=== PATIENT | male | born 1940 | race Caucasian/White ===

== ENCOUNTER → 2019-04-18 10:49 | Outpatient (BNVA) | payer MEDICARE, SELFPAY | PROVIDERS: PCP Family Medicine; Visit Provider Family Medicine | DX: E78.2 Mixed hyperlipidemia (principal); E11.9 Type 2 diabetes mellitus without complications; Z79.4 Long term (current) use of insulin; K21.9 Gastro-esophageal reflux disease without esophagitis; I10 Essential (primary) hypertension; G62.9 Polyneuropathy, unspecified; R52 Pain, unspecified; J61 Pneumoconiosis due to asbestos and other mineral fibers | CPT/HCPCS: 80053; 80061; 83036; 85025 ==

== ENCOUNTER → 2019-10-09 16:07 | Outpatient (BNVA) | payer MEDICARE, SELFPAY | PROVIDERS: PCP Family Medicine; Visit Provider Family Medicine | DX: E11.9 Type 2 diabetes mellitus without complications (principal); M10.9 Gout, unspecified; E78.2 Mixed hyperlipidemia; K57.92 Diverticulitis of intestine, part unspecified, without perforation or abscess without bleeding | CPT/HCPCS: 80053; 80061; 83036; 84550; 85025 ==

== ENCOUNTER → 2020-04-20 12:21 | Outpatient (BNVA) | payer MEDICARE, SELFPAY | PROVIDERS: PCP Family Medicine; Visit Provider Family Medicine | DX: E11.9 Type 2 diabetes mellitus without complications (principal); E78.2 Mixed hyperlipidemia; I10 Essential (primary) hypertension; K21.9 Gastro-esophageal reflux disease without esophagitis; N40.0 Benign prostatic hyperplasia without lower urinary tract symptoms; Z68.28 Body mass index [BMI] 28.0-28.9, adult | CPT/HCPCS: 80053; 80061; 83036; 84443; 85025; G0103 ==

== ENCOUNTER → 2020-07-27 09:25 | Outpatient (BNVA) | payer MEDICARE, SELFPAY | PROVIDERS: PCP Family Medicine; Visit Provider Family Medicine | DX: K21.9 Gastro-esophageal reflux disease without esophagitis (principal); E11.9 Type 2 diabetes mellitus without complications; E78.2 Mixed hyperlipidemia; I10 Essential (primary) hypertension; Z68.28 Body mass index [BMI] 28.0-28.9, adult | CPT/HCPCS: 80053; 80061; 83036; 84443; 85025 ==

== ENCOUNTER → 2020-12-03 12:14 | Outpatient (BNVA) | payer MEDICARE, SELFPAY | PROVIDERS: PCP Family Medicine; Visit Provider Family Medicine | DX: E11.9 Type 2 diabetes mellitus without complications (principal); E78.2 Mixed hyperlipidemia; I10 Essential (primary) hypertension; K21.9 Gastro-esophageal reflux disease without esophagitis; M19.90 Unspecified osteoarthritis, unspecified site | CPT/HCPCS: 80053; 80061; 83036; 84443; 85025 ==

== ENCOUNTER → 2021-09-07 09:41 | Outpatient (BNVA) | payer MEDICARE, SELFPAY | PROVIDERS: PCP Family Medicine; Visit Provider Family Medicine | DX: E11.9 Type 2 diabetes mellitus without complications (principal); E78.5 Hyperlipidemia, unspecified; M10.9 Gout, unspecified; I10 Essential (primary) hypertension; Z79.4 Long term (current) use of insulin; R05.8 Other specified cough | CPT/HCPCS: 71046; 80053; 80061; 83036; 84443; 84550; 85025; 87635 ==

== ENCOUNTER 2022-01-02 22:26 | Inpatient (IN) | payer MEDICARE, SELFPAY ==
[2022-01-02 22:28] VITALS: BP 161/76; PULSE 106; RESP 26; TEMP 36.9; O2SAT 91; BMI 27.3
--- NOTE | 2022-01-02 22:33 | XRR_ITS ---
PROCEDURE INFORMATION: Exam: XR Chest Exam date and time: 01/03/2022 12:01 AM Age: 81 years old Clinical indication: Pain; Chest pressure; Additional info: Cp TECHNIQUE: Imaging protocol: Radiologic exam of the chest. Views: 1 view. COMPARISON: CR XR chest 2V* [id number] 09/07/2021 9:43 AM FINDINGS: Lungs: Patchy bilateral airspace infiltrates. Pleural spaces: Small bilateral right greater than left pleural effusions which appears somewhat loculated on the right. Calcified pleural plaques appear chronic. Heart/Mediastinum: Unremarkable. No cardiomegaly. Bones/joints: Unremarkable. XR/XR chest 1V portable [id number] IMPRESSION: 1. Small bilateral right greater than left pleural effusions which appears somewhat loculated on the right. 2. Patchy bilateral airspace infiltrates. 3. Calcified pleural plaques appear chronic.
--- NOTE | 2022-01-02 22:40 | ED_ITS ---
Documented by User: KINZA Hylton 01/03/22 00:42 HPI - SOB/Dyspnea General: Chief Complaint: Shortness of Breath/Dyspnea Stated Complaint: SOB Time Seen by Provider: 01/02/22 22:31 History of Present Illness: HPI Narrative: 81-year-old male patient comes in today for complaints of shortness of breath. Patient was treated for acute bronchitis by his primary care at the first of the month. Patient has a history of diabetes, degenerative disc disease, COPD, GERD, hyperlipidemia, hypertension, asbestosis. Patient routinely sees Dr. Xavier and has no history of congestive heart failure. Patient reports no improvement in shortness of breath even after completion of antibiotics and steroids as prescribed by primary care. Patient appears in no pain. Patient appears nontoxic. Patient uses oxygen 2 liters at home. Associated symptoms: Reports chest pain (Described as pressure); Deny fever(s) Review of Systems Const: Denies: fever(s) Card: Reports: chest pain (Described as pressure) Resp: Reports: dyspnea Musc: Reports: extremity swelling (Bilateral lower extremities) PFSH ED PFSH: Medical History Asbestosis BPH (benign prostatic hyperplasia) COPD (chronic obstructive pulmonary disease) DDD (degenerative disc disease) Diabetes GERD (gastroesophageal reflux disease) Gout History of sudden cardiac arrest successfully resuscitated Hyperlipidemia Hypertension Surgical History History of hip replacement Hx of bilateral cataract extraction Hx of non-cataract eye surgery Family History Mother CAD (coronary artery disease) Brother Diabetes Lung disease Sister Diabetes Denies family history of Clotting disorder Dementia Chronic kidney disease (CKD) Suicide Anesthesia complication Bleeding disorder Cancer Stroke Social History Smoking and tobacco status: never smoked Alcohol intake: never Marital status: History of recent travel: No Physical Exam Const: COMMON NORMALS: alert HENMT: COMMON NORMALS: normocephalic HEAD & SCALP: normocephalic Neck/C-Spine: CERVICAL SPINE: No pain with cervical ROM Resp: COMMON NORMALS: normal respiratory effort AUSCULTATION: diminished lung sounds Cardio: COMMON NORMALS: regular rhythm RATE: tachycardic RHYTHM: regular rhythm HEART SOUNDS: Murmur heart sound present GI: COMMON NORMALS: non-tender Back/Pelvis: COMMON NORMALS: thoracic and lumbar spine normal to inspection Extremity: NARRATIVE EXTREMITY EXAM: Bilateral lower extremity +1 pitting edema from knee down Neuro: SENSORIUM/ORIENTATION: Yes alert Skin: COMMON NORMALS: turgor normal GENERAL SKIN EXAM: turgor normal Course ED course: 2351, reviewed patient with Dr. Lopez regarding a creatinine of 6.0. We will plan to admit patient for LIU. We ordered further testing with magnesium and phosphorus and a CT of the renal to rule out obstruction. Vital Signs: Vital signs: Vital Signs Temperature 97.9 F 01/03/22 04:00 Pulse Rate 65 01/03/22 04:00 Respiratory Rate 17 01/03/22 04:00 Blood Pressure 128/71 01/03/22 04:00 Pulse Oximetry 94 01/03/22 04:00 Oxygen Delivery Me thod 01/03/22 03:17 Oxygen Flow Rate 4 01/03/22 03:17 MDM - SOB/Dyspnea Medical Decision Making Patient comes in today for continued complaints of shortness of breath even after completion of treatment for acute bronchitis. Patient also reports increased swelling to the lower extremities. On exam patient has decreased breath sounds in bilateral bases. Patient does have mild systolic murmur. Abdomen soft nontender. Skin is warm and dry. Patient does have +1 pitting edema to the lower extremities. Vital signs have some mild elevation of blood pressure, oxygen saturation of 91% with 4 L nasal cannula. Differential diagnosis includes CHF, pneumonia, LIU, respiratory failure. Lab Data : 01/02/22 22:50 01/02/22 22:50 Labs/Radiology: Radiology Impressions Chest X-Ray 01/02/22 22:33 IMPRESSION: 1. Small bilateral right greater than left pleural effusions which appears somewhat loculated on the right. 2. Patchy bilateral airspace infiltrates. 3. Calcified pleural plaques appear chronic. Abdomen/Pelvis CT 01/02/22 23:44 IMPRESSION: 1. Severe bilateral hydronephrosis and hydroureter with distention of the urinary bladder without focal obstructing lesion seen, findings may reflect urinary bladder outflow obstruction, however, an etiology is not forthcoming from this exam. 2. Diverticulosis without diverticulitis. 3. Constipation. 4. Bilateral hip arthroplasty changes. 5. Cardiomegaly. 6. Coronary artery atherosclerotic calcifications. 7. Bibasilar atelectasis versus infiltrate, dedicated chest CT could further evaluate this given a somewhat localized appearance of the airspace opacities. 8. Pleural calcifications. 9. Small right pleural effusion. Laboratory Results WBC 12.9 10^3/uL (4.0-10.0) H 01/02/22 22:50 RBC 3.66 10^6/uL (4.1-5.3) L 01/02/22 22:50 Hgb 10.6 g/dL (11.7-16.6) L 01/02/22 22:50 Hct 34.0 % (42.0-52.0) L 01/02/22 22:50 MCV 92.9 fl (80-94) 01/02/22 22:50 MCH 29.0 pg (28.0-34.0) 01/02/22 22:50 MCHC 31.2 g/dL (30.0-36.0) 01/02/22 22:50 RDW 13.9 % (12.1-15.1) 01/02/22 22:50 Plt Count 271 10^3/cmm (130-400) 01/02/22 22:50 MPV 10.1 fL (7.4-10.4) 01/02/22 22:50 Neut % (Auto) 86.5 % 01/02/22 22:50 Lymph % (Auto) 4.7 % 01/02/22 22:50 [place] % (Auto) 6.8 % 01/02/22 22:50 Eos % (Auto) 1.3 % 01/02/22 22:50 Baso % (Auto) 0.2 % 01/02/22 22:50 Neut # (Auto) 11.17 10^3/uL (1.8-7.7) H 01/02/22 22:50 Lymph # (Auto) 0.6 10^3/uL (0.8-4.8) L 01/02/22 22:50 [place] # (Auto) 0.9 10^3/uL (0.2-0.9) 01/02/22 22:50 Eos # (Auto) 0.2 10^3/uL (0.0-0.8) 01/02/22 22:50 Baso # (Auto) 0.0 10^3/uL (0.0-0.1) 01/02/22 22:50 Nucleated RBC % (auto) 0 % 01/02/22 22:50 Nucleated RBCs # 0.0 /100WBC 01/02/22 22:50 D-Dimer 1.13 ug/mIFEU (0-0.59) H 01/02/22 22:50 Sodium 141 mmol/L (136-145) 01/02/22 22:50 Potassium 4.7 mmol/L (3.5-5.1) 01/02/22 22:50 Chloride 100 mmol/L (98-107) 01/02/22 22:50 Carbon Dioxide 29 mmol/L (22-29) 01/02/22 22:50 Anion Gap 16.7 (5-19) 01/02/22 22:50 BUN 60 mg/dL (8-23) H 01/02/22 22:50 Creatinine 6.0 mg/dL (0.7-1.2) H* 01/02/22 22:50 GFR Calculation Not Reportable 01/02/22 22:50 Glucose 197 mg/dL (65-115) H 01/02/22 22:50 Calculated Osmolality 314 mOsm/kg (285-295) H 01/02/22 22:50 Calcium 8.5 mg/dL (8.5-10.5) 01/02/22 22:50 Phosphorus 6.2 mg/dL (2.5-4.5) H 01/02/22 22:50 Magnesium 4.0 mg/dL (1.7-2.3) H 01/02/22 22:50 Total Bilirubin 0.3 mg/dL (0.15-1.2) 01/02/22 22:50 AST 18 U/L (0-40) 01/02/22 22:50 ALT 11 U/L (0-41) 01/02/22 22:50 Alkaline Phosphatase 99 U/L (40-130) 01/02/22 22:50 Troponin T Baseline 68 ng/L (0-15) H 01/02/22 22:50 Troponin T 120 Minute 67.08 ng/L (0-15) H 01/03/22 00:42 Delta Troponin T -0.92 ABS# (0-10) L 01/03/22 00:42 C-Reactive Protein 80.5 mg/L (0.0-4.9) H 01/02/22 22:50 NT-Pro-B Natriuret Pep 2302 pg/mL (0-450) H 01/02/22 22:50 Total Protein 6.9 g/dL (6.6-8.7) 01/02/22 22:50 Albumin 3.4 g/dL (3.5-5.2) L 01/02/22 22:50 Globulin 3.5 g/dL (1.3-4.6) 01/02/22 22:50 Procalcitonin 0.23 ng/mL (0-0.5) 01/02/22 22:50 TSH 1.61 uIU/mL (0.27-4.20) 01/02/22 22:50 Nasal Influ A H1 2009 PCR Not detected (NOT DETECT) 01/03/22 00:43 Adenovirus (PCR) Not detected (NOT DETECT) 01/03/22 00:43 C. pneumoniae DNA (PCR) Not detected (NOT DETECT) 01/03/22 00:43 Coronavirus 229E (PCR) Not detected (NOT DETECT) 01/03/22 00:43 Human Metapneumovir PCR Not detected (NOT DETECT) 01/03/22 00:43 Influenza A (H1) PCR Not detected (NOT DETECT) 01/03/22 00:43 Influenza A (H3) PCR Not detected (NOT DETECT) 01/03/22 00:43 Influenza Type A (PCR) Not detected (NOT DETECT) 01/03/22 00:43 Influenza Type B (PCR) Not detected (NOT DETECT) 01/03/22 00:43 M. pneumoniae (PCR) Not detected (NOT DETECT) 01/03/22 00:43 Parainfluenza 1 (PCR) Not detected (NOT DETECT) 01/03/22 00:43 Parainfluenza 2 (PCR) Not detected (NOT DETECT) 01/03/22 00:43 Parainfluenza 3 (PCR) Not detected (NOT DETECT) 01/03/22 00:43 Parainfluenza 4 (PCR) Not detected (NOT DETECT) 01/03/22 00:43 RSV Type A (PCR) Not detected (NOT DETECT) 01/03/22 00:43 RSV Type B (PCR) Not detected (NOT DETECT) 01/03/22 00:43 Entero/Rhino (PCR) Not detected (NOT DETECT) 01/03/22 00:43 SARS-CoV-2 (PCR) Not detected (NOT DETECT) 01/03/22 00:43 Discharge Plan Discharge Patient Disposition: Admitted As Inpatient Admit Provider: Scott Corrales Clinical Impression: Acute renal failure, Lower obstructive uropathy Condition: Fair Coding Level of Care Code ED [place] Layup Line Back Feeder for Chg Fwd Exam Comprehensive Documented by User: Gordy Lopez DO 01/03/22 05:01 HPI - SOB/Dyspnea General: Chief Complaint: Shortness of Breath/Dyspnea Stated Complaint: SOB Time Seen by Provider: 01/02/22 22:31 PFSH ED PFSH: Medical History Asbestosis BPH (benign prostatic hyperplasia) COPD (chronic obstructive pulmonary disease) DDD (degenerative disc disease) Diabetes GERD (gastroesophageal reflux disease) Gout History of sudden cardiac arrest successfully resuscitated Hyperlipidemia Hypertension Surgical History History of hip replacement Hx of bilateral cataract extraction Hx of non-cataract eye surgery Family History Mother CAD (coronary artery disease) Brother Diabetes Lung disease Sister Diabetes Denies family history of Clotting disorder Dementia Chronic kidney disease (CKD) Suicide Anesthesia complication Bleeding disorder Cancer Stroke Social History Smoking and tobacco status: never smoked Alcohol intake: never Marital status: History of recent travel: No Course Vital Signs: Vital signs: Vital Signs Temperature 97.9 F 01/03/22 04:00 Pulse Rate 65 01/03/22 04:00 Respiratory Rate 17 01/03/22 04:00 Blood Pressure 128/71 01/03/22 04:00 Pulse Oximetry 94 01/03/22 04:00 Oxygen Delivery Me thod 01/03/22 03:17 Oxygen Flow Rate 4 01/03/22 03:17 MDM - SOB/Dyspnea Medical Decision Making Patient comes in today for continued complaints of shortness of breath even after completion of treatment for acute bronchitis. Patient also reports increased swelling to the lower extremities. On exam patient has decreased breath sounds in bilateral bases. Patient does have mild systolic murmur. Abdomen soft nontender. Skin is warm and dry. Patient does have +1 pitting edema to the lower extremities. Vital signs have some mild elevation of blood pressure, oxygen saturation of 91% with 4 L nasal cannula. Differential diagnosis includes CHF, pneumonia, LIU, respiratory failure. This patient was originally seen by KINZA Toussaint.? I agree with his history, evaluation, and treatment. This patient is found to have a creatinine of 6 with a BUN of 60. No history of renal failure. CT was performed for kidney structure and to rule out obstructive uropathy. It shows significant bilateral hydronephrosis and hydroureter with distention of the urinary bladder. Cervantes is placed, with 1100 mL immediately out. He will be admitted. Hospitalist agrees. Lab Data : 01/02/22 22:50 01/02/22 22:50 Labs/Radiology: Radiology Impressions Chest X-Ray 01/02/22 22:33 IMPRESSION: 1. Small bilateral right greater than left pleural effusions which appears somewhat loculated on the right. 2. Patchy bilateral airspace infiltrates. 3. Calcified pleural plaques appear chronic. Abdomen/Pelvis CT 01/02/22 23:44 IMPRESSION: 1. Severe bilateral hydronephrosis and hydroureter with distention of the urinary bladder without focal obstructing lesion seen, findings may reflect urinary bladder outflow obstruction, however, an etiology is not forthcoming from this exam. 2. Diverticulosis without diverticulitis. 3. Constipation. 4. Bilateral hip arthroplasty changes. 5. Cardiomegaly. 6. Coronary artery atherosclerotic calcifications. 7. Bibasilar atelectasis versus infiltrate, dedicated chest CT could further evaluate this given a somewhat localized appearance of the airspace opacities. 8. Pleural calcifications. 9. Small right pleural effusion. Laboratory Results WBC 12.9 10^3/uL (4.0-10.0) H 01/02/22 22:50 RBC 3.66 10^6/uL (4.1-5.3) L 01/02/22 22:50 Hgb 10.6 g/dL (11.7-16.6) L 01/02/22 22:50 Hct 34.0 % (42.0-52.0) L 01/02/22 22:50 MCV 92.9 fl (80-94) 01/02/22 22:50 MCH 29.0 pg (28.0-34.0) 01/02/22 22:50 MCHC 31.2 g/dL (30.0-36.0) 01/02/22 22:50 RDW 13.9 % (12.1-15.1) 01/02/22 22:50 Plt Count 271 10^3/cmm (130-400) 01/02/22 22:50 MPV 10.1 fL (7.4-10.4) 01/02/22 22:50 Neut % (Auto) 86.5 % 01/02/22 22:50 Lymph % (Auto) 4.7 % 01/02/22 22:50 [place] % (Auto) 6.8 % 01/02/22 22:50 Eos % (Auto) 1.3 % 01/02/22 22:50 Baso % (Auto) 0.2 % 01/02/22 22:50 Neut # (Auto) 11.17 10^3/uL (1.8-7.7) H 01/02/22 22:50 Lymph # (Auto) 0.6 10^3/uL (0.8-4.8) L 01/02/22 22:50 [place] # (Auto) 0.9 10^3/uL (0.2-0.9) 01/02/22 22:50 Eos # (Auto) 0.2 10^3/uL (0.0-0.8) 01/02/22 22:50 Baso # (Auto) 0.0 10^3/uL (0.0-0.1) 01/02/22 22:50 Nucleated RBC % (auto) 0 % 01/02/22 22:50 Nucleated RBCs # 0.0 /100WBC 01/02/22 22:50 D-Dimer 1.13 ug/mIFEU (0-0.59) H 01/02/22 22:50 Sodium 141 mmol/L (136-145) 01/02/22 22:50 Potassium 4.7 mmol/L (3.5-5.1) 01/02/22 22:50 Chloride 100 mmol/L (98-107) 01/02/22 22:50 Carbon Dioxide 29 mmol/L (22-29) 01/02/22 22:50 Anion Gap 16.7 (5-19) 01/02/22 22:50 BUN 60 mg/dL (8-23) H 01/02/22 22:50 Creatinine 6.0 mg/dL (0.7-1.2) H* 01/02/22 22:50 GFR Calculation Not Reportable 01/02/22 22:50 Glucose 197 mg/dL (65-115) H 01/02/22 22:50 Calculated Osmolality 314 mOsm/kg (285-295) H 01/02/22 22:50 Calcium 8.5 mg/dL (8.5-10.5) 01/02/22 22:50 Phosphorus 6.2 mg/dL (2.5-4.5) H 01/02/22 22:50 Magnesium 4.0 mg/dL (1.7-2.3) H 01/02/22 22:50 Total Bilirubin 0.3 mg/dL (0.15-1.2) 01/02/22 22:50 AST 18 U/L (0-40) 01/02/22 22:50 ALT 11 U/L (0-41) 01/02/22 22:50 Alkaline Phosphatase 99 U/L (40-130) 01/02/22 22:50 Troponin T Baseline 68 ng/L (0-15) H 01/02/22 22:50 Troponin T 120 Minute 67.08 ng/L (0-15) H 01/03/22 00:42 Delta Troponin T -0.92 ABS# (0-10) L 01/03/22 00:42 C-Reactive Protein 80.5 mg/L (0.0-4.9) H 01/02/22 22:50 NT-Pro-B Natriuret Pep 2302 pg/mL (0-450) H 11 22:50 Total Protein 6.9 g/dL (6.6-8.7) 01/02/22 22:50 Albumin 3.4 g/dL (3.5-5.2) L 01/02/22 22:50 Globulin 3.5 g/dL (1.3-4.6) 01/02/22 22:50 Procalcitonin 0.23 ng/mL (0-0.5) 01/02/22 22:50 TSH 1.61 uIU/mL (0.27-4.20) 01/02/22 22:50 Nasal Influ A H1 2009 PCR Not detected (NOT DETECT) 01/03/22 00:43 Adenovirus (PCR) Not detected (NOT DETECT) 01/03/22 00:43 C. pneumoniae DNA (PCR) Not detected (NOT DETECT) 01/03/22 00:43 Coronavirus 229E (PCR) Not detected (NOT DETECT) 01/03/22 00:43 Human Metapneumovir PCR Not detected (NOT DETECT) 01/03/22 00:43 Influenza A (H1) PCR Not detected (NOT DETECT) 01/03/22 00:43 Influenza A (H3) PCR Not detected (NOT DETECT) 01/03/22 00:43 Influenza Type A (PCR) Not detected (NOT DETECT) 01/03/22 00:43 Influenza Type B (PCR) Not detected (NOT DETECT) 01/03/22 00:43 M. pneumoniae (PCR) Not detected (NOT DETECT) 01/03/22 00:43 Parainfluenza 1 (PCR) Not detected (NOT DETECT) 01/03/22 00:43 Parainfluenza 2 (PCR) Not detected (NOT DETECT) 01/03/22 00:43 Parainfluenza 3 (PCR) Not detected (NOT DETECT) 01/03/22 00:43 Parainfluenza 4 (PCR) Not detected (NOT DETECT) 01/03/22 00:43 RSV Type A (PCR) Not detected (NOT DETECT) 01/03/22 00:43 RSV Type B (PCR) Not detected (NOT DETECT) 01/03/22 00:43 Entero/Rhino (PCR) Not detected (NOT DETECT) 01/03/22 00:43 SARS-CoV-2 (PCR) Not detected (NOT DETECT) 01/03/22 00:43 Discharge Plan Discharge Patient Disposition: Admitted As Inpatient Admit Provider: Scott Corrales Clinical Impression: Acute renal failure, Lower obstructive uropathy Condition: Fair Coding Level of Care Code ED [place] [employer]up Line Back Feeder for Chg Fwd Exam Comprehensive
--- NOTE | 2022-01-02 22:44 | ECG_ITS ---
[facility] Test Date: 2022-01-02 Pat Name: Darin Bhardwaj Department: Room: Gender: Male Inventory Accountant: : 1940 Requested By: Raul Salazar Order Number: [id number] Grace MD: Burke Xavier M.D. Measurements Intervals [place] Rate: 98 P: 26 FL: 168 QRS: -19 QRSD: 98 T: 63 QT: 307 QTc: 394 Interpretive Statements SINUS RHYTHM NONSPECIFIC T-WAVE ABNORMALITY No previous ECG available for comparison Electronically Signed On 01-04-2022 7:01:17 DESIZING PAD OPERATOR by Burke Xavier M.D. [email or web address] [email or web address]/store/[id number]
[2022-01-02 23:01] LABS: Basophils % 0.2 %; Eosinophils # 0.2 10^3/uL (0.0-0.8); Eosinophils % 1.3 %; Hemoglobin 10.6 g/dL (11.7-16.6); Lymphocytes # 0.6 10^3/uL (0.8-4.8); Lymphocytes % 4.7 %; Mean Corpuscular HGB Conc 31.2 g/dL (30.0-36.0); Mean Corpuscular Volume 92.9 fl (80-94); Mean Platelet Volume 10.1 fL (7.4-10.4); Monocytes # 0.9 10^3/uL (0.2-0.9); Monocytes % 6.8 %; Neutrophils # 11.17 10^3/uL (1.8-7.7); Neutrophils % 86.5 %; Nucleated Red Blood Cells % 0 %; Platelet Count 271 10^3/cmm (130-400); Red Blood Count 3.66 10^6/uL (4.1-5.3); Red Cell Distribution Width 13.9 % (12.1-15.1); White Blood Count 12.9 10^3/uL (4.0-10.0)
[2022-01-02 23:03] VITALS: BP 153/79; PULSE 97; RESP 18; O2SAT 96
[2022-01-02 23:16] VITALS: BP 153/77; PULSE 94; RESP 20; O2SAT 97
[2022-01-02 23:17] LABS: Troponin(5th) Baseline 68 ng/L (0-15)
[2022-01-02 23:25] LABS: Alanine Aminotransferase 11 U/L (0-41); Albumin Level 3.4 g/dL (3.5-5.2); Alkaline Phosphatase 99 U/L (40-130); Anion Gap 16.7 (5-19); Aspartate Amino Transferase 18 U/L (0-40); Blood Urea Nitrogen 60 mg/dL (8-23); Calcium 8.5 mg/dL (8.5-10.5); Carbon Dioxide 29 mmol/L (22-29); Chloride 100 mmol/L (98-107); Globulin 3.5 g/dL (1.3-4.6); Glucose 197 mg/dL (65-115); NT Pro B Type Natriuretic Pept 2302 pg/mL (0-450); Osmolality Calculated 314 mOsm/kg (285-295); Potassium 4.7 mmol/L (3.5-5.1); Sodium 141 mmol/L (136-145); Thyroid Stimulating Hormone 1.61 uIU/mL (0.27-4.20); Total Bilirubin 0.3 mg/dL (0.15-1.2); Total Protein 6.9 g/dL (6.6-8.7)
[2022-01-02 23:30] VITALS: BP 151/78; PULSE 93; RESP 16; O2SAT 95
--- NOTE | 2022-01-02 23:44 | CTR_ITS ---
PROCEDURE INFORMATION: Exam: CT Abdomen And Pelvis Without Contrast Exam date and time: 01/03/2022 12:02 AM Age: 81 years old Clinical indication: Other: Acute renal failure TECHNIQUE: Imaging protocol: Computed tomography of the abdomen and pelvis without contrast. Radiation optimization: All CT scans at this facility use at least one of these dose optimization techniques: automated exposure control; mA and/or kV adjustment per patient size (includes targeted exams where dose is matched to clinical indication); or iterative reconstruction. COMPARISON: CT chest w con* [id number] 03/07/2016 8:49 AM RADIATION DOSE METRICS: Total DLP (mGy-cm): 910.04 FINDINGS: Lungs: Bibasilar atelectasis versus infiltrate, dedicated chest CT could further evaluate this given a somewhat localized appearance of the airspace opacities. Pleural spaces: Pleural calcifications. Small right pleural effusion. Heart: Cardiomegaly. Coronary artery atherosclerotic calcifications. Liver: Normal. No mass. Gallbladder and bile ducts: Normal. No calcified stones. No ductal dilation. Pancreas: Normal. No ductal dilation. Spleen: Normal. No splenomegaly. Adrenal glands: Normal. No mass. Kidneys and ureters: Severe bilateral hydronephrosis and hydroureter with distention of the urinary bladder without focal obstructing lesion seen, findings may reflect urinary bladder outflow obstruction, however, an etiology is not forthcoming from this exam. Stomach and bowel: Diverticulosis without diverticulitis. Constipation. Appendix: No evidence of appendicitis. Intraperitoneal space: Unremarkable. No free air. No significant fluid collection. Vasculature: Unremarkable. No abdominal aortic aneurysm. Lymph nodes: Unremarkable. No enlarged lymph nodes. Urinary bladder: See Kidneys and ureters finding. Reproductive: Unremarkable as visualized. Bones/joints: Bilateral hip arthroplasty changes. Soft tissues: Unremarkable. CT/CT kidney stone [id number] IMPRESSION: 1. Severe bilateral hydronephrosis and hydroureter with distention of the urinary bladder without focal obstructing lesion seen, findings may reflect urinary bladder outflow obstruction, however, an etiology is not forthcoming from this exam. 2. Diverticulosis without diverticulitis. 3. Constipation. 4. Bilateral hip arthroplasty changes. 5. Cardiomegaly. 6. Coronary artery atherosclerotic calcifications. 7. Bibasilar atelectasis versus infiltrate, dedicated chest CT could further evaluate this given a somewhat localized appearance of the airspace opacities. 8. Pleural calcifications. 9. Small right pleural effusion.
[2022-01-02 23:45] VITALS: BP 156/73; PULSE 92; RESP 18; O2SAT 97
[2022-01-03] VITALS (18 sets, daily range): BP systolic 121–154; BP diastolic 64–109; PULSE 65–88; RESP 14–22; TEMP 36.6–37; O2SAT 93–97
[2022-01-03 00:05] LABS: Phosphorus 6.2 mg/dL (2.5-4.5)
[2022-01-03 00:07] LABS: C Reactive Protein 80.5 mg/L (0.0-4.9)
[2022-01-03 00:14] LABS: Procalcitonin 0.23 ng/mL (0-0.5)
--- NOTE | 2022-01-03 00:33 | ECG_ITS ---
[facility] Test Date: 2022-01-03 Pat Name: Darin Bhardwaj Department: Room: 253 Gender: Male Tile Professional: : 1940 Requested By: Raul Salazar Order Number: [id number] Grace MD: Burke Xavier M.D. Measurements Intervals [place] Rate: 93 P: 34 [place]: 185 QRS: -19 QRSD: 102 T: 59 QT: 335 QTc: 417 Interpretive Statements SINUS RHYTHM LEFT ATRIAL ENLARGEMENT [-0.15mV P-WAVE IN V1/V2] Compared to ECG 01/02/2022 22:44:48 Atrial abnormality now present T-wave abnormality no longer present Electronically Signed On 01-04-2022 7:18:52 CLIENT RELATION SPECIALIST by Burke Xavier M.D. [id number]
--- NOTE | 2022-01-03 01:10 | P.HP_ITS ---
Providers/Chief Complaint Admitting Physician: Scott Corrales Primary Care Provider: Lucinda Rand MD Chief Complaint: SOB History of Present Illness Pleasant 81-year-old gentleman with history of COPD, BPH, history of asbestosis, on 2 L oxygen only nightly usually, among other comorbidities about 10 days ago was seen by his primary provider and started on treatment for bilateral lower lobe pneumonia, completed a course of antibiotic with Levaquin, Solu-Medrol. He reports having persistent dyspnea, particular with exertion, to the point that once he was trying to get some ice from the ice dispenser at the fridge and while doing that he got lightheaded and fainted. He denies any chest pain. He sees Dr. Xavier in office, but denies any past CAD history, history of CHF, or other cardiac problems, but states Giurgius due to general medical condition with diabetes, hypertension, as well as asbestosis. Per office documentation has history of sudden cardiac arrest. Prior history of abnormal stress test, but with significant reversibility, managed expectantly. His states he had quite a bit of cough last night. He states otherwise not coughing much today. No phlegm production. Here he is found to require 4 L nasal cannula oxygen. He is afebrile, with le ukocytosis 12.9. Mostly neutrophilic 11.17. On chemistries found to have acute kidney injury creatinine of 6, BUN 60. Appears to have acute urinary retention. Cervantes catheter placed and so far 2 L are evacuated. He is found to have bilateral lower extremity edema. Renal protocol CT was obtained. IMPRESSION: 1. Severe bilateral hydronephrosis and hydroureter with distention of the urinary bladder without focal obstructing lesion seen, findings may reflect urinary bladder outflow obstruction, however, an etiology is not forthcoming from this exam. 2. Diverticulosis without diverticulitis. 3. Constipation. 4. Bilateral hip arthroplasty changes. 5. Cardiomegaly. 6. Coronary artery atherosclerotic calcifications. 7. Bibasilar atelectasis versus infiltrate, dedicated chest CT could further evaluate this given a somewhat localized appearance of the airspace opacities. 8. Pleural calcifications. 9. Small right pleural effusion. Review of Systems Const: Denies: fever(s), chills, body aches or malaise Eyes: Denies: change in vision, eye discomfort or eye redness ENMT: Denies: throat pain, oral sores or ear or mastoid pain Card: Reports: edema, lightheadedness, syncope, pre-syncope and dyspnea on exertion; Denies: chest pain Resp: Denies: dyspnea, productive cough, change in phlegm color or hemoptysis GI: Denies: abdominal pain, nausea, vomiting, diarrhea, constipation, hematochezia or melena : Denies: flank pain, difficulty urinating, urinary frequency or hematuria Musc: Denies: back pain, joint swelling or joint redness Skin/Breast: Denies: rash or new lesions Neuro: Denies: headache(s), numbness in extremities, weakness in extremities, dizziness, confusion or seizure-like activity Endo: Denies: polyuria or polydipsia Kushal/Lymph: Denies: easy bleeding or tender lymph nodes All/Imm: Denies: urticaria or tongue swelling Medications/Allergies Home Medications Medication Instructions Recorded Confirmed Last Taken Type metoprolol tartrate 25 mg tablet 25 mg PO BID 30 days #60 tabs 12/03/20 12/21/21 Unknown Rx pen needle, diabetic 31 gauge x #100 ea 12/03/20 12/21/21 Unknown Rx 5/16 (Lite Touch Insulin Pen Barton) albuterol sulfate 90 mcg/actuation 2 puff inhalation QID #8.5 grams 09/07/21 12/21/21 Unknown Rx aerosol inhaler (ProAir HFA) amlodipine 10 mg tablet See Rx Instructions .Route 09/07/21 12/21/21 Unknown Rx .COMPLEX #90 tabs azithromycin 250 mg tablet See Rx Instructions PO .COMPLEX #6 09/07/21 12/21/21 Unknown Rx (Zithromax Z-Freddy) tabs finasteride 5 mg tablet See Rx Instructions .Route 09/07/21 12/21/21 Unknown Rx .COMPLEX #90 tabs fosinopril 40 mg tablet See Rx Instructions .Route 09/07/21 12/21/21 Unknown Rx .COMPLEX #90 tabs gabapentin 300 mg capsule See Rx Instructions .Route 09/07/21 12/21/21 Unknown Rx .COMPLEX #270 caps hydrochlorothiazide 25 mg tablet See Rx Instructions .Route 09/07/21 12/21/21 Unknown Rx .COMPLEX #90 tabs omeprazole 20 mg capsule,delayed See Rx Instructions .Route 10/11/21 12/21/21 Unknown Rx release .COMPLEX #180 caps insulin glargine 100 unit/mL (3 See Rx Instructions .Route 11/10/21 12/21/21 Unknown Rx mL) subcutaneous pen (Lantus .COMPLEX #15 mL Solostar U-100 Insulin) tramadol 50 mg tablet 50 mg PO Q8H #90 tabs 11/24/21 12/21/21 Unknown Rx budesonide-formoterol HFA 160 See Rx Instructions .Route 12/20/21 12/21/21 Unknown Rx mcg-4.5 mcg/actuation aerosol .COMPLEX #10.2 grams inhaler (Symbicort) levofloxacin 750 mg tablet 750 mg PO DAILY 10 days #10 tabs 12/21/21 12/21/21 Unknown Rx methylprednisolone 4 mg tablets in See Rx Instructions PO PER PKG DIR 12/21/21 12/21/21 Unknown Rx a dose pack (Medrol (Freddy)) #21 ea promethazine-DM 6.25 mg-15 mg/5 mL 5 ml PO Q6H PRN cough #160 mL 12/21/21 12/21/21 Unknown Rx oral syrup Allergies Allergy/AdvReac Type Severity Reaction Status Date / Time metformin Allergy Unknown Verified 12/21/21 13:21 PFSH Acute PFSH: Medical History Asbestosis BPH (benign prostatic hyperplasia) COPD (chronic obstructive pulmonary disease) DDD (degenerative disc disease) Diabetes GERD (gastroesophageal reflux disease) Gout History of sudden cardiac arrest successfully resuscitated Hyperlipidemia Hypertension Surgical History History of hip replacement Hx of bilateral cataract extraction Hx of non-cataract eye surgery Family History Mother CAD (coronary artery disease) Brother Diabetes Lung disease Sister Diabetes Denies family history of Clotting disorder Dementia Chronic kidney disease (CKD) Suicide Anesthesia complication Bleeding disorder Cancer Stroke Social History Smoking and tobacco status: never smoked Alcohol intake: never Marital status: History of recent travel: No Vitals/I&O/Wt Last Vital Signs Temp 98.5 F 01/02/22 22:28 Pulse 92 01/02/22 23:45 Resp 18 01/02/22 23:45 BP 156/73 01/02/22 23:45 Pulse Ox 97 01/02/22 23:45 O2 Del Method 01/02/22 23:03 O2 Flow Rate 4 01/02/22 23:03 Weight last 48 hrs Weight 81.647 kg Physical Exam Narrative: Family at bedside Const: COMMON NORMALS: patient oriented x3 and alert GENERAL APPEARANCE: cooperative ORIENTATION/CONSCIOUSNESS: Yes awake HENMT: COMMON NORMALS: oropharynx normal Resp: COMMON NORMALS: normal respiratory effort and clear to auscultation bilaterally AUSCULTATION: rales bilateral at the base Cardio: COMMON NORMALS: no JVD, regular rhythm, S1 normal heart sound present, S2 normal heart sound present and No murmurs present (Cardio) RHYTHM: regular rhythm HEART SOUNDS: S1 normal heart sound present and S2 normal heart sound present GI: COMMON NORMALS: Normal to inspection, nondistended, normoactive bowel sounds present, Soft to palpation and non-tender PALPATION: Yes Soft to palpation Extremity: COMMON NORMALS: no joint enlargement GENERAL: Yes edema (3+ LE. Extends to thighs. Min edema arms) Neuro: COMMON NORMALS: patient oriented x3 and moves all extremities SENSORIUM/ORIENTATION: Yes alert Skin: COMMON NORMALS: no rashes or lesions noted GENERAL SKIN EXAM: no rashes or lesions noted Urinary Catheter Management: Cervantes: Cath Placed During This Visit: yes Urinary Catheter Date of Insertion: 01/03/22 Urinary Catheter Time of Insertion: 00:25 Data : 01/02/22 22:50 01/02/22 22:50 A&P Assessment and plan (1) Syncope: Etiology not exactly clear, but does have a number of conditions that may have contributed, including new worsened hypoxia/respiratory failure requiring 4 L nasal cannula, hypoxia may have caused syncope with exertion. He reports severe exertional intolerance, with anasarca, possible acute CHF. Additionally assess D-dimer. Assess orthostatics. Complete troponin EKG series. Assess TTE. (2) CHF (congestive heart failure): Bilateral edema of lower extremities up to thighs, dyspnea exertion, cardiomegaly on CT, elevated NT proBNP but this is in setting of LIU. Possible acute CHF, type unknown. Additionally assessed by TTE. Otherwise possibly fluid overload secondary to LIU. As he is currently in LIU with relieved obstruction, 2 L evacuated so far, for now will not add diuretics, may enter diuretic phase with recovery from LIU as is. Monitor electrolytes. History of abnormal stress test, although without reversibility. Complete troponin EKG series. Consider further assessment, possibly repeat stress test depending on condition and other findings. With severe bilateral lower extremity edema we will also check venous duplex for DVT. TSH (3) LIU (acute kidney injury): LIU, creatinine 6, BUN 60. Suspect postrenal with primary outflow obstruction with ambulation, bilateral hydronephrosis. So far Cervantes placed and has since required 2 L. Suspect should improve with elevation of obstruction. Monitor electrolytes, monitor I&O as may enter diuretic phase with improvement. For now we will hold diuretics. Hold HCTZ, hold lisinopril. Continue finasteride, tamsulosin. Maintain Cervantes. Follow-up with urology. (4) Obstructive uropathy: As above. (5) Pneumonia: Possible persistent pneumonia, with still noted bibasilar atelectasis versus infiltrate. His states he was coughing quite a bit last night. He appears afebrile but does have leukocytosis 12.9. This may be in part from steroids. However, for now we will continue antibiotic until his condition can be reassessed over the hospital stay to see if antibiotics will need to be continued. Procalcitonin is not very impressive, somewhat borderline at 0.23, but also is in acute renal failure. Viral respiratory panel. Oxygen support. Wean down as tolerating. Antitussive s as needed. (6) Hypoxia: Noted acute hypoxic respiratory failure requiring 4 L nasal cannula oxygen. Normally only 2 L and only at night. This appears may be multifactorial with recent pneumonia, currently possible acute CHF. Superimposed also with history of COPD and asbestosis. Will additionally check D-dimer. Check lower extremity duplex. TTE Viral respiratory panel. I-S, for now continue renally dosed Levaquin, reassess condition. D-dimer minimally elevated in setting of acute renal failure. Lower suspicion for PE, her, will additionally request assessment by VQ scan given renal failure and TTE. (7) Troponin level elevated: Complete troponin EKG series. Assess with TTE. History of abnormal stress test but without reversibility. Currently with possible acute CHF. Syncopal episode. Monitor on telemetry. Aspirin. Beta-oksana. Add statin. (8) Pleural effusion, bilateral: Small. Consider follow-up imaging to confirm resolution. (9) Constipation: Add bowel regimen. Plan Asbestosis BPH COPD: 2L NC at night. DuoNebs scheduled and as needed. Budesonide nebs. DDD Diabetes: Lantus 25 units daily. SSI. Consistent carb diet. GERD Gout History of sudden cardiac arrest successfully resuscitated HLD HTN Requested home medications to be confirmed, please reconcile once available. Attestations Medical Necessity Statement*: Admission of over 2 midnights anticipated for assessment of management of LIU, possible acute CHF, anasarca, exertional intolerance, acute hypoxic respiratory failure, pneumonia and gentleman with underlying comorbid conditions as above. Coding Level of Care Code Acute Director Counseling [facility] for [facility] Fwd Diagnoses Syncope R55 CHF (congestive heart failure) I50.9 LIU (acute kidney injury) N17.9 Obstructive uropathy N13.9 Pneumonia J18.9 Hypoxia R09.02 Troponin level elevated R77.8 Pleural effusion, bilateral J90 Constipation K59.00
--- NOTE | 2022-01-03 01:10 | PC.NURSE ---
Report given to [facility] Karon
--- NOTE | 2022-01-03 01:11 | USCV_ITS ---
LashaeDarin santo Age: 81 Gender: M : 1940 Exam Date: 01/03/2022 02:27 Ordering Phys: Scott Corrales MD Technologist: Mary Bishop [place] [facility] [place]: Bilalteral leg swelling HISTORY: CHF with bilateral leg swelling PROCEDURES: The venous duplex Doppler examination of both lower extremities was performed in the standard fashion. The following venous structures were evaluated: common femoral vein, profunda vein, proximal portion of the greater saphenous vein, superficial femoral vein, and the popliteal vein. In addition, the posterior tibial and peroneal trunk were evaluated. Serial compression, augmentation maneuvers, and spectral Doppler flow evaluation were performed. FINDINGS: Normal 2-D Doppler and augmentation and compressibility throughout the lower extremity venous structures. Additional imaging through the proximal calf veins also reveals no thrombus. Limited evaluation of the greater saphenous vein is patent with no thrombus.. Multiple echolucent areas are noted in the subcutaneous tissue CONCLUSIONS 1. No evidence of DVT in the above-mentioned identifiable veins. 2. Echolucent areas in the subcutaneous plane, bilaterally, suggestive of fluid retention/edema Dr Burke Xavier MD [facility] (Electronically Signed) Final Date: 03 January 2022 07:59 S
--- NOTE | 2022-01-03 01:12 | USCV_ITS ---
Darin Bhardwaj Age: 81 Gender: M : 1940 Exam Date: 01/03/2022 02:48 Ordering Phys: Scott Corrales MD Technologist: Mary Bishop Exam Location: [facility] [place] Indication: CHF with syncope BP: 156 / 73 HR: 73 Rhythm: Sinus Technical Quality: Adequate MEASUREMENTS (Male / Female) Normal Values 2D ECHO LV Diastolic Diameter PLAX 3.6 cm 4.2 - 5.9 / 3.9 - 5.3 cm LV Systolic Diameter PLAX 2.8 cm LV Chamber Size 3.7 cm IVS Diastolic Thickness 1.2 cm 0.6 - 1.0 / 0.6 - 0.9 cm IVS Systolic Thickness 1.5 cm LVPW Diastolic Thickness 1.6 cm 0.6 - 1.0 / 0.6 - 0.9 cm LVPW Systolic Thickness 1.5 cm RV Chamber Size 3.5 cm LVOT Diameter 2.0 cm LV Ejection Fraction 2D Teich 44.5 % LV Ejection Fraction MOD 2C 72.3 % LV Ejection Fraction 2C AL 73.2 % LA Diameter 4.2 cm LA Width 2.7 cm LA Height 3.4 cm RA Width 4.0 cm RA Height 4.3 cm Aorta at Sinotubular Diameter 3.1 cm M-MODE Aortic Annulus Diameter 3.4 cm LA Ao Ratio MM 1.2 MV E Point Septal Separation 0.7 cm DOPPLER AV Peak Velocity 162.0 cm/s LVOT Peak Velocity 97.0 cm/s AV Area Cont Eq vti 1.9 cm squared AV Area Cont Eq pk 1.9 cm squared MV Area PHT 3.9 cm squared Mitral E to A Ratio 0.9 MV E' Velocity 58.0 cm/s Mitral E to MV E' Ratio 11.4 Mitral E to LV E' Lateral Ratio 8.8 Mitral E to LV E' Septal Ratio 16.5 TR Peak Velocity 298.3 cm/s TR Peak Gradient 35.6 mmHg TR Mean Velocity 189.9 cm/s TR Mean Gradient 18.5 mmHg TR Velocity Time Integral 75.2 cm TV Peak E Velocity 84.0 cm/s Right Atrial Pressure 3.0 mmHg Pulmonary Artery Systolic Pressu 38.6 mmHg RV Acceleration Time 0.2 s RV Ejection Time 0.4 s RV AcT/ET 0.5 FINDINGS Left Ventricle Normal left ventricular size and systolic function, EF 69 %. Mild left ventricular hypertrophy. No regional wall motion abnormalities. Grade I/IV diastolic dysfunction (abnormal relaxation filling pattern), normal to mildly elevated filling pressures. Right Ventricle The right ventricle is normal in size and function. Right Atrium The right atrium is normal in size. Left Atrium The left atrium is normal in size. Mitral Valve Thickened mitral valve. Mild mitral annular calcification. Aortic Valve Thickened aortic valve. Moderate aortic valve calcification. Tricuspid Valve Trace to mild tricuspid valve regurgitation. Pulmonic Valve Pulmonic valve not well visualized. Pericardium Normal pericardium without effusion. Aorta Normal ascending aorta dimension. IVC The inferior vena cava appears normal. CONCLUSIONS Normal left ventricular size and systolic function, EF 69 %. Mild left ventricular hypertrophy. No regional wall motion abnormalities. Grade I/IV diastolic dysfunction (abnormal relaxation filling pattern), normal to mildly elevated filling pressures. Thickened mitral valve. Mild mitral annular calcification. Thickened aortic valve. Moderate aortic valve calcification. Trace to mild tricuspid valve regurgitation. There is no pericardial effusion. There are no intracardiac masses. Compared to the previous study from 06/27/2018, there may not be significant change Dr Burke Xavier MD [facility] (Electronically Signed) Final Date: 03 January 2022 08:21 S
[2022-01-03 01:22] LABS: Troponin 5 2HR 67.08 ng/L (0-15)
--- NOTE | 2022-01-03 01:23 | PC.NURSE ---
Addendum entered by Blaire Fan RN 01/03/22 01:25: at bedside now and states she does not have medication list with her. Original Note: Unable to verify med rec at this time. Patient states his took her med list home with her.
[2022-01-03 01:25] LABS: Troponin 5 2HR Delta -0.92 ABS# (0-10)
[2022-01-03 01:27] LABS: D Dimer 1.13 ug/mIFEU (0-0.59)
--- NOTE | 2022-01-03 01:29 | NM_ITS ---
WS: [id number] NUCLEAR MEDICINE LUNG VENTILATION AND PERFUSION CLINICAL INFORMATION: assess for poss PE TECHNIQUE: Ventilation/perfusion lung scan with 28.1 mCi technetium 99m DTPA. 5.1 mCi MAA COMPARISON: None. FINDINGS: Patchy radiotracer uptake on the perfusion images. Diffuse patchy radiotracer deposition on the venti latory images with central bronchial deposition. Large matched defect in the RIGHT upper lobe anterio rly. A few additional smaller matched defects bilaterally and peripherally. Diffuse decreased ventilatory deposition in the upper lobes bilaterally may be due to emphysema. No focal mismatched ventilatory perfusion defects. NM/NM pul vent and perfus* [id number] IMPRESSION: 1. Indeterminate probability for pulmonary embolus. 2. This can be further evaluated with CTA PE study if renal function allows.
[2022-01-03 01:47] LABS: Glucose Point of Care 164 mg/dL (70-110)
[2022-01-03] MEDS: levoFLOXacin 500 mg Tablet PO (01:51)
[2022-01-03] MEDS: metoprolol tartrate 25 mg Tablet PO ×3 (01:51→20:05)
[2022-01-03] MEDS: heparin 5,000 unit/mL INJ 1 mL 5000 UNIT SUBCUT (01:51)
[2022-01-03 02:35] LABS: Add Urine Microscopic? YES; Bilirubin Urine Neg (Negative); Blood Urine 2+ (Negative); Glucose Urine UA 1+ (Normal); Ketones Urine Negative (Negative); Leukocyte Esterase Urine Negative (Negative); Nitrate Urine Negative (Negative); Protein Urine Neg (Negative); Urine Appearance Clear (CLEAR); Urine Color Colorless (Yellow); Urobilinogen Urine Neg (Negative); pH Urine 8 (5-7)
[2022-01-03 02:37] LABS: Add Urine Culture? No; WBC Urine 0-4 /hpf (0-5)
[2022-01-03 02:38] LABS: Urine Creatinine 13 mg/dL (39-259)
[2022-01-03 02:44] LABS: Adenovirus Not Detected (NOT DETECT); Chlamydia Pneumoniae Not Detected (NOT DETECT); Coronavirus 229E,HKU1,NL63,OC4 Not Detected (NOT DETECT); Human Metapneumovirus Not Detected (NOT DETECT); Human Rhinovirus/Enterovirus Not Detected (NOT DETECT); Influenza A Not Detected (NOT DETECT); Influenza A H1 Not Detected (NOT DETECT); Influenza A H1-2009 Not Detected (NOT DETECT); Influenza A H3 Not Detected (NOT DETECT); Influenza B Not Detected (NOT DETECT); Mycoplasma Pneumoniae Not Detected (NOT DETECT); Parainfluenza Virus Type 1 Not Detected (NOT DETECT); Parainfluenza Virus Type 2 Not Detected (NOT DETECT); Parainfluenza Virus Type 3 Not Detected (NOT DETECT); Parainfluenza Virus Type 4 Not Detected (NOT DETECT); Respiratory Syncytial Virus A Not Detected (NOT DETECT); Respiratory Syncytial Virus B Not Detected (NOT DETECT); SARS-COV-2 Not Detected (NOT DETECT)
[2022-01-03] MEDS: ipratropium-albuterol 3 mL Neb INHALATION ×4 (03:16→20:11)
[2022-01-03 03:19] LABS: Urea Nitrogen,Urine Random 104 mg/dL
--- NOTE | 2022-01-03 03:30 | PC.NURSE ---
Dr. Corrales notified of patient having over 3 liters of urine output since arriving on the floor. Patient's urine was clear to pale yellow upon arriving on floor and now has hematuria with blood clots. Ordered to irrigate saldivar now and PRN. Saldivar irrigated with blood clots returned. Ordered to clamp saldivar due to large urine output in short time. Saldivar clamped.
--- NOTE | 2022-01-03 04:14 | PC.NURSE ---
Manual irrigation performed to saldivar again at this time. Multiple blood clots returned.
--- NOTE | 2022-01-03 04:26 | PC.NURSE ---
Patient has continuous hematuria and blood clots. Dr. Corrales notified. CBI ordered.
--- NOTE | 2022-01-03 04:33 | ECG_ITS ---
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 Measurements Intervals [place]im Rate: 65 P: 33 VT: 167 QRS: -17 QRSD: 103 T: 57 QT: 383 QTc: 400 Interpretive Statements SINUS RHYTHM Compared to ECG 01/03/2022 00:47:36 Atrial abnormality no longer present Electronically Signed On 01-04-2022 7:19:17 SPOOL SALVAGER by Burke Xavier M.D. [id number]
[2022-01-03 05:04] LABS: Basophils % 0.2 %; Eosinophils # 0.2 10^3/uL (0.0-0.8); Eosinophils % 1.5 %; Hematocrit 33.9 % (42.0-52.0); Hemoglobin 10.3 g/dL (11.7-16.6); Lymphocytes # 0.7 10^3/uL (0.8-4.8); Lymphocytes % 5.2 %; Mean Corpuscular HGB Conc 30.4 g/dL (30.0-36.0); Mean Corpuscular Hemoglobin 28.2 pg (28.0-34.0); Mean Corpuscular Volume 92.9 fl (80-94); Mean Platelet Volume 10.2 fL (7.4-10.4); Monocytes % 7.9 %; Neutrophils # 10.96 10^3/uL (1.8-7.7); Neutrophils % 84.7 %; Nucleated Red Blood Cells % 0 %; Platelet Count 264 10^3/cmm (130-400); Red Blood Count 3.65 10^6/uL (4.1-5.3); Red Cell Distribution Width 14.2 % (12.1-15.1)
--- NOTE | 2022-01-03 05:10 | PC.NURSE ---
Saldivar catheter removed and three way saldivar placed. Manual irrigation x2 needed in order to get saldivar to drain. CBI started.
[2022-01-03 05:33] LABS: Anion Gap 13.4 (5-19); Blood Urea Nitrogen 65 mg/dL (8-23); Calcium 8.6 mg/dL (8.5-10.5); Carbon Dioxide 31 mmol/L (22-29); Chloride 99 mmol/L (98-107); Glucose 117 mg/dL (65-115); Osmolality Calculated 308 mOsm/kg (285-295); Potassium 4.4 mmol/L (3.5-5.1); Sodium 139 mmol/L (136-145); Troponin 5 6HR 66.56 ng/L (0-15)
[2022-01-03 05:37] LABS: Thyroid Stimulating Hormone 1.55 uIU/mL (0.27-4.20)
[2022-01-03 05:39] LABS: Troponin 5 6HR Delta -1.44 ng/L (0-12)
[2022-01-03 06:21] LABS: Glucose Point of Care 126 mg/dL (70-110)
[2022-01-03] MEDS: tamsulosin 0.4 mg Capsule PO (08:31)
[2022-01-03] MEDS: insulin glargine 100 units/1 mL 25 UNIT SUBCUT (08:31)
[2022-01-03] MEDS: finasteride 5 mg Tablet PO (08:31)
--- NOTE | 2022-01-03 08:47 | PM.MISC ---
Miscellaneous Note Note: Patient was seen examined CBI at bedside Urine color is light red I do see some clots as well Constipation: Getting better Hemodynamically stable Patient was eating breakfast Family at the bedside Awake and alert Clinical signs of fluid overload Bilateral lower extremity 3+ edema Abdomen soft S1, S2 No murmur No audible stridor or wheezing Currently doing well on room air Syncope Etiology unknown Could be related to vasovagal versus cardiogenic Follow-up with echo D-dimer is high Request venous Doppler Bladder outlet obstruction Hematuria could be related to over distention more than 2 L recovered If urine color is not improving by 2:[address] Castaneda Hemoglobin stable at 10 previous H&H was around 14 Bibasilar infiltrate most likely related to CHF exacerbation He was on oxygen at the time of my evaluation Oxygen pendant COPD uses 2 L of oxygen at nighttime LIU related to bladder out obstruction Creatinine improving Hold heparin Continue SCDs We will add Lasix for acute CHF exacerbation, preserved action fraction heart failure exacerbation, grade 1 diastolic function Will request venous Doppler I will continue empirical levofloxacin pneumonia coverage for now
[2022-01-03] MEDS: budesonide 0.5 mg/2 mL Neb 0.25 MG INHALATION ×2 (09:07→20:12)
[2022-01-03] MEDS: bumetanide 1 mg Tablet PO (09:50)
[2022-01-03 12:21] LABS: Glucose Point of Care 127 mg/dL (70-110)
[2022-01-03 16:46] LABS: Glucose Point of Care 132 mg/dL (70-110)
[2022-01-03] MEDS: atorvastatin 40 mg Tablet PO (20:05)
[2022-01-03 20:20] LABS: Glucose Point of Care 318 mg/dL (70-110)
[2022-01-03] MEDS: insulin lispro 100 unit/1 mL SUBCUT (21:06)
[2022-01-04] VITALS (7 sets, daily range): BP systolic 128–135; BP diastolic 62–72; PULSE 63–77; RESP 14–18; TEMP 36.5; O2SAT 96–98
[2022-01-04] MEDS: dextrose 50% syringe 50 mL IVP (00:24)
[2022-01-04 00:29] LABS: Glucose Point of Care 29 mg/dL (70-110)
[2022-01-04] MEDS: acetaminophen 325 mg Tablet 650 MG PO (00:50)
[2022-01-04 00:55] LABS: Glucose Point of Care 166 mg/dL (70-110)
[2022-01-04 02:51] LABS: Glucose Point of Care 229 mg/dL (70-110)
[2022-01-04] MEDS: ipratropium-albuterol 3 mL Neb INHALATION ×2 (03:06→07:47)
[2022-01-04 05:34] LABS: Basophils % 0.2 %; Eosinophils % 0.2 %; Hematocrit 33.6 % (42.0-52.0); Hemoglobin 10.2 g/dL (11.7-16.6); Lymphocytes # 0.7 10^3/uL (0.8-4.8); Lymphocytes % 4.6 %; Mean Corpuscular HGB Conc 30.4 g/dL (30.0-36.0); Mean Corpuscular Hemoglobin 28.4 pg (28.0-34.0); Mean Corpuscular Volume 93.6 fl (80-94); Monocytes # 0.9 10^3/uL (0.2-0.9); Monocytes % 6.4 %; Neutrophils # 12.96 10^3/uL (1.8-7.7); Neutrophils % 87.9 %; Nucleated Red Blood Cells % 0 %; Platelet Count 252 10^3/cmm (130-400); Red Blood Count 3.59 10^6/uL (4.1-5.3); Red Cell Distribution Width 13.8 % (12.1-15.1); White Blood Count 14.7 10^3/uL (4.0-10.0)
[2022-01-04 05:57] LABS: Blood Urea Nitrogen 68 mg/dL (8-23); Calcium 8.9 mg/dL (8.5-10.5); Carbon Dioxide 30 mmol/L (22-29); Chloride 94 mmol/L (98-107); Glucose 227 mg/dL (65-115); Magnesium 3.3 mg/dL (1.7-2.3); Osmolality Calculated 305 mOsm/kg (285-295); Phosphorus 6.3 mg/dL (2.5-4.5); Sodium 134 mmol/L (136-145)
[2022-01-04 07:00] LABS: Glucose Point of Care 243 mg/dL (70-110)
[2022-01-04] MEDS: budesonide 0.5 mg/2 mL Neb 0.25 MG INHALATION (07:47)
[2022-01-04] MEDS: metoprolol tartrate 25 mg Tablet PO (08:51)
[2022-01-04] MEDS: insulin lispro 100 unit/1 mL SUBCUT (08:52)
[2022-01-04] MEDS: finasteride 5 mg Tablet PO (08:53)
[2022-01-04] MEDS: insulin glargine 100 units/1 mL 25 UNIT SUBCUT (08:54)
[2022-01-04] MEDS: bumetanide 1 mg Tablet PO (08:54)
[2022-01-04] MEDS: polyethylene glycol 3350 Pkt 17 gm PO (08:55)
[2022-01-04] MEDS: tamsulosin 0.4 mg Capsule PO (08:56)
--- NOTE | 2022-01-04 10:15 | P.DS_ITS ---
Discharge Providers Date of Admission: 01/03/22 00:49 Date of Discharge: January 04, 2022 Attending Provider at Admission: Scott Corrales Attending Provider at Discharge: Stephanie Bangura MD Primary Care Provider: Lucinda Rand MD Diagnoses at Discharge Discharge Diagnosis (1) Syncope: Status: Acute (2) CHF (congestive heart failure): Status: Acute (3) LIU (acute kidney injury): Status: Acute (4) Obstructive uropathy: Status: Acute (5) Pneumonia: Status: Acute (6) Hypoxia: Status: Acute (7) Troponin level elevated: Status: Acute (8) Pleural effusion, bilateral: Status: Acute (9) Constipation: Status: Acute Reason for Visit Reason for Visit: SOB Hospital Course Hospital Course 81-year-old male presented to the hospital after syncopal event. Echo unremarkable, VQ scan unremarkable. No signs of DVT. 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 Creatinine started improving with CBI it is 4.8 at discharge, it was 6.0 at the time of admission, he has remained hemodynamically stable. Good urine output, held lisinopril which she was taking at home along hydrochlorothiazide which could have contributed to LIU as well. Patient is willing to follow-up with Dr. Snow outpatient, his hematuria has improved with CBI. CBI was turned off on 01/03. Hemoglobin remained stable. He will need cystoscopy outpatient. I will also give him BMP to trend his creatinine. We will give him levofloxacin for UTI treatment. 2 L of urine output was recovered with placement of Cervantes catheter, his bladder function will take time to recover we will discharge him with the Cervantes catheter. I did present this case to Dr. Snow, he thinks it is okay to have him follow-up outpatient and keep the Cervantes catheter in for at least 2 to 3 weeks, tamsulosin has been added Physical Exam Narrative: Patient sitting comfortably at the bedside Currently on 2 L nasal cannula Awake and alert S1, S2 Abdomen soft Lower extremity 2+ pitting edema Awake and alert Nonfocal neuro exam Pleasant and cooperative Bilateral breath sound without rhonchi or crackles Urinary Catheter Management: Cervantes: Cath Placed During This Visit: yes, but has since been removed by the nurse Reason for Continuing Indwelling Catheter: Acute Urinary Retention or Obstruction Urinary Catheter Date of Insertion: 01/03/22 Urinary Catheter Time of Insertion: 00:25 Date Urinary Catheter Removed: 01/03/22 Time Urinary Catheter Discontinued: 05:09 Discharge Data Studies Completed and Pending Completed Studies During Hospitalization Category Date Time Status CT kidney stone [id number] Stat Cat Scan 01/02/22 23:44 Completed XR chest 1V portable [id number] Stat Exams 01/02/22 22:33 Completed NM pulmonary ventilation and perfusion [NM pul vent and Nuc Med 01/03/22 01:29 Completed perfus* [id number]] [place] [id number] Routine Ultrasound 01/03/22 01:11 Completed CV. echo complete* [id number] Routine Ultrasound 01/03/22 01:12 Completed Pending at discharge Category Date Time Status Basic Metabolic Panel AM LABS Lab 01/05/22 04:00 Ordered Basic Metabolic Panel AM LABS Lab 01/06/22 04:00 Ordered Complete Blood Count w/Auto AM LABS Lab 01/05/22 04:00 Ordered Complete Blood Count w/Auto AM LABS Lab 01/06/22 04:00 Ordered Magnesium AM LABS Lab 01/05/22 04:00 Ordered Magnesium AM LABS Lab 01/06/22 04:00 Ordered Phosphorus AM LABS Lab 01/05/22 04:00 Ordered Phosphorus AM LABS Lab 01/06/22 04:00 Ordered Radiology Impressions Chest X-Ray 01/02/22 22:33 IMPRESSION: 1. Small bilateral right greater than left pleural effusions which appears somewhat loculated on the right. 2. Patchy bilateral airspace infiltrates. 3. Calcified pleural plaques appear chronic. Abdomen/Pelvis CT 01/02/22 23:44 IMPRESSION: 1. Severe bilateral hydronephrosis and hydroureter with distention of the urinary bladder without focal obstructing lesion seen, findings may reflect urinary bladder outflow obstruction, however, an etiology is not forthcoming from this exam. 2. Diverticulosis without diverticulitis. 3. Constipation. 4. Bilateral hip arthroplasty changes. 5. Cardiomegaly. 6. Coronary artery atherosclerotic calcifications. 7. Bibasilar atelectasis versus infiltrate, dedicated chest CT could further evaluate this given a somewhat localized appearance of the airspace opacities. 8. Pleural calcifications. 9. Small right pleural effusion. Pulmonary Perfusion Imaging 01/03/22 01:29 IMPRESSION: 1. Indeterminate probability for pulmonary embolus. 2. This can be further evaluated with CTA PE study if renal function allows. Laboratory Results WBC 14.7 10^3/uL (4.0-10.0) H 01/04/22 04:22 RBC 3.59 10^6/uL (4.1-5.3) L 01/04/22 04:22 Hgb 10.2 g/dL (11.7-16.6) L 01/04/22 04:22 Hct 33.6 % (42.0-52.0) L 01/04/22 04:22 MCV 93.6 fl (80-94) 01/04/22 04:22 MCH 28.4 pg (28.0-34.0) 01/04/22 04: MCHC 30.4 g/dL (30.0-36.0) 01/04/22 04:22 RDW 13.8 % (12.1-15.1) 01/04/22 04:22 Plt Count 252 10^3/cmm (130-400) 01/04/22 04:22 MPV 11.0 fL (7.4-10.4) H 01/04/22 04:22 Neut % (Auto) 87.9 % 01/04/22 04:22 Lymph % (Auto) 4.6 % 01/04/22 04:22 [place] % (Auto) 6.4 % 01/04/22 04:22 Eos % (Auto) 0.2 % 01/04/22 04:22 Baso % (Auto) 0.2 % 01/04/22 04:22 Neut # (Auto) 12.96 10^3/uL (1.8-7.7) H 01/04/22 04:22 Lymph # (Auto) 0.7 10^3/uL (0.8-4.8) L 01/04/22 04:22 [place] # (Auto) 0.9 10^3/uL (0.2-0.9) 01/04/22 04:22 Eos # (Auto) 0.0 10^3/uL (0.0-0.8) 01/04/22 04:22 Baso # (Auto) 0.0 10^3/uL (0.0-0.1) 01/04/22 04:22 Nucleated RBC % (auto) 0 % 01/04/22 04:22 Nucleated RBCs # 0.0 /100WBC 01/04/22 04:22 D-Dimer 1.13 ug/mIFEU (0-0.59) H 01/02/22 22:50 Sodium 134 mmol/L (136-145) L 01/04/22 04:22 Potassium 4.0 mmol/L (3.5-5.1) 01/04/22 04:22 Chloride 94 mmol/L (98-107) L 01/04/22 04:22 Carbon Dioxide 30 mmol/L (22-29) H 01/04/22 04:22 Anion Gap 14.0 (5-19) 01/04/22 04:22 BUN 68 mg/dL (8-23) H 01/04/22 04:22 Creatinine 4.8 mg/dL (0.7-1.2) H 01/04/22 04:22 GFR Calculation Not Reportable 01/04/22 04:22 Glucose 227 mg/dL (65-115) H 01/04/22 04:22 POC Glucose 243 mg/dL (70-110) H 01/04/22 06:27 Calculated Osmolality 305 mOsm/kg (285-295) H 01/04/22 04:22 Calcium 8.9 mg/dL (8.5-10.5) 01/04/22 04:22 Phosphorus 6.3 mg/dL (2.5-4.5) H 01/04/22 04:22 Magnesium 3.3 mg/dL (1.7-2.3) H 01/04/22 04:22 Total Bilirubin 0.3 mg/dL (0.15-1.2) 01/02/22 22:50 AST 18 U/L (0-40) 01/02/22 22:50 ALT 11 U/L (0-41) 01/02/22 22:50 Alkaline Phosphatase 99 U/L (40-130) 01/02/22 22:50 Troponin T Baseline 68 ng/L (0-15) H 01/02/22 22:50 Troponin T 120 Minute 67.08 ng/L (0-15) H 01/03/22 00:42 Delta Troponin T -0.92 ABS# (0-10) L 01/03/22 00:42 Troponin T Hi Sens 6Hr 66.56 ng/L (0-15) H 01/03/22 04:45 Troponin T Hi Sens 6Hr Delta -1.44 ng/L (0-12) L 01/03/22 04:45 C-Reactive Protein 80.5 mg/L (0.0-4.9) H 01/02/22 22:50 NT-Pro-B Natriuret Pep 2302 pg/mL (0-450) H 01/02/22 22:50 Total Protein 6.9 g/dL (6.6-8.7) 01/02/22 22:50 Albumin 3.4 g/dL (3.5-5.2) L 01/02/22 22:50 Globulin 3.5 g/dL (1.3-4.6) 01/02/22 22:50 Procalcitonin 0.23 ng/mL (0-0.5) 01/02/22 22:50 TSH 1.55 uIU/mL (0.27-4.20) 01/03/22 04:45 Urine Color Colorless (Yellow) 01/03/22 01:20 Urine Appearance Clear (CLEAR) 01/03/22 01:20 Urine pH 8 (5-7) H 01/03/22 01:20 Ur Specific [place] 1.010 (1.005-1.030) 01/03/22 01:20 Urine Protein Neg (Negative) 01/03/22 01:20 Urine Glucose (UA) 1+ (Normal) H 01/03/22 01:20 Urine Ketones Negative (Negative) 01/03/22 01:20 Urine Blood 2+ (Negative) H 01/03/22 01:20 Urine Nitrate Negative (Negative) 01/03/22 01:20 Urine Bilirubin Neg (Negative) 01/03/22 01:20 Urine Urobilinogen Neg mg/dL (Negative) 01/03/22 01:20 Ur Leukocyte Esterase Negative (Negative) 01/03/22 01:20 Urine RBC 10-15 /hpf (0-2) H 01/03/22 01:20 Urine WBC 0-4 /hpf (0-5) H 01/03/22 01:20 Ur Squamous Epith Cells None /hpf (0-5) 01/03/22 01:20 Amorphous Sediment Not Reportable 01/03/22 01:20 Urine Bacteria None /hpf (NONE) 01/03/22 01:20 Ur Random Urea Nitrogn 104 mg/dL 01/03/22 01:20 Urine Creatinine 13 mg/dL (39-259) L 01/03/22 01:20 Nasal Influ A H1 2008 PCR Not detected (NOT DETECT) 01/03/22 00:43 Adenovirus (PCR) Not detected (NOT DETECT) 01/03/22 00:43 C. pneumoniae DNA (PCR) Not detected (NOT DETECT) 01/03/22 00:43 Coronavirus 229E (PCR) Not detected (NOT DETECT) 01/03/22 00:43 Human Metapneumovir PCR Not detected (NOT DETECT) 01/03/22 00:43 Influenza A (H1) PCR Not detected (NOT DETECT) 01/03/22 00:43 Influenza A (H3) PCR Not detected (NOT DETECT) 01/03/22 00:43 Influenza Type A (PCR) Not detected (NOT DETECT) 01/03/22 00:43 Influenza Type B (PCR) Not detected (NOT DETECT) 01/03/22 00:43 M. pneumoniae (PCR) Not detected (NOT DETECT) 01/03/22 00:43 Parainfluenza 1 (PCR) Not detected (NOT DETECT) 01/03/22 00:43 Parainfluenza 2 (PCR) Not detected (NOT DETECT) 01/03/22 00:43 Parainfluenza 3 (PCR) Not detected (NOT DETECT) 01/03/22 00:43 Parainfluenza 4 (PCR) Not detected (NOT DETECT) 01/03/22 00:43 RSV Type A (PCR) Not detected (NOT DETECT) 01/03/22 00:43 RSV Type B (PCR) Not detected (NOT DETECT) 01/03/22 00:43 Entero/Rhino (PCR) Not detected (NOT DETECT) 01/03/22 00:43 SARS-CoV-2 (PCR) Not detected (NOT DETECT) 01/03/22 00:43 Vitals Last Vital Signs Temp 97.7 F 01/04/22 04:00 Pulse 63 01/04/22 08:00 Resp 18 01/04/22 08:00 BP 135/72 01/04/22 08:00 Pulse Ox 98 01/04/22 08:00 O2 Del Method 01/04/22 07:49 O2 Flow Rate 4 01/04/22 07:49 Discharge Plan Discharge Patient Disposition: Home Condition: Fair Prescriptions: New tamsulosin 0.4 mg Capsule 0.4 mg PO DAILY Qty: 60 2RF levofloxacin 500 mg Tablet 500 mg PO Q48H Qty: 5 0RF metoprolol tartrate 25 mg Tablet 25 mg PO BID@0900,2100 Qty: 60 1RF bumetanide 1 mg Tablet 1 mg PO DAILY Qty: 60 2RF Continued (DME) pen needle, diabetic [Lite Touch Insulin Pen [place]] 31 gauge x 5/16 needle See Rx Instructions .ROUTE .MEDSUPPLY Qty: 100 5RF Rx Instructions: As directed albuterol sulfate [ProAir HFA] 90 mcg/actuation HFA aerosol inhaler 2 puff INHALATION QID Qty: 8.5 5RF promethazine-DM 6.25-15 mg/5 mL syrup 5 ml PO Q6H PRN (Reason: cough) Qty: 160 0RF tramadol 50 mg tablet 50 mg PO Q8H Qty: 90 0RF amlodipine 10 mg tablet 10 mg PO DAILY gabapentin 300 mg capsule 300 mg PO BID omeprazole 20 mg capsule,delayed release(DR/EC) 20 mg PO BID finasteride 5 mg tablet 5 mg PO DAILY Symbicort 160-4.5 mcg/actuation HFA aerosol inhaler 2 puff inhalation BID Lantus Solostar U-100 Insulin 100 unit/mL (3 mL) insulin pen 25 unit SUBCUT QAM Discontinued fosinopril 40 mg tablet 40 mg PO DAILY hydrochlorothiazide 25 mg tablet 25 mg PO DAILY Discharge Orders: Discharge Order (Routine); Ordered 01/04/22 Ordered By: Stephanie Bangura Other Ambulatory Orders: Basic Metabolic Panel (Routine) Timeframe: 20220107 Facility: [facility] - Location: Lab - Main Lab Ordered By: Stephanie Bangura MCT/Event Monitor 14 Days (Routine) Timeframe: 2 Weeks Facility: [facility] - Location: Radiology Ordered By: Stephanie Bangura Referrals: Brian Snow MD [Physician] - 1 week (DR SNOW OFFICE WILL CALL WITH APPOINTMENT) Lucinda Rand MD [Primary Care Provider] - 01/11/22 2:00 pm Discharge Diet: Cardiac Discharge Activity: Increase activity as tolerated Patient Instructions: Opioid Safety Activity Restrictions/Additional Instructions: APPOINTMENT FOR HEART MONITOR [facility] ON MondayJANUARY 05 AT 12:45 Discharge Attestations Time Spent in Discharge Care*: less than 30 min Quality Metrics Clinical Quality Measures [ No reported AMI, CVA or VTE this stay] Coding Level of Care Code Acute Chg FW DC note Diagnoses Syncope R55 CHF (congestive heart failure) I50.9 LIU (acute kidney injury) N17.9 Obstructive uropathy N13.9 Pneumonia J18.9 Hypoxia R09.02 Troponin level elevated R77.8 Pleural effusion, bilateral J90 Constipation K59.00
[2022-01-04 11:32] LABS: Glucose Point of Care 216 mg/dL (70-110)
== END 2022-01-04 11:55 | disposition home or self-care (01) | DRG 725 ==
LOC: ER 22:49 → MEDSURG 01-03 00:49
PROVIDERS: Emergency Medicine; Admitting Provider Internal Medicine; Emergency Provider Nurse Practitioner Family; PCP Family Medicine; Visit Provider Internal Medicine
DX: N40.1 Benign prostatic hyperplasia with lower urinary tract symptoms (principal); J18.9 Pneumonia, unspecified organism; N13.8 Other obstructive and reflux uropathy; N13.39 Other hydronephrosis; N02.9 Recurrent and persistent hematuria with unspecified morphologic changes; I50.32 Chronic diastolic (congestive) heart failure; N17.9 Acute kidney failure, unspecified; E11.9 Type 2 diabetes mellitus without complications; J44.9 Chronic obstructive pulmonary disease, unspecified; K21.9 Gastro-esophageal reflux disease without esophagitis; E78.5 Hyperlipidemia, unspecified; I11.0 Hypertensive heart disease with heart failure; M10.9 Gout, unspecified; Z86.74 Personal history of sudden cardiac arrest; Z96.643 Presence of artificial hip joint, bilateral; Z99.81 Dependence on supplemental oxygen; K57.90 Diverticulosis of intestine, part unspecified, without perforation or abscess without bleeding; K59.00 Constipation, unspecified; Z79.891 Long term (current) use of opiate analgesic; Z79.51 Long term (current) use of inhaled steroids; Z79.4 Long term (current) use of insulin; R77.8 Other specified abnormalities of plasma proteins
CPT/HCPCS: 36415; 36416; 51702; 71045; 74176; 78014; 80048; 80053; 81001; 82570; 82962; 83735; 83880; 84100; 84145; 84443; 84484; 84540; 85025; 85378; 86140; 87486; 87581; 87633; 93005; 93306; 93970; 94640; 96372; 99285; A9540; A9567; J1644; J1815; J7626

== ENCOUNTER → 2022-01-17 15:45 | Outpatient (BNVA) | payer MEDICARE, SELFPAY | PROVIDERS: PCP Family Medicine; Visit Provider Family Medicine | DX: Z09 Encounter for follow-up examination after completed treatment for conditions other than malignant neoplasm (principal); N17.9 Acute kidney failure, unspecified | CPT/HCPCS: 80048 ==

== ENCOUNTER → 2022-01-26 13:24 | Outpatient (BNVA) | payer MEDICARE, SELFPAY | PROVIDERS: PCP Family Medicine; Visit Provider Urology | DX: N40.1 Benign prostatic hyperplasia with lower urinary tract symptoms (principal); R33.9 Retention of urine, unspecified; N17.9 Acute kidney failure, unspecified; E11.9 Type 2 diabetes mellitus without complications; J61 Pneumoconiosis due to asbestos and other mineral fibers; N13.30 Unspecified hydronephrosis | CPT/HCPCS: 52000; 99204 ==

== ENCOUNTER → 2022-03-15 14:14 | Outpatient (BNVA) | payer MEDICARE, SELFPAY | PROVIDERS: PCP Family Medicine; Visit Provider Urology | DX: N40.1 Benign prostatic hyperplasia with lower urinary tract symptoms (principal); N13.30 Unspecified hydronephrosis; R33.9 Retention of urine, unspecified; N17.9 Acute kidney failure, unspecified; E11.9 Type 2 diabetes mellitus without complications; J61 Pneumoconiosis due to asbestos and other mineral fibers | CPT/HCPCS: 51798; 99213 ==

== ENCOUNTER → 2022-03-31 10:39 | Outpatient (BNVA) | payer MEDICARE, SELFPAY | PROVIDERS: PCP Family Medicine; Visit Provider Family Medicine | DX: I10 Essential (primary) hypertension (principal) | CPT/HCPCS: 80048 ==

== ENCOUNTER → 2022-05-05 14:47 | Outpatient (BNVA) | payer MEDICARE, SELFPAY | PROVIDERS: PCP Family Medicine; Visit Provider Internal Medicine Cardiovascular Disease | DX: R55 Syncope and collapse (principal); I13.0 Hypertensive heart and chronic kidney disease with heart failure and stage 1 through stage 4 chronic kidney disease, or unspecified chronic kidney disease; E11.22 Type 2 diabetes mellitus with diabetic chronic kidney disease; N18.9 Chronic kidney disease, unspecified; I50.9 Heart failure, unspecified; Z79.4 Long term (current) use of insulin; E78.2 Mixed hyperlipidemia; Z86.74 Personal history of sudden cardiac arrest | CPT/HCPCS: 99214 ==

== ENCOUNTER → 2022-05-20 10:00 | Outpatient (BNVA) | payer MEDICARE, SELFPAY | PROVIDERS: PCP Family Medicine; Visit Provider Family Medicine | DX: E11.9 Type 2 diabetes mellitus without complications (principal); E78.2 Mixed hyperlipidemia; I10 Essential (primary) hypertension; J44.9 Chronic obstructive pulmonary disease, unspecified; K21.9 Gastro-esophageal reflux disease without esophagitis | CPT/HCPCS: 80053; 80061; 84443; 85025 ==

== ENCOUNTER → 2022-06-14 08:46 | Outpatient (BNVA) | payer MEDICARE, SELFPAY | PROVIDERS: PCP Family Medicine; Visit Provider Urology | DX: N13.30 Unspecified hydronephrosis (principal); N40.1 Benign prostatic hyperplasia with lower urinary tract symptoms; R33.9 Retention of urine, unspecified; E11.9 Type 2 diabetes mellitus without complications | CPT/HCPCS: 51798; 99213 ==

== ENCOUNTER 2022-06-17 12:30 | Emergency (ER) | payer MEDICARE, SELFPAY ==
[2022-06-17 12:33] VITALS: BP 176/79; PULSE 81; RESP 24; TEMP 36.6; O2SAT 91; BMI 27.3
--- NOTE | 2022-06-17 12:45 | XR_ITS ---
WS: [id number] Exam: XR chest 1V portable [id number] Date/Time of Exam: 06/17/2022 12:51 PM Reason For Exam: dyspnea/cough Comparison 01/03/2022. No acute infiltrates are noted. Again noted are areas of chronic pulmonary parenchymal scarring and c alcified pleural plaque formation bilaterally. Calcified pleural plaques along both diaphragms as wel l as the mediastinum. Heart size is normal. The superior mediastinum is normal in contour. Metal frag ments overlie the left chest and may represent shrapnel. Bilateral pleural thickening. Severe DJD of the left shoulder. Moderate DJD of the right glenohumeral joint. XR/XR chest 1V portable [id number] IMPRESSION: 1. No acute infiltrates are noted. 2. Calcified pleural plaques noted bilaterally as discussed above. This may be secondary to asbestos-related lung disease. Pleural thickening, pulmonary paren chymal scarring and mediastinal calcified pleural plaques.
--- NOTE | 2022-06-17 12:45 | ECG_ITS ---
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 Measurements Intervals Seanor Rate: 77 P: 0 GA: 138 QRS: -26 QRSD: 105 T: 0 QT: 331 QTc: 375 Interpretive Statements SINUS RHYTHM POSSIBLE LEFT ATRIAL ENLARGEMENT [-0.1mV P-WAVE IN V1/V2] BORDERLINE LEFT AXIS DEVIATION [QRS AXIS < -20] NONSPECIFIC ST & T-WAVE ABNORMALITY Compared to ECG 01/03/2022 03:26:49 T-wave abnormality now present Electronically Signed On 06-18-2022 16:32:22 CDT by Burke Xavier M.D. [email or web address]
[2022-06-17 12:52] VITALS: BP 150/83; PULSE 84; RESP 16; O2SAT 94
[2022-06-17 13:02] VITALS: BP 150/83; PULSE 75; RESP 16; O2SAT 96
--- NOTE | 2022-06-17 13:18 | ED_ITS ---
HPI - SOB/Dyspnea General: Chief Complaint: Shortness of Breath/Dyspnea Stated Complaint: extremities swelling Time Seen by Provider: 06/17/22 12:44 Source: patient Mode of arrival: ambulatory History of Present Illness: HPI Narrative: 82-year-old male presents emergency room complaining of increasing shortness of breath for the last 4 days. He also normally self caths. He has a history of some kidney disease as well. He denies any fever sweats chills has a scant productive cough. Denies chest pain. MD elicited complaint: shortness of breath and cough Onset (ago): week(s) Timing: intermittent Severity: moderate Exacerbating factors: nothing Relieving factors: nothing Associated symptoms: Reports chest congestion and cough; Deny abdominal pain, chest pain, diaphoresis, dizziness, extremity pain, fever(s), hemoptysis, lightheadedness, myalgias, nausea, orthopnea, palpitations, paresthesias, polydipsia, polyuria, rash, sense of impending doom, syncope or vomiting Treatment prior to arrival: none Review of Systems Const: Denies: fever(s), chills, fatigue, malaise or diaphoresis ENMT: Denies: throat pain, ear or mastoid pain, nasal discharge or nasal congestion Card: Reports: edema and swelling of feet/ankles; Denies: chest pain, palpitations, lightheadedness, syncope or orthopnea Resp: Reports: chest congestion; Denies: hemoptysis GI: Denies: abdominal pain, nausea or vomiting : Denies: flank pain, dysuria, urinary frequency or urinary urgency Musc: Denies: extremity pain Skin/Breast: Denies: rash or pruritus Neuro: Denies: dizziness Endo: Denies: polyuria or polydipsia PFS ED PFSH: Medical History Acute renal failure LIU (acute kidney injury) Asbestosis BPH loc w urin obs/LUTS CHF (congestive heart failure) Chronic retention of urine Constipation COPD (chronic obstructive pulmonary disease) DDD (degenerative disc disease) Diabetes GERD (gastroesophageal reflux disease) Gout History of sudden cardiac arrest successfully resuscitated Hyperlipidemia Hypertension Hypoxia Lower obstructive uropathy Pleural effusion, bilateral Pneumonia Syncope Troponin level elevated Surgical History History of hip replacement Hx of bilateral cataract extraction Hx of non-cataract eye surgery Family History Mother , AT AGE 84 CAD (coronary artery disease) Brother Diabetes Lung disease Sister Diabetes Father , AT AGE 78 Lung disease CHF (congestive heart failure) Denies family history of Clotting disorder Dementia Chronic kidney disease (CKD) Suicide Anesthesia complication Bleeding disorder Cancer Stroke Social History Smoking and tobacco status: never smoked Alcohol intake: never Substance/Drug Use: never Marital status: Current occupational status: retired Physical Exam Const: GENERAL APPEARANCE: cooperative and comfortable ORIENTATION/CONSCIOUSNESS: Yes awake, Yes oriented to person, Yes oriented to place and Yes oriented to time HENMT: COMMON NORMALS: normocephalic, atraumatic and hearing grossly normal bilaterally HEAD & SCALP: normocephalic and atraumatic Resp: COMMON NORMALS: normal respiratory effort, No retractions, No use of accessory muscles and clear to auscultation bilaterally AUSCULTATION: clear t o auscultation bilaterally Cardio: COMMON NORMALS: regular rate, regular rhythm and No murmurs present (Cardio) RATE: regular rate RHYTHM: regular rhythm GI: COMMON NORMALS: Soft to palpation and No hepatosplenomegaly present AUSCULTATION: Yes normoactive bowel sounds PALPATION: Yes Soft to palpation, No Tenderness to palpation present (GI), No Guarding due to palpation present (GI) and Yes No hepatosplenomegaly present Extremity: GENERAL: Yes edema Neuro: SENSORIUM/ORIENTATION: Yes oriented to person, Yes oriented to place and Yes oriented to time Skin: COMMON NORMALS: no rashes or lesions noted GENERAL SKIN EXAM: no rashes or lesions noted Course Vital Signs: Vital signs: Vital Signs Temperature 97.9 F 06/17/22 12:33 Pulse Rate 74 06/17/22 15:28 Respiratory Rate 16 06/17/22 15:28 Blood Pressure 127/75 06/17/22 15:28 Pulse Oximetry 94 06/17/22 15:28 Oxygen Delivery Me thod Nasal Cannula 06/17/22 15:28 Oxygen Flow Rate 2 06/17/22 15:28 MDM - SOB/Dyspnea Medical Decision Making Chest x-ray shows chronic changes from his asbestos exposure. He is having a little bit of a productive cough. He also has a cystitis. Urine semiclosed. Started on Cipro 500 twice daily he is satting in the mid 90s on his usual 2 L by nasal cannula continue his regular medications use the albuterol regularly as needed and follow-up with his primary care doctor in a week. Return to the emergency room any further problems. EKGs cardiac enzymes reviewed no acute changes no evidence of pulmonary emboli pneumothorax aortic dissection. Medical Records I reviewed the patient's medical records. Lab Data I reviewed the patient's lab results. 06/17/22 13:05 06/17/22 13:05 Labs/Radiology: Radiology Impressions Chest X-Ray 06/17/22 12:45 IMPRESSION: 1. No acute infiltrates are noted. 2. Calcified pleural plaques noted bilaterally as discussed above. This may be secondary to asbestos-related lung disease. Pleural thickening, pulmonary parenchymal scarring and mediastinal calcified pleural plaques. Laboratory Results WBC 8.7 10^3/uL (4.0-10.0) 06/17/22 13:05 RBC 4.92 10^6/uL (4.1-5.3) 06/17/22 13:05 Hgb 12.5 g/dL (11.7-16.6) 06/17/22 13:05 Hct 41.1 % (42.0-52.0) L 06/17/22 13:05 MCV 83.5 fl (80-94) 06/17/22 13:05 MCH 25.4 pg (28.0-34.0) L 06/17/22 13:05 MCHC 30.4 g/dL (30.0-36.0) 06/17/22 13:05 RDW 14.0 % (12.1-15.1) 06/17/22 13:05 Plt Count 293 10^3/cmm (130-400) 06/17/22 13:05 MPV 10.9 fL (7.4-10.4) H 06/17/22 13:05 Neut % (Auto) 72.6 % 06/17/22 13:05 Lymph % (Auto) 18.8 % 06/17/22 13:05 [place] % (Auto) 5.3 % 06/17/22 13:05 Eos % (Auto) 2.5 % 06/17/22 13:05 Baso % (Auto) 0.5 % 06/17/22 13:05 Neut # (Auto) 6.32 10^3/uL (1.8-7.7) 06/17/22 13:05 Lymph # (Auto) 1.6 10^3/uL (0.8-4.8) 06/17/22 13:05 [place] # (Auto) 0.5 10^3/uL (0.2-0.9) 06/17/22 13:05 Eos # (Auto) 0.2 10^3/uL (0.0-0.8) 06/17/22 13:05 Baso # (Auto) 0.0 10^3/uL (0.0-0.1) 06/17/22 13:05 Nucleated RBC % (auto) 0 % 06/17/22 13:05 Nucleated RBCs # 0.0 /100WBC 06/17/22 13:05 Sodium 138 mmol/L (136-145) 06/17/22 13:05 Potassium 4.1 mmol/L (3.5-5.1) 06/17/22 13:05 Chloride 97 mmol/L (98-107) L 06/17/22 13:05 Carbon Dioxide 30 mmol/L (22-29) H 06/17/22 13:05 Anion Gap 15.1 (5-19) 06/17/22 13:05 BUN 22 mg/dL (8-23) 06/17/22 13:05 Creatinine 1.0 mg/dL (0.7-1.2) 06/17/22 13:05 GFR Calculation Not Reportable 06/17/22 13:05 Glucose 108 mg/dL (65-115) 06/17/22 13:05 Calculated Osmolality 290 mOsm/kg (285-295) 06/17/22 13:05 Calcium 9.5 mg/dL (8.5-10.5) 06/17/22 13:05 Total Bilirubin 0.3 mg/dL (0.15-1.2) 06/17/22 13:05 AST 17 U/L (0-40) 06/17/22 13:05 ALT 10 U/L (0-41) 06/17/22 13:05 Alkaline Phosphatase 93 U/L (40-130) 06/17/22 13:05 Troponin T Baseline 29 ng/L (0-15) H 06/17/22 13:05 Troponin T 120 Minute 29.33 ng/L (0-15) H 06/17/22 15:09 Delta Troponin T 0.33 ABS# (0-10) 06/17/22 15:09 NT-Pro-B Natriuret Pep 213 pg/mL (0-450) 06/17/22 13:05 Total Protein 7.8 g/dL (6.6-8.7) 06/17/22 13:05 Albumin 4.0 g/dL (3.5-5.2) 06/17/22 13:05 Globulin 3.8 g/dL (1.3-4.6) 06/17/22 13:05 Urine Color Light yellow (Yellow) 06/17/22 15:07 Urine Appearance Sl cloudy (CLEAR) A 06/17/22 15:07 Urine pH 7 (5-7) 06/17/22 15:07 Ur Specific [place] 1.005 (1.005-1.030) 06/17/22 15:07 Urine Protein Neg (Negative) 06/17/22 15:07 Urine Glucose (UA) Norm (Normal) 06/17/22 15:07 Urine Ketones Negative (Negative) 06/17/22 15:07 Urine Blood 2+ (Negative) H 06/17/22 15:07 Urine Nitrate Negative (Negative) 06/17/22 15:07 Urine Bilirubin Neg (Negative) 06/17/22 15:07 Urine Urobilinogen Norm mg/dL (Negative) 06/17/22 15:07 Ur Leukocyte Esterase 2+ (Negative) H 06/17/22 15:07 Urine RBC 10-15 /hpf (0-2) H 06/17/22 15:07 Urine WBC >100 /hpf (0-5) H 06/17/22 15:07 Ur Squamous Epith Cells 0-4 /hpf (0-5) H 06/17/22 15:07 Amorphous Sediment Not Reportable 06/17/22 15:07 Urine Bacteria Trace /hpf (NONE) 06/17/22 15:07 Discharge Plan Discharge Patient Disposition: Home Clinical Impression: Acute exacerbation of chronic obstructive airways disease, Cystitis Condition: Stable Prescriptions: New Cipro 500 mg tablet 500 mg PO BID Qty: 14 0RF No Action (DME) pen needle, diabetic [TRUEplus Pen Needle] 31 gauge x 5/16 needle See Rx Instructions .ROUTE .COMPLEX Qty: 100 5RF Dose Instruction: USE DIRECTED Rx Instructions: USE ONE DAILY TO INJECT INSULIN omeprazole 20 mg capsule,delayed release(DR/EC) 20 mg PO BID Qty: 60 5RF tramadol 50 mg tablet 50 mg PO Q8H Qty: 90 0RF amlodipine 10 mg tablet 10 mg PO QAM gabapentin 300 mg capsule 300 mg PO BID insulin glargine [Lantus Solostar U-100 Insulin] 100 unit/mL (3 mL) insulin pen 22 unit SUBCUT QAM bumetanide 2 mg tablet 1 mg PO QAM Aspir-81 81 mg Tablet,Delayed Release (Dr/Ec) 81 mg PO QAM Breo Ellipta 100-25 mcg/dose blister with device 1 inh INHALATION QAM tamsulosin 0.4 mg capsule 0.4 mg PO BID losartan 25 mg tablet 25 mg PO QAM ProAir HFA 90 mcg/actuation HFA aerosol inhaler 2 puff INHALATION QID PRN (Reason: Shortness Of Breath) finasteride 5 mg tablet 5 mg PO QAM metoprolol tartrate 25 mg tablet 25 mg PO BID Discharge Orders: Discharge ED (Routine); Ordered 06/17/22 Ordered By: Hay Carrera Referrals: Lucinda Rand MD [Primary Care Provider] - Discharge Diet: Usual diet Discharge Activity: Increase activity as tolerated Patient Instructions: Opioid Safety, Pain Management Activity Restrictions/Additional Instructions: You were seen today for exacerbation of your COPD as well as an incidental finding of cystitis. Recommend to start Cipro 500 p.o. twice daily for 7 days. Continue inhaled medications [id number] as needed albuterol. If you have any worsening or change symptoms return to the emergency room. Do recommend that you follow-up with your primary care doctor in 7 to 10 days. Coding Level of Care Code ED [employer] Worker for [employer]
[2022-06-17 13:25] LABS: Basophils % 0.5 %; Eosinophils # 0.2 10^3/uL (0.0-0.8); Eosinophils % 2.5 %; Hematocrit 41.1 % (42.0-52.0); Hemoglobin 12.5 g/dL (11.7-16.6); Lymphocytes # 1.6 10^3/uL (0.8-4.8); Lymphocytes % 18.8 %; Mean Corpuscular HGB Conc 30.4 g/dL (30.0-36.0); Mean Corpuscular Hemoglobin 25.4 pg (28.0-34.0); Mean Corpuscular Volume 83.5 fl (80-94); Mean Platelet Volume 10.9 fL (7.4-10.4); Monocytes # 0.5 10^3/uL (0.2-0.9); Monocytes % 5.3 %; Neutrophils # 6.32 10^3/uL (1.8-7.7); Neutrophils % 72.6 %; Nucleated Red Blood Cells % 0 %; Platelet Count 293 10^3/cmm (130-400); Red Blood Count 4.92 10^6/uL (4.1-5.3); White Blood Count 8.7 10^3/uL (4.0-10.0)
[2022-06-17] MEDS: FUROsemide 10 mg/mL SDV 4mL 40 MG IVP (13:43)
[2022-06-17 13:47] LABS: Troponin(5th) Baseline 29 ng/L (0-15)
[2022-06-17 13:53] LABS: Alanine Aminotransferase 10 U/L (0-41); Alkaline Phosphatase 93 U/L (40-130); Anion Gap 15.1 (5-19); Aspartate Amino Transferase 17 U/L (0-40); Blood Urea Nitrogen 22 mg/dL (8-23); Calcium 9.5 mg/dL (8.5-10.5); Carbon Dioxide 30 mmol/L (22-29); Chloride 97 mmol/L (98-107); Creatinine Clr Calc Pharmacy 61.4157; Globulin 3.8 g/dL (1.3-4.6); Glucose 108 mg/dL (65-115); NT Pro B Type Natriuretic Pept 213 pg/mL (0-450); Osmolality Calculated 290 mOsm/kg (285-295); Potassium 4.1 mmol/L (3.5-5.1); Sodium 138 mmol/L (136-145); Total Bilirubin 0.3 mg/dL (0.15-1.2); Total Protein 7.8 g/dL (6.6-8.7)
--- NOTE | 2022-06-17 14:59 | ECG_ITS ---
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 Measurements Intervals [place] Rate: 75 P: 30 OR: 152 QRS: -14 QRSD: 105 T: 11 QT: 371 QTc: 416 Interpretive Statements SINUS RHYTHM VOLTAGE CRITERIA FOR LVH [MEETS CRITERIA IN ONE OF: R(aVL), S(V1), R(V5), R(V5/V6)+S(V1)] Compared to ECG 06/17/2022 12:45:22 Left ventricular hypertrophy now present T-wave abnormality no longer present Electronically Signed On 06-18-2022 16:53:50 CDT by Burke Xavier M.D. [id number]
[2022-06-17 15:28] VITALS: BP 127/75; PULSE 74; RESP 16; O2SAT 94
[2022-06-17 15:52] LABS: Troponin 5 2HR 29.33 ng/L (0-15)
[2022-06-17 15:54] LABS: Troponin 5 2HR Delta 0.33 ABS# (0-10)
[2022-06-17 16:05] LABS: Add Urine Microscopic? YES; Bilirubin Urine Neg (Negative); Blood Urine 2+ (Negative); Glucose Urine UA Norm (Normal); Ketones Urine Negative (Negative); Leukocyte Esterase Urine 2+ (Negative); Nitrate Urine Negative (Negative); Protein Urine Neg (Negative); Specific Gravity, Urine 1.005 (1.005-1.030); Urine Color Light yellow (Yellow); Urobilinogen Urine Norm (Negative); pH Urine 7 (5-7)
[2022-06-17 16:06] LABS: Add Urine Culture? Yes; Bacteria Urine TRACE /hpf; Squamous Epithelial Cell Urine 0-4 /hpf (0-5); WBC Urine >100 /hpf (0-5)
[2022-06-17 16:33] VITALS: BP 137/77; PULSE 74; RESP 16; O2SAT 93
== END 2022-06-17 16:37 | disposition home or self-care (01) ==
PROVIDERS: Emergency Provider Family Medicine; PCP Family Medicine
DX: J44.1 Chronic obstructive pulmonary disease with (acute) exacerbation (principal); N30.90 Cystitis, unspecified without hematuria; I10 Essential (primary) hypertension
CPT/HCPCS: 36415; 71045; 80053; 81001; 83880; 84484; 85025; 87077; 87086; 87186; 93005; 96374; 99285; J1940

== ENCOUNTER → 2022-11-29 09:14 | Outpatient (BNVA) | payer MEDICARE, SELFPAY | PROVIDERS: PCP Family Medicine; Visit Provider Family Medicine | DX: I10 Essential (primary) hypertension (principal); M10.9 Gout, unspecified; E78.5 Hyperlipidemia, unspecified; E11.9 Type 2 diabetes mellitus without complications; Z12.5 Encounter for screening for malignant neoplasm of prostate; N40.1 Benign prostatic hyperplasia with lower urinary tract symptoms; N39.9 Disorder of urinary system, unspecified | CPT/HCPCS: 80053; 80061; 81003; 83036; 84550; 85025; 87086; G0103 ==

== ENCOUNTER → 2023-02-02 17:54 | Outpatient (BNVA) | payer MEDICARE, SELFPAY | PROVIDERS: PCP Family Medicine; Visit Provider Family Medicine | DX: Z23 Encounter for immunization; N39.0 Urinary tract infection, site not specified | CPT/HCPCS: 81003; 87086 ==

== ENCOUNTER → 2023-03-10 11:24 | Outpatient (BNVA) | payer MEDICARE, SELFPAY | PROVIDERS: PCP Family Medicine; Visit Provider Family Medicine | DX: R06.02 Shortness of breath (principal) | CPT/HCPCS: 71046 ==

== ENCOUNTER → 2023-05-05 08:25 | Outpatient (BNVA) | payer MEDICARE, SELFPAY | PROVIDERS: PCP Family Medicine; Visit Provider Family Medicine | DX: R07.0 Pain in throat (principal); R50.9 Fever, unspecified; J10.1 Influenza due to other identified influenza virus with other respiratory manifestations | CPT/HCPCS: 87071; 87400; 87880 ==

== ENCOUNTER → 2023-05-17 15:22 | Outpatient (BNVA) | payer MEDICARE, SELFPAY | PROVIDERS: PCP Family Medicine; Visit Provider Family Medicine | DX: R07.0 Pain in throat (principal); R05.9 Cough, unspecified | CPT/HCPCS: 87071; 87400; 87880 ==

== ENCOUNTER → 2023-08-18 09:48 | Outpatient (BNVA) | payer MEDICARE, SELFPAY | PROVIDERS: PCP Family Medicine; Visit Provider Family Medicine | DX: E11.9 Type 2 diabetes mellitus without complications (principal); Z12.5 Encounter for screening for malignant neoplasm of prostate | CPT/HCPCS: 80053; 80061; 83036; 84443; 84550; 85025; G0103 ==

== ENCOUNTER → 2024-01-09 10:58 | Outpatient (BNVA) | payer MEDICARE, SELFPAY | PROVIDERS: PCP Nurse Practitioner Family; Visit Provider Nurse Practitioner Family | DX: E11.9 Type 2 diabetes mellitus without complications (principal); M10.9 Gout, unspecified | CPT/HCPCS: 80053; 80061; 82607; 83036; 84443; 84550; 85025 ==

== ENCOUNTER → 2024-01-10 11:07 | Outpatient (BNVA) | payer MEDICARE, SELFPAY | PROVIDERS: PCP Nurse Practitioner Family; Visit Provider Internal Medicine Cardiovascular Disease | DX: I10 Essential (primary) hypertension (principal); R06.02 Shortness of breath; R07.9 Chest pain, unspecified | CPT/HCPCS: 36415; 80048; 80307; 81003; 83880; 93005; 99214 ==

== ENCOUNTER → 2024-04-15 13:25 | Outpatient (BNVA) | payer MEDICARE, SELFPAY | PROVIDERS: PCP Nurse Practitioner Family; Visit Provider Nurse Practitioner Family | DX: N39.0 Urinary tract infection, site not specified (principal); N13.9 Obstructive and reflux uropathy, unspecified; J92.9 Pleural plaque without asbestos; J18.9 Pneumonia, unspecified organism; R05.9 Cough, unspecified | CPT/HCPCS: 71046; 81000; 81003; 87077; 87086 ==

== ENCOUNTER → 2024-04-19 08:56 | Outpatient (BNVA) | payer MEDICARE, SELFPAY | PROVIDERS: PCP Nurse Practitioner Family; Visit Provider Nurse Practitioner Family | DX: J18.9 Pneumonia, unspecified organism (principal) | CPT/HCPCS: 71046 ==

== ENCOUNTER 2024-05-18 12:29 | Inpatient (IN) | payer MEDICARE, SELFPAY ==
[2024-05-18] VITALS (15 sets, daily range): BP systolic 93–142; BP diastolic 57–74; PULSE 72–101; RESP 16–20; TEMP 37–37.3; O2SAT 88–96; BMI 26.6
--- NOTE | 2024-05-18 13:03 | XR_ITS ---
WS: [id number] XR chest 1V portable [id number] REASON FOR EXAM: Shortness of breath FINDINGS: The chest is essentially unchanged compared to 04/19/2024. Moderate tortuosity and ectasia of the thoracic aorta. Mild cardiomegaly. Mild central pulmonary vascular congestion. Extensive calcified and noncalcified plaque compatible with asbestosis. Known asbestos exposure. Chronic blunting of the costophrenic angles and thickening of the minor fissures. Moderate hyperinflation. Chronic interstitial lung opacities in both lower lung rodríguez. Moderate degenerative spondylosis in the thoracic spine. Severe osteoarthritis both shoulders. NOTE: Previous CT scan 05/18/2024 demonstrates a masslike calcified plaque of the posterior right pleura which has enlarged significantly since a previous CT chest examination of 03/07/2016, without interval examination. Possibly this represents progressive chronic reactive plaque formation of asbestosis however mesothelioma would need consideration. XR/XR chest 1V portable [id number] IMPRESSION: Multiple chronic changes as above. No acute chest abnormality.
--- NOTE | 2024-05-18 13:03 | ECG_ITS ---
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
--- NOTE | 2024-05-18 13:11 | W.ED.SOB ---
HPI - SOB/Dyspnea General: Chief Complaint: Shortness of Breath/Dyspnea Stated Complaint: trouble breathing Time Seen by Provider: 05/18/24 13:00 History of Present Illness: HPI Narrative: 84-year-old man with a history of BPH, chronic hypoxemic respiratory failure on 2 to 3 L nasal cannula at all times, COPD/asbestosis, diabetes, hyperlipidemia, hypertension and congestive heart failure who presents to the emergency room with worsening shortness of breath. He was treated for pneumonia and has completed antibiotics. He was on Augmentin. Family says he is just continued to get worse. He is had increased oxygen requirements requiring at least 3 L at all times. He has worsening exertional dyspnea. He still had a cough. He is somewhat tachypneic and dyspneic on exam. His O2 sats are 88% on his home 2 L. No altered mental status. No focal motor deficits. No chest pain. No abdominal pain. No nausea or vomiting. No known recent fevers. Related Data Home Medications ?Medication ?Instructions ?Recorded ?Confirmed aspirin 81 mg tablet,delayed 81 mg PO QAM 06/17/22 05/18/24 release fluticasone furoate 100 1 inh inhalation QAM 06/17/22 05/18/24 mcg-vilanterol 25 mcg/dose inhalation powder (Breo Ellipta) albuterol sulfate 90 mcg/actuation 2 puff inhalation QID PRN 05/18/24 05/18/24 aerosol inhaler Shortness Of Breath amlodipine 10 mg tablet 10 mg PO DAILY 05/18/24 05/18/24 bumetanide 1 mg tablet 1 mg PO QAM 05/18/24 05/18/24 gabapentin 300 mg capsule 300 mg PO BID 05/18/24 05/18/24 insulin glargine 100 unit/mL (3 20 unit SUBCUT QAM 05/18/24 05/18/24 mL) subcutaneous pen (Lantus Solostar U-100 Insulin) omeprazole 20 mg capsule,delayed 20 mg PO BID 05/18/24 05/18/24 release tamsulosin 0.4 mg capsule 0.4 mg PO DAILY 05/18/24 05/18/24 Previous Rx's ?Medication ?Instructions ?Recorded pen needle, diabetic 31 gauge x #100 ea 06/23/2307/05 (TRUEplus Pen Needle) oxygen at 3L #1 ea 07/24/23 Bard 14 [place] urological catheter #1 ea 08/18/23 finasteride 5 mg tablet 5 mg PO QAM #90 tabs 01/09/24 metoprolol tartrate 25 mg tablet 25 mg PO BID #180 tabs 01/09/24 losartan 25 mg tablet 25 mg PO QAM #90 tabs 03/22/24 tramadol 50 mg tablet 50 mg PO BID #60 tabs 04/15/24 fluticasone propionate 50 2 spray intranasal DAILY #16 grams 04/19/24 mcg/actuation nasal spray,suspension (Flonase Allergy Relief) Allergies Allergy/AdvReac Type Severity Reaction Status Date / Time metformin Allergy ADR-Diarrhe Verified 01/10/24 10:23 a Review of Systems Narrative: Constitutional symptoms: Negative except as documented in HPI. Skin symptoms: Negative except as documented in HPI. Eye symptoms: Negative except as documented in HPI. ENMT symptoms: Negative except as documented in HPI. Respiratory symptoms: Negative except as documented in HPI. Cardiovascular symptoms: Negative except as documented in HPI. Gastrointestinal symptoms: Negative except as documented in HPI. Genitourinary symptoms: Negative except as documented in HPI. Musculoskeletal symptoms: Negative except as documented in HPI. Neurologic symptoms: Negative except as documented in HPI. Psychiatric symptoms: Negative except as documented in HPI. Endocrine symptoms: Negative except as documented in HPI. [facility] ED PFSH: Medical History Pneumonia Chronic retention of urine BPH loc w urin obs/LUTS Lower obstructive uropathy Acute renal failure Constipation Pleural effusion, bilateral Troponin level elevated Hypoxia LIU (acute kidney injury) CHF (congestive heart failure) Syncope Asbestosis History of sudden cardiac arrest successfully resuscitated COPD (chronic obstructive pulmonary disease) DDD (degenerative disc disease) GERD (gastroesophageal reflux disease) Diabetes Hyperlipidemia Gout Hypertension Surgical History Hx of bilateral cataract extraction Hx of non-cataract eye surgery History of hip replacement Family History Mother , AT AGE 84 CAD (coronary artery disease) Brother Diabetes Lung disease Sister Diabetes Father , AT AGE 78 Lung disease Congestive heart failure (CHF) Denies family history of Clotting disorder Dementia Chronic kidney disease (CKD) Suicide Anesthesia complication Bleeding disorder Cancer Stroke Social History Smoking and tobacco/nicotine status: never used tobacco/nicotine Alcohol intake: never Substance/Drug Use: never Marital status: Current occupational status: retired Physical Exam Narrative: EXAM NARRATIVE: General: Alert, no acute distress. Skin: Warm, dry. Head: Normocephalic, atraumatic. Neck: Supple, trachea midline. Eye: Extraocular movements are intact. Ears, nose, mouth and throat: mucosa moist. Cardiovascular: Regular, Normal peripheral perfusion. Respiratory: Coarse lung sounds, tachypnea, mild increased work of breathing. This was after brief exertion just getting from wheelchair to the bed. Gastrointestinal: Soft, Nontender, Non distended Musculoskeletal: Normal ROM, no deformity. Neurological: Alert and oriented, No focal neurological deficit observed. Psychiatric: Cooperative, appropriate mood & affect. Course Vital Signs: Vital signs: Vital Signs Temperature 98.9 F 05/18/24 12:58 Pulse Rate 101 H 05/18/24 14:31 Respiratory Rate 20 H 05/18/24 14:31 Blood Pressure 142/64 05/18/24 14:31 Pulse Oximetry 92 05/18/24 14:31 Oxygen Delivery Me thod Nasal Cannula 05/18/24 14:31 Oxygen Flow Rate 3 05/18/24 14:31 MDM - SOB/Dyspnea Medical Decision Making Differential diagnosis for patient with shortness of breath includes but is not limited to and based on the above HPI, review of systems and physical exam: Pneumonia. Bronchitis. Asthma or COPD with acute exacerbation. Acute coronary syndrome / [place]. Pulmonary embolism. Anxiety. Congestive heart failure. Viral infections including influenza and Covid-19. Atrial fibrillation. Anxiety. Pleural effusion. Pneumothorax. Orders placed to evaluate differential diagnosis based on the above differential, HPI and physical exam Chest x-ray: Patient has changing chronic infiltrates. Today seems to have a different infiltrate with bilateral lateral densities. Films were interpreted by myself the emergency room provider and pending final radiology review. Lab Review: Laboratory results were reviewed and interpreted by myself the emergency room physician. Mild leukocytosis. Mild worsening of anemia with a hemoglobin of 7.3. Transfusing today. Patient is symptomatic. No renal failure. Flu COVID and RSV are negative. Liver enzymes are normal. Lactic acid is 1.5. I reviewed the patient's medical record. Most recent echo was in 2021. EF 69%. Mild diastolic failure. history of BPH, chronic hypoxemic respiratory failure on 2 to 3 L nasal cannula at all times, COPD/asbestosis, diabetes, hyperlipidemia, hypertension and congestive heart failure Reexamination: Patient continues to require more oxygen than his baseline. O2 sats are in the upper 80s and low 90s at rest on 3 to 4 L nasal cannula. No altered mental status. Consultation: I spoke with Dr. Rodriguez who agrees to admission. Assessment and plan: Pneumonia Acute on chronic hypoxemic respiratory failure COPD exacerbation History of congestive heart failure Anemia ?Transfusing 1 unit PRBCs at this time. Patient is just above the transfusion threshold but is symptomatic. ? IV Solu-Medrol. ? IV meropenem and Zyvox. Failed outpatient therapy. Broad-spectrum antibiotics which likely can be de-escalated. He will receive 50 mL of saline with this so he is receiving some fluids. I am holding on any further fluids because he has some edema and a history of heart failure. Also his lactate is negative. His white count is likely due to recent steroids. Blood culture. Lactate. Were ordered. -I discussed the patient with the hospitalist on-call who is admitting the patient. - Discussed findings and plan with patient. Answered any questions. - All laboratory values were reviewed and interpreted personally by myself, the ER physician - All imaging was reviewed and interpreted personally by myself, the ER physician. - Evaluation and treatment of this problem were appropriate in the emergency setting Critical care -I spent a total of >35 minutes of critical care time managing the patient, independent of any other practitioner. -The time involved in the performance of separately reportable procedures was not counted towards critical care time. Lab Data 05/18/24 13:33 05/18/24 13:33 Labs/Radiology: Laboratory Results WBC 12.31 10^3/uL (3.29-11.43) H 05/18/24 13:33 RBC 4.08 10^6/uL (3.85-5.65) 05/18/24 13:33 Hgb 7.30 g/dL (11.27-16.99) L 05/18/24 13:33 Hct 28.1 % (37-53) L 05/18/24 13:33 MCV 68.9 fl (82-101) L 05/18/24 13:33 MCH 17.9 pg (27-33) L 05/18/24 13:33 MCHC 26.0 g/dL (30-55) L 05/18/24 13:33 RDW 17.8 % (12.1-15.1) H 05/18/24 13:33 Plt Count 322 10^3/cmm (157-399) 05/18/24 13:33 MPV 9.6 fL (7.4-10.4) 05/18/24 13:33 Neut % (Auto) 80.5 % 05/18/24 13:33 Lymph % (Auto) 11.8 % 05/18/24 13:33 Grainger % (Auto) 6.6 % 05/18/24 13:33 Eos % (Auto) 0.5 % 05/18/24 13:33 Baso % (Auto) 0.2 % 05/18/24 13:33 Neut # (Auto) 9.92 10^3/uL (1.8-7.7) H 05/18/24 13:33 Lymph # (Auto) 1.5 10^3/uL (0.8-4.8) 05/18/24 13:33 Grainger # (Auto) 0.8 10^3/uL (0.2-0.9) 05/18/24 13:33 Eos # (Auto) 0.1 10^3/uL (0.0-0.8) 05/18/24 13:33 Baso # (Auto) 0.0 10^3/uL (0.0-0.1) 05/18/24 13:33 Nucleated RBC % (auto) 0 % 05/18/24 13:33 Nucleated RBCs # 0.0 /100WBC 05/18/24 13:33 Specimen Type Arterial 05/18/24 13:06 Sample Site Radial, right 05/18/24 13:06 ABG pH 7.45 (7.35-7.45) 05/18/24 13:06 ABG pCO2 53.4 mmHg (35-45) H 05/18/24 13:06 ABG pO2 53.7 mmHg (80.0-100.0) L 05/18/24 13:06 ABG HCO3 36.9 mmol/L (22-26) H 05/18/24 13:06 ABG O2 Saturation 88.5 05/18/24 13:06 ABG Base Excess 11.6 mmol/L (-2.0-2.0) H 05/18/24 13:06 Rodolfo Test Pos 05/18/24 13:06 A-a O2 Gradient 4.0 mmHg (5-10) L 05/18/24 13:06 Hematocrit 22.9 % (42-52) L 05/18/24 13:06 Hgb O2 Saturation 86.1 % (95-100) L 05/18/24 13:06 Carboxyhemoglobin 2.3 %THgb (0.4-20.1) 05/18/24 13:06 Methemoglobin 0.4 % (0.4-1.5) 05/18/24 13:06 Total Hemoglobin 7.5 g/dL (14-18) L 05/18/24 13:06 Sodium 140.0 mmol/L (131-143) 05/18/24 13:06 Potassium 3.8 mmol/L (3.5-5.0) 05/18/24 13:06 Glucose 116.0 mg/dL (70-115) H 05/18/24 13:06 Ionized Calcium 1.2 mmol/L (1.1-1.4) 05/18/24 13:06 O2 Delivery Device Nc 05/18/24 13:06 O2 Liters/Min 3.0 % 05/18/24 13:06 Can Line Examiner ID Walci 05/18/24 13:06 Sodium 138 mmol/L (136-145) 05/18/24 13:33 Potassium 4.0 mmol/L (3.5-5.1) 05/18/24 13:33 Chloride 97 mmol/L (98-107) L 05/18/24 13:33 Carbon Dioxide 33 mmol/L (22-29) H 05/18/24 13:33 Anion Gap 12.0 (5-19) 05/18/24 13:33 BUN 13 mg/dL (8-23) 05/18/24 13:33 Creatinine 0.9 mg/dL (0.7-1.2) 05/18/24 13:33 GFR Calculation Not Reportable 05/18/24 13:33 Glucose 110 mg/dL (65-115) 05/18/24 13:33 Calculated Osmolality 287 mOsm/kg (285-295) 05/18/24 13:33 Lactic Acid 1.5 mmol/L (0.5-2.2) 05/18/24 13:33 Calcium 8.8 mg/dL (8.5-10.5) 05/18/24 13:33 Total Bilirubin 0.4 mg/dL (0.15-1.2) 05/18/24 13:33 AST 14 U/L (0-40) 05/18/24 13:33 ALT 6 U/L (0-41) 05/18/24 13:33 Alkaline Phosphatase 114 U/L (40-130) 05/18/24 13:33 C-Reactive Protein 39.1 mg/L (0.0-4.9) H 05/18/24 13:33 NT-Pro-B Natriuret Pep 403 pg/mL (0-450) 05/18/24 13:33 Total Protein 7.1 g/dL (6.6-8.7) 05/18/24 13:33 Albumin 3.3 g/dL (3.5-5.2) L 05/18/24 13:33 Globulin 3.8 g/dL (1.3-4.6) 05/18/24 13:33 Procalcitonin 0.06 ng/mL (0-0.5) 05/18/24 13:33 XR interpretation done by ED provider, pending radiology final review Discharge Plan Discharge Patient Disposition: Admitted As Inpatient Clinical Impression: Pneumonia, Acute on chronic hypoxic respiratory failure, COPD with acute exacerbation, Anemia Condition: Stable Coding Level of Care Code ED [facility]
[2024-05-18 13:17] LABS: ABG PCO2 53.4 mmHg (35-45); ABG PH Result 7.45 (7.35-7.45); Arterial Blood Gas Hematocrit 22.9 % (42-52); Base Excess ABG 11.6 mmol/L (-2.0-2.0); Blood Gas Allen Test Pos; Blood Gas Operator Identificat WALCI; Blood Gas Sample Site Radial, right; Blood Gas Sample Type Arterial; Carboxyhemoglobin 2.3 %THgb (0.4-20.1); HCO3 ABG 36.9 mmol/L (22-26); HGB O2 Sat 86.1 % (95-100); Ionized Calcium Level - ABG 1.2 mmol/L (1.1-1.4); Methemoglobin 0.4 % (0.4-1.5); Oxygen Device NC; Oxygen Saturation ABG 88.5; PO2 ABG 53.7 mmHg (80.0-100.0); Potassium Level - ABG 3.8 mmol/L (3.5-5.0); Total Hemoglobin 7.5 g/dL (14-18)
[2024-05-18] MEDS: ipratropium-albuterol 3 mL Neb INHALATION (13:22)
[2024-05-18 13:41] LABS: Basophils % 0.2 %; Eosinophils # 0.1 10^3/uL (0.0-0.8); Eosinophils % 0.5 %; Hematocrit 28.1 % (37-53); Lymphocytes # 1.5 10^3/uL (0.8-4.8); Lymphocytes % 11.8 %; Mean Corpuscular Hemoglobin 17.9 pg (27-33); Mean Corpuscular Volume 68.9 fl (82-101); Mean Platelet Volume 9.6 fL (7.4-10.4); Monocytes # 0.8 10^3/uL (0.2-0.9); Monocytes % 6.6 %; Neutrophils # 9.92 10^3/uL (1.8-7.7); Neutrophils % 80.5 %; Nucleated Red Blood Cells % 0 %; Platelet Count 322 10^3/cmm (157-399); Red Blood Count 4.08 10^6/uL (3.85-5.65); Red Cell Distribution Width 17.8 % (12.1-15.1); White Blood Count 12.31 10^3/uL (3.29-11.43)
[2024-05-18] MEDS: methylPREDNISolone sod succ 125 mg/2 mL INJ IVP ×2 (13:53→15:05)
[2024-05-18 14:04] LABS: Lactic Sepsis W/Reflex 1.5 mmol/L (0.5-2.2)
[2024-05-18 14:15] LABS: NT Pro B Type Natriuretic Pept 403 pg/mL (0-450); Procalcitonin 0.06 ng/mL (0-0.5)
[2024-05-18 14:26] LABS: Alanine Aminotransferase 6 U/L (0-41); Albumin Level 3.3 g/dL (3.5-5.2); Alkaline Phosphatase 114 U/L (40-130); Aspartate Amino Transferase 14 U/L (0-40); Blood Urea Nitrogen 13 mg/dL (8-23); C Reactive Protein 39.1 mg/L (0.0-4.9); Calcium 8.8 mg/dL (8.5-10.5); Carbon Dioxide 33 mmol/L (22-29); Chloride 97 mmol/L (98-107); Globulin 3.8 g/dL (1.3-4.6); Glucose 110 mg/dL (65-115); Osmolality Calculated 287 mOsm/kg (285-295); Sodium 138 mmol/L (136-145); Total Bilirubin 0.4 mg/dL (0.15-1.2); Total Protein 7.1 g/dL (6.6-8.7)
[2024-05-18 14:49] LABS: Influenza A NEGATIVE (Negative); Influenza B NEGATIVE (Negative); Respiratory Syncytial Virus Ce NEGATIVE (Negative); SARS-CoV-2 PCR NEGATIVE (Negative)
[2024-05-18] MEDS: meropenem 500 mg SDV IVP (15:05)
[2024-05-18] MEDS: linezolid premix 600 MG/300 ML PREMIX 300 MG IV (15:05)
--- NOTE | 2024-05-18 16:12 | PM.HP ---
Providers/Chief Complaint Admitting Physician: Laurent Rodriguez DO Primary Care Provider: KINZA Perla Chief Complaint: trouble breathing History of Present Illness Darin Bhardwaj is a 84 year old male with a history of BPH, chronic hypoxemic respiratory failure on 2 to 3 L nasal cannula at all times, COPD/asbestosis, diabetes, hyperlipidemia, hypertension and congestive heart failure who presents to the emergency room with worsening shortness of breath. He was treated for pneumonia from his PCP, which consisted of Augmentin and Azithromycin. States that he did not have improvement with antibiotics and family says he continue to worsen. He is had increased oxygen requirements requiring at least 3 L at all times. He generally just wears his oxygen at night. He has worsening exertional dyspnea. Reports that he has had increased respiratory effort and has been coughing up some thick white and yellow sputum. Reports that he had prostate surgery in the last couple of months. Reports that his O2 sats have been in the 80's% on his home 2 L. In the ER, chest x-ray was obtained which showed multiple areas of scarring with possible consolidation. Review of Systems General: Reports: 10 or more systems reviewed and unremarkable except in HPI and below Medications/Allergies Home Medications ?Medication ?Instructions ?Recorded ?Confirmed ?Last Taken ?Type aspirin 81 mg tablet,delayed 81 mg PO QAM 06/17/22 05/18/24 05/17/24 History release fluticasone furoate 100 1 inh inhalation QAM 06/17/22 05/18/24 05/17/24 History mcg-vilanterol 25 mcg/dose inhalation powder (Breo Ellipta) pen needle, diabetic 31 gauge x #100 ea 06/23/23 05/18/24 Unknown Rx 5/16 (TRUEplus Pen Needle) oxygen at 3L #1 ea 07/24/23 05/18/24 Unknown Rx Bard 14 [place] urological catheter #1 ea 08/18/23 05/18/24 Unknown Rx finasteride 5 mg tablet 5 mg PO QAM #90 tabs 01/09/24 05/18/24 05/17/24 Rx metoprolol tartrate 25 mg tablet 25 mg PO BID #180 tabs 01/09/24 05/18/24 05/17/24 Rx losartan 25 mg tablet 25 mg PO QAM #90 tabs 03/22/24 05/18/24 05/17/24 Rx tramadol 50 mg tablet 50 mg PO BID #60 tabs 04/15/24 05/18/24 05/17/24 Rx fluticasone propionate 50 2 spray intranasal DAILY #16 grams 04/19/24 05/18/24 05/17/24 Rx mcg/actuation nasal spray,suspension (Flonase Allergy Relief) albuterol sulfate 90 mcg/actuation 2 puff inhalation QID PRN 05/18/24 05/18/24 Unknown History aerosol inhaler Shortness Of Breath amlodipine 10 mg tablet 10 mg PO DAILY 05/18/24 05/18/24 05/17/24 History bumetanide 1 mg tablet 1 mg PO QAM 05/18/24 05/18/24 05/17/24 History gabapentin 300 mg capsule 300 mg PO BID 05/18/24 05/18/24 05/17/24 History insulin glargine 100 unit/mL (3 20 unit SUBCUT QAM 05/18/24 05/18/24 05/17/24 History mL) subcutaneous pen (Lantus Solostar U-100 Insulin) omeprazole 20 mg capsule,delayed 20 mg PO BID 05/18/24 05/18/24 05/17/24 History release tamsulosin 0.4 mg capsule 0.4 mg PO DAILY 05/18/24 05/18/24 05/17/24 History Allergies Allergy/AdvReac Type Severity Reaction Status Date / Time metformin Allergy ADR-Diarrhe Verified 01/10/24 10:23 a PFSH Acute PFSH: Medical History Pneumonia Chronic retention of urine BPH loc w urin obs/LUTS Lower obstructive uropathy Acute renal failure Constipation Pleural effusion, bilateral Troponin level elevated Hypoxia LIU (acute kidney injury) CHF (congestive heart failure) Syncope Asbestosis History of sudden cardiac arrest successfully resuscitated COPD (chronic obstructive pulmonary disease) DDD (degenerative disc disease) GERD (gastroesophageal reflux disease) Diabetes Hyperlipidemia Gout Hypertension Surgical History Hx of bilateral cataract extraction Hx of non-cataract eye surgery History of hip replacement Family History Mother , AT AGE 84 CAD (coronary artery disease) Brother Diabetes Lung disease Sister Diabetes Father , AT AGE 78 Lung disease Congestive heart failure (CHF) Denies family history of Clotting disorder Dementia Chronic kidney disease (CKD) Suicide Anesthesia complication Bleeding disorder Cancer Stroke Social History Smoking and tobacco/nicotine status: never used tobacco/nicotine Alcohol intake: never Substance/Drug Use: never Marital status: Current occupational status: retired Vitals/I&O/Wt Last Vital Signs Temp 98.9 F 05/18/24 12:58 Pulse 101 H 05/18/24 14:31 Resp 20 H 05/18/24 14:31 BP 142/64 05/18/24 14:31 Pulse Ox 92 05/18/24 14:31 O2 Del Method Nasal Cannula 05/18/24 14:31 O2 Flow Rate 3 05/18/24 14:31 05/18/24 05/18/24 05/18/24 06:59 14:59 22:59 Intake Total 0 / 0 Balance 0 / 0 Weight last 48 hrs Weight 175 lb Physical Exam Narrative: General: Cooperative patient in no apparent distress. Patient in respiratory distress with mild activity. HEENT: Normocephalic, Atraumatic. External ears normal. Nasal passages patent without drainage. MMM. Heart: RRR. Resp: There are widespread crackles, rhonchi, and occasional wheezes. Abd: Soft, non-tender. Non-distended. Extremities: He is very weak and unstable when standing. Skin: No rash or lesions on exposed areas. Data 05/18/24 13:33 05/18/24 13:33 Micro: Microbiology 05/18/24 13:53 Blood Culture - Preliminary Blood SPECIMEN COLLECTED 05/18/24 13:55 Blood Culture - Preliminary Blood SPECIMEN COLLECTED A&P Assessment and plan (1) Pneumonia: Qualifiers: Pneumonia type: due to unspecified organism Laterality: bilateral Lung location: unspecified part of lung Qualified Code(s): J18.9 - Pneumonia, unspecified organism (2) COPD (chronic obstructive pulmonary disease): Qualifiers: COPD type: unspecified COPD Qualified Code(s): J44.9 - Chronic obstructive pulmonary disease, unspecified (3) COPD with acute exacerbation: (4) Acute on chronic hypoxic respiratory failure: (5) Diabetes: Qualifiers: Diabetes mellitus type: type 2 Diabetes mellitus [facility] insulin use: without [facility] use Diabetes mellitus complication status: without complication Qualified Code(s): E11.9 - Type 2 diabetes mellitus without complications (6) Hypertension: Qualifiers: Hypertension type: essential hypertension Qualified Code(s): I10 - Essential (primary) hypertension (7) Leg swelling: Plan 84-year-old male admitted for pneumonia, respiratory distress and hypoxia. Will admit for monitoring and treatment. Received Zosyn and meropenem in the ER. He had 1 dose of each. Chest x-ray shows possible consolidation multiple areas of scarring, as well as right lobectomy. Will send him for a CT to better evaluate underlying causes. He was treated for pneumonia by his PCP. He did not have improvement with treatment. Will have respiratory evaluate and treat. He is on oxygen protocol. He is hypoxic and above his baseline oxygen requirement. Labs showed elevated WBCs to 12.3. Renal function appears okay. CRP was 39.1. He did have a negative procalcitonin. Recheck labs in the a.m. Will start steroids twice daily for now. Consider diuresis if no improvement with current treatment. He has had an echo a few years ago that showed a normal ejection fraction, and only a 1 out of 6 diastolic dysfunction. We will consider repeating that during this stay if necessary. Lovenox for VTE prophylaxis. Protonix for GI prophylaxis. PDMP PDMP Reviewed: Not Reviewed Attestations Medical Necessity Statement*: Patient will require greater than 2 midnight stay for treatment of pneumonia including lab evaluation, CT scan, lab recheck and monitoring, physical therapy, and IV antibiotics. Coding Level of Care Code Acute Code for Chg Fwd Moderate MDM includes number and complexity of problems actively addressed during encounter and amount and/or complexity of data reviewed/ordered as documented Diagnoses Pneumonia of both lungs due to infectious organism, unspecified part of lung J18.9 Pneumonia type: due to unspecified organism Laterality: bilateral Lung location: unspecified part of lung Chronic obstructive pulmonary disease, unspecified COPD type J44.9 COPD type: unspecified COPD COPD with acute exacerbation J44.1 Acute on chronic hypoxic respiratory failure J96.21 Type 2 diabetes mellitus without complication, without long-term current use of insulin E11.9 Diabetes mellitus type: type 2 Diabetes mellitus [facility] insulin use: without assistant terminal manager use Diabetes mellitus complication status: without complication Essential hypertension I10 Hypertension type: essential hypertension Leg swelling M79.89
[2024-05-18] MEDS: sodium chloride 0.9% 100 mL Bag 50 ML IV (16:42)
--- NOTE | 2024-05-18 17:19 | CTR_ITS ---
PROCEDURE INFORMATION: Exam: CT Chest Without Contrast; Diagnostic Exam date and time: 05/18/2024 9:31 PM Age: 84 years old Clinical indication: Cough and shortness of breath; Productive cough with SOB. History of copd and asbestosis. ; Additional info: Diminished lung sounds, recent lung surgery TECHNIQUE: Imaging protocol: Diagnostic computed tomography of the chest without contrast. Radiation optimization: All CT scans at this facility use at least one of these dose optimization techniques: automated exposure control; mA and/or kV adjustment per patient size (includes targeted exams where dose is matched to clinical indication); or iterative reconstruction. COMPARISON: CR XR chest 1V portable [id number] 05/18/2024 1:04 PM RADIATION DOSE METRICS: Total DLP (mGy-cm): 918.46 FINDINGS: Lungs: Bilateral interstitial opacities most consistent with asbestosis related discoid fibrosis. Pleural spaces: Bilateral pleural calcifications most consistent with asbestosis exposure. Prominent 6.1 x 7.8 x 4.3 cm partially calcified soft tissue thickening/mass in the right posterior pleural space which may be asbestosis related fibrosis although neoplasm is not ruled out. Heart: Unremarkable. No cardiomegaly. No pericardial effusion. Lymph nodes: Unremarkable. No enlarged lymph nodes. Vasculature: Unremarkable. No aortic aneurysm. Bones/joints: Severe bilateral primary glenohumeral osteoarthritis. Soft tissues: Examination is limited by artifact from one or both arms by the patient's side in the region of the upper abdomen. CT/CT chest wo con [id number] IMPRESSION: 1. Bilateral pleural calcifications most consistent with asbestosis exposure. 2. Prominent 6.1 x 7.8 x 4.3 cm partially calcified soft tissue thickening/mass in the right posterior pleural space which may be asbestosis related fibrosis although neoplasm is not ruled out. 3. 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
--- OUTSIDE RECORDS SUMMARY | 2024-05-18 17:49 | XMS_ITS ---
Author Organization [facility] Address [address] [address] [address] [place] [address] Care Team Providers Care Shoulder Joiner Name Role Phone Carlota Gutierrezila Primary Care Provider GARRETT Barksdale Unavailable [phone] Allergies No Known Allergies REASON FOR VISIT 4 wks postop Medications Medication SIG (Take, Route, Frequency, Duration) Notes Start Date End Date Status Finasteride 5 MG 1 tablet Orally Once a day Active Bumetanide 2 MG 1 tablet Orally Once a day Active Ciprofloxacin HCl 500 MG 1 tablet Orally every 12 hrs for 3 days 11/23/2023 Not-Taking amLODIPine Besylate 10 MG 1 tablet Orall y Once a day Active Tamsulosin HCl 0.4 MG 1 capsule Orally O nce a day Active Losartan Potassium 25 MG 1 tablet Orally Once a day Active Omeprazole 20 MG 1 capsule 30 minutes before morning meal Orally Once a day Active Metoprolol Tartrate 25 MG 1 tablet with food Orally Twice a day Active Gabapentin 300 MG 1 capsule Orally Onc e a day Active Aspirin 81 81 MG 1 tablet Orally Once a day Active Social History Tobacco Use: Social History Observation Description Date Details (start date - stop date) Never Smoker NA - NA Tobacco Control (Standard) Question Answer Notes Tobacco use: Nonsmoker Vital Signs Blood pressure systolic 125 mm Hg 03/04/19 25 Blood pressure diastolic 87 mm Hg 025 Heart Rate 72 /min 03/04/2024 Height 68.5 in 03/04/2024 Weight 175 lbs 03/04/2024 BMI 26.22 kg/m2 03/04/2024 Height-cm 173.99 cm 03/04/2024 Weight-kg 79.38 kg 03/04/2024 Procedures Procedure Date Ordered Date Performed Result Body Sit e Bladder Scan 03/04/2024 03/04/2024 PVR 395ml Encounters Encounter Location Date Provider Diagnosis [facility] [address] [place] [address] 03/04/2024 GARRETT BUNCH Incomplete emptying of bladder R33.9 ; History of urinary retention Z87.898 and Benign prostatic hyperplasia with lower urinary tract symptoms N40.1 Assessments Encounter Date Diagnosis (ICD Code) Assessment Notes Treatment Notes Treatment Clinical Notes Section Notes 03/04/2024 Incomplete emptying of bladder (ICD-10 - R33.9) 83 YO M w BPH/LUTS on MMM with Flomax and finasteride. History of LIU and AUR. He underwent optilume BPH on 01/30/24. IPSS 12. QoL 5. PVR 395cc. Doing well postoperativel y. He will return in 3m with UA,PVR,IPSS and see Tatiana Deluca APRN. Return sooner with any concern. Plan: -RTC in 3m with UA,PVR and IPSS and see Tatiana Deluca APRN I, Stormy Kapelski, Scribe, am scribing for, and in the presence of, Dr. Bunch. I, Dr. Garrett Bunch, personally performed the services prescribed in this documentation, as scribed by Alyssa Red, in my presence, and it is both accurate and complete. 03/04/2024 History of urinary retention (ICD-10 - Z87.898) 83 YO M w BPH/LUTS on MMM with Flomax and finasteride. History of LIU and AUR. He underwent optilume BPH on 01/30/24. IPSS 12. QoL 5. PVR 395cc. Doing well postoperativel y. He will return in 3m with UA,PVR,IPSS and see Tatiana Deluca APRN. Return sooner with any concern. Plan: -RTC in 3m with UA,PVR and IPSS and see Tatiana Deluca APRN I, Stormy Kapelski, Scribe, am scribing for, and in the presence of, Dr. Bunch. Dr. Garrett Modi, personally performed the services prescribed in this documentation, as scribed by Alyssa Red, in my presence, and it is both accurate and complete. 03/04/2024 Benign prostatic hyperplasia with lower urinary tract symptoms (ICD-10 - N40.1) 83 YO M w BPH/LUTS on MMM with Flomax and finasteride. History of LIU and AUR. He underwent optilume BPH on 01/30/24. IPSS 12. QoL 5. PVR 395cc. Doing well postoperativel y. He will return in 3m with UA,PVR,IPSS and see Tatiana Deluca APRN. Return sooner with any concern. Plan: -RTC in with UA,PVR and IPSS and see Tatiana Deluca APRN I, Stormy Kapelski, Scribe, am scribing for, and in the presence of, Dr. Bunch. I, Dr. Garrett Bunch, personally performed the services prescribed in this documentation, as scribed by Alyssa Red, in my presence, and it is both accurate and complete. Plan Of Treatment Next Appt Details Follow Up: 3 Months, Reason: Provider Name:TATIANA RIVERA, 06/03/2024 09:00:00 AM, [address] [place], [address], Progress Notes * Darin BACA GDOB: 3 (83 yo M)Acc No.[id number]:03/04/2024 Patient:?Darin BACA Grupo Provider:?GARRETT BUNCH MD :1940???Age:83 Y???Sex:Male Gerry e:03/04/2024 Address:[address] [place], [place] [phone] Pcp:Kelly Gutierrez Subjective: * Chief Complaints: * ???1. 4 wks postop. * HPI: ???Migrated HPI:? Pt is a 83 y/o M w BPH/LUTSm who was former pt of Dr Castaneda with difficulty urinating /unable to empty. Pt was on CIC regimen at night. On Finasteride and Tamsulosin. Pt has DM II. H/o PSA w Dr. Castaneda were all WNL. Pt has h/o LIU/elevated CR of 6, then 4.8, after indwelling Cervantes placement x several weeks creatinine down to 1.[address] Castaneda records. PVR IVETH of >700ml. Previous IPSS 20. Pt feels like voids adequately. Started CIC 3 daily along with continuing Finasteride and Flomax. Cysto on 11/23/23shows trilobar long obstructing prostate. His followup IPSS score increased [id number] QOL6. Unable to void for uroflow at last visit with a PVR 144cc. He underwent Optilume BPH on 01/30/24. Here today for 4 week post op with UA,PVR and IPSS 12 QOL 5. Doing well post op. Pain and hematuria has resolved. Notes weak stream still. LUTS have improved some. * ROS:?General / Constitutional Patient denies chills, fever, change in appetite. Gastrointestinal Patient denies abdominal pain, nausea, vomiting, diarrhea. Genitourinary Comments See HPI for details. * Medical History:?BPH w/ LUTS , Bronchitis, Hypertension, Back trouble, Diabetes, Recurrent bladder infections, Incomplete emptying of bladder. * Surgical History:?bilateral hip replacement , Optilume . * Hospitalization/Major Diagno stic Procedure:?see sx hx . * Family History:?Father: dece ased, COPD.?Mother: , Heart issues.? * Social History:?Tobacco Use:?Tobacco Control (Standard)?Tobacco use:?Nonsmoker.? * Medications:?Taking Aspirin 81 81 MG Tablet Delayed Release 1 tablet Orally Once a day , Taking Metoprolol Tartrate 25 MG Tablet 1 tablet with food Orally Twice a day , Taking Gabapentin 300 MG Capsule 1 capsule Orally Once a day , Taking Losartan Potassium 25 MG Tablet 1 tablet Orally Once a day , Taking Omeprazole 20 MG Capsule Delayed Release 1 capsule 30 minutes before morning meal Orally Once a day , Taking Finasteride 5 MG Tablet 1 tablet Orally Once a day , Taking amLODIPine Besylate 10 MG Tablet 1 tablet Orally Once a day , Taking Tamsulosin HCl 0.4 MG Capsule 1 capsule Orally Once a day , Taking Bumetanide 2 MG Tablet 1 tablet Orally Once a day , Not-Taking Ciprofloxacin HCl 500 MG Tablet 1 tablet Orally every 12 hrs , Medication List reviewed and reconciled with the patient * Allergies:?N.K.D.A. Objective: * Vitals:?BP: 125/87 mm Hg, HR : 72 /min, Wt: 175 lbs, Wt-k.38 kg, Ht: 68.5 in, Ht-cm: 173.99 cm, BMI: 26.22 Index, Body Surface Area: 1.96. * Examination: ???General Examination: ?General appearance:?alert, pleasant, well-nourished and in no acute distress.?Chest:?resp even and nonlabored.?Abdomen:?soft, NT, ND.?Male genitourinary:?no CVAT, No SPT, no bladder distention, genital exam deferred.? Assessment: * Assessment: 1.?Benign prostatic hyperpla mukesh with lower urinary tract symptoms - N40.1 (Primary)???2.?Incomplete emptying of bladder - R33.9???3.?History of urinary retention - Z87.898??? 83 YO M w BPH/LUTS on MMM wi th Flomax and finasteride. History of LIU and AUR. He underwent optilume BPH on 01/30/24. IPSS 12. QoL 5. PVR 395cc. Doing well postoperatively.?He will return in 3m with UA,PVR,IPSS and see Tatiana Dleuca APRN. Return sooner with any concern. Plan: -RTC in 3m with UA,PVR and IPSS and see Tatiana Deluca APRN IAlyssa Scribe, am scribing for, and in the presence of, Dr. Bunch. I, Dr. Garrett Bunch, personally performed the services prescribed in this documentation, as scribed by Alyssa Red, in my presence, and it is both accurate and complete. Plan: * Treatment: * Procedure Codes:?55685 US UR INE CAPACITY MEASURE, G2211 Complex e/m visit add on * Follow Up:?3 Months * Billing Information: * Visit Code:? 41266 Office Visit, Est Pt., Level 3. * Procedure Codes:? 03459 US URINE CAPACITY MEASURE. G2211 Complex e/m visit add on. * INSPECTOR Sign off status: Completed true * Provider:?GARRETT BUNCH MD Date:?02/20 Generated for Isaiahi marcos/Debra/Rosalinditting on:?05/18/2024 05:49 PM CDT History and Physical Notes * HPI (History of Present Illness) Category Sub-Category Detail Notes Category Not es Migrated HPI Pt is a 83 y/o M w BPH/LUTSm who was former pt of Dr Castaneda with difficulty urinating /unable to empty. Pt was on CIC regimen at night. On Finasteride and Tamsulosin. Pt has DM II. H/o PSA w Dr. Castaneda were all WNL. Pt has h/o LIU/elevated CR of 6, then 4.8, after indwelling Cervantes placement x several weeks creatinine down to 1.[address] Castaneda records. PVR IVETH of >700ml. Previous IPSS 20. Pt feels like voids adequately. Started CIC 3 daily along with continuing Finasteride and Flomax. Cysto on 11/23/23 shows trilobar long obstructing prostate. His followup IPSS score increased to IPSS 25 QOL6. Unable to void for uroflow at last visit with a PVR 144cc. He underwent Optilume BPH on 01/30/24. Here today for 4 week post op with UA,PVR and IPSS 12 QOL 5. Doing well post op. Pain and hematuria has resolved. Notes weak stream still. LUTS have improved some. Examination Category Sub-Category Detail Notes Category Not es General Examination General appearance: alert, p leasant, well-nourished and in no acute distress Chest: resp even and nonlab ored Abdomen: soft, NT, ND Male genitourinary: no CVAT, No SPT, no bladder distention, genital exam deferred
--- OUTSIDE RECORDS SUMMARY | 2024-05-18 17:49 | XMS_ITS | Encounter Summary ---
Author Organization [facility] Address [address] 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
--- OUTSIDE RECORDS SUMMARY | 2024-05-18 17:49 | XMS_ITS | Clinical Summary ---
Author Organization [facility] Address [address] 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
--- OUTSIDE RECORDS SUMMARY | 2024-05-18 17:50 | XMS_ITS ---
Author Organization [facility] Address [address] [place] [address] Care Team Providers Care Scenery Builder Name Role Phone Kelly Gutierrez Primary Care Provider GARRETT Barksdale Unavailable [phone] REASON FOR VISIT Optilume BPH @ [facility] Encounters Encounter Location Date Provider Diagnosis [facility] [address] [place] [address] 01/30/2024 GARRETT CACERES BPH loc w urin obs/LUTS N40.1 Assessments Encounter Date Diagnosis (ICD Code) Assessment Notes Treatment Notes Treatment Clinical Notes Section Notes 01/30/2024 BPH loc w urin obs/LUTS (ICD-10 - N40.1) Plan Of Treatment Next Appt Details Provider Name:TATIANA FERNANDEZ NS, 06/03/2024 09:00:00 AM, [address] [place], [address], Progress Notes * Darin GANDHI GDOB: 3 (83 yo M)Acc No.[id number]:01/30/2024 Patient:?Darin GANDHI Provider:?GARRETT CACERES MD :1940???Age:83 Y???Sex:Male Gerry e:01/30/2024 Address:[address] [place] [address] [id number] Pcp:Kelly Gutierrez * Billing Information: * Visit Code:? * Procedure Codes:? 0619T CYSTO W/PRST8 COMMISSUROTOMY. * RETE FENCE BUILDER Sign off status: Completed true * Provider:?GARRETT CACERES MD Date:?01/20 Generated for Kulwant rodríguez/Debra/Anthony on:?05/18/2024 05:49 PM CDT
--- OUTSIDE RECORDS SUMMARY | 2024-05-18 17:50 | XMS_ITS | Patient Health Record ---
Author Organization [facility] Address [address] [place] [address] Care Team Providers Care Red Mud Thickener Operator Name Role Phone Kelly Gutierrez Primary Care Provider Carolann GARRETT Pedro Unavailable [phone] [place] Sukumar Unavailable [phone] Allergies No Known Allergies Results Component Value Reference Range Notes Basic Metabolic Panel Reviewed date:01/25/2024 03:48:16 PM Interpretation: Performing Lab: Notes/Report: Use of this assay is not recommended for patients undergoing treatment with phenindione, due to the potential for falsely depressed results. Testing performed at: [address] [place] [address] CLIA ID [id number] Calculation performed from GFR calculator provided by the National Kidney Foundation. Glomerular Filtration rate(GRF) is the best overall index of kidney function. Normal GFR varies according to age,sex, body size, and declines with age. The National Kidney Foundation recommends using the CKD-EPI Creatinine Equation(2020) to estimate GFR. Z-nvwnqv-f-benzoquinone imine (NAPQI) is a metabolite of acetaminophen, NAPQI concentrations of apparoximately 10 mg/L correlation to toxic levels of acetaminophen demonstrates a greater than or equil to 10% change in results. NAPQI concentrations greater than this may lead to falsely depressed results for patient samples. Testing performed at [facility], [address] [place] [address] [place] [address]. CLIA ID#: [id number] Sodium 141 136-145 MMOL/L Potassium 4.2 3.5-5.1 MMOL/L Chloride 99 98-107 MMOL/L CO2 35.4 20.0-31.0 MMOL/L Glucose Serum 220 71-110 MG/DL BUN 18 7-21 MG/DL Creat 1.16 .57-1.17 MG/DL GFR 62.7 Anion Gap 11 5-15 BUN/Creat Ratio 15.5 12.0-20.0 % Calcium 9.5 8.7-10.4 MG/DL Osmo Serum,Calculated 301 280-300 MOSM/KG CBC w/ Auto Diff Reviewed date:01/25/2024 03:48:06 PM Interpretation: Performing Lab: Notes/Report: Testing performed at: [address] [place] [address] CLIA ID [id number] WBC 5.7 4.5-11.0 X10'3 RBC 4.16 4.50-5.90 X10'6 Hgb 8.0 13.5-17.5 G/DL Hct 29.6 41.0-53.0 % MCV 71.2 80.0-100.0 FL MCH 19.2 27.0-31.0 PG MCHC 27.0 31.0-37.0 G/DL Platelet 248 150-400 X10'3 RDW-SD 42.7 35.0-49.0 FL RDW-CV 16.5 12.2-15.6 % MPV 10.5 9.2-12.0 FL Neutro Auto% 77.7 40.0-70.0 % Lymph Auto% 14.0 22.0-44.0 % Blaine Auto% 7.2 3.0-7.0 % Eos Auto% .5 2.0-4.0 % Baso Auto% 0.4 0.0-1.0 % Imm Gran% .2 .0-.4 % Neutro Abs 4.43 .80-7.70 Absolute Neutrophil Count 4430 Lymph Abs .80 .10-4.10 Blaine Abs .41 .20-1.00 Eos Abs .03 .00-.40 Baso Abs .02 .00-.20 Imm Gran Abs .01 .00-.10 NRBC# .00 .00-.20 NRBC% .00 .00-.20 /100 int act WBC's Urinalysis, Routine Reviewed date:01/25/2024 11:24:08 AM Interpretation: Performing Lab: Notes/Report: Urine-Color andre Appearance clear Glucose - Bilirubin - Ketones - Specific Lon[place] 1.010 Occult Blood - pH 6.0 Urine Protein - Urobilinogen,Semi-Qn - Nitrite, Urine - WBC Esterase - Scan Reviewed date:01/25/2024 03:48:04 PM Interpretation: Performing Lab: Notes/Report: PLT Appear Adequate Poik Slight Giant Platelets Present Ovalocytes Occasional Polychrom Occasional Testing perform ed at: [address] [place] [address] CLIA ID [id number] Aniso Slight Microcytosis Slight UBASE - Urinary Tract Infect ion (HTRx) Reviewed date:01/26/2024 11:15:04 AM Interpretation: Performing Lab:, [facility], Jakob Whitehead Edy Santiago, [place], Phone - [phone], Director - [id number] Notes/Report: Real-Time polymerase chain reaction (TaqMan qPCR) was utilized for detection for all tested organisms and resistance genes. COVID-19 testing separately performed using [employer] COVID-19 Combo kit. Initiation of antimicrobial therapy prior to testing may affect results and can lead to the detection of non-living microorganisms. Detection of microbes must be correlated with current/recent antibiotic usage and patient signs and symptoms. Microbial sensitivity testing is not performed at this lab. Underwear Trimmer to CFU/mL equivalent thresholds were established based on studies using known CFU/mL urine specimens performed at [facility] in [place], [place]. [facility] (Jakob Moise [place] [address]; CLIA# [id number]; Hearing Screen Coordinator Amy Lopez, PhD, [facility])). This test was developed, and its performance characteristics determined by [employer]. It has not been cleared or approved by the FDA. However, such approval/clearance is not required, as the laboratory is regulated and qualified under CLIA to perform high-complexity testing. This test is used for clinical purposes and should not be regarded as investigational or for research. *Approximate copies of target nucleic acid per &micro;L (Low: <2,500 copies/&micro;L, Moderate: 2,500-50,000 copies/&micro;L, High: >50,000 copies/&micro;L) National Infectious Disease Consensus Data Potentially effective oral antibiotics, based on presence of detected microbes, antimicrobial resistance genes, and national antimicrobial sensitivity data (see Summary Antibiogram). Acinetobacter baumannii 0.000 19.961 - 24.689 p pm Acinetobacter baumannii Not Detected 19.961 - 24.689 p pm Citrobacter freundii 0.000 23.000 - 31.881 ppm Citrobacter freundii Not Detected 23.000 - 31.881 ppm Enterobacter aerogenes, cloacae 0.000 23.000 - 31.535 ppm Enterobacter aerogenes, cloacae Not Detected 23.000 - 31.535 ppm Enterococcus faecalis, faecium 0.000 26.000 - 31.575 ppm Enterococcus faecalis, faecium Not Detected 26.000 - 31.575 ppm Escherichia coli 0.000 23.000 - 28.500 ppm Escherichia coli Not Detected 23.000 - 28.500 ppm Klebsiella pneumoniae, oxytoca 0.000 23.000 - 30.500 ppm Klebsiella pneumoniae, oxytoca Not Detected 23.000 - 30.500 ppm Morganella morganii 0.000 19.961 - 24.689 ppm Morganella morganii Not Detected 19.961 - 24.689 ppm Proteus mirabilis, vulgaris 0.000 23.000 - 28.5 00 ppm Proteus mirabilis, vulgaris Not Detected 23.000 - 28.5 00 ppm Pseudomonas aeruginosa 0.000 23.000 - 28.500 pp m Pseudomonas aeruginosa Not Detected 23.000 - 28.500 pp m Staphylococcus aureus 0.000 26.000 - 30.902 ppm Staphylococcus aureus Not Detected 26.000 - 30.902 ppm Streptococcus agalactiae (Group B Strep) 0.000 26.000 - 32.222 ppm Streptococcus agalactiae (Group B Strep) Not Detected 26.000 - 32.222 ppm Sona albicans, parapsilosis, tropicalis 0.000 19.961 - 30.770 ppm Sona albicans, parapsilosis, tropicalis Not Detected 19.961 - 30.770 ppm Sona glabrata (Nakaseomyces glabratus) 0.000 23.000 - 32.138 ppm Sona glabrata (Nakaseomyces glabratus) Not Detected 23.000 - 32.138 ppm Sona krusei (Pichia kudriavzevii) 0.000 23.000 - 32.271 ppm Sona krusei (Pichia kudriavzevii) Not Detected 23.000 - 32.271 ppm Serratia marcescens 0.000 23.000 - 31.204 ppm Serratia marcescens Not Detected 23.000 - 31.204 ppm Streptococcus pyogenes (Group A strep) 0.000 19.961 - 24.689 ppm Streptococcus pyogenes (Group A strep) Not Detected 19.961 - 24.689 ppm Staphylococcus saprophyticus 0.000 19.961 - 24.689 ppm Staphylococcus saprophyticus Not Detected 19.961 - 24.689 ppm Staphylococcus epidermidis, haemolyticus, lugdunensis 0.000 19.961 - 24.689 ppm Staphylococcus epidermidis, haemolyticus, lugdunensis Not Detected 19.961 - 24.689 ppm Urinalysis, Routine Reviewed date:08/07/2023 02:58:49 PM Interpretation: Performing Lab: Notes/Report: Urine-Color yellow Appearance clear Glucose - Bilirubin - Ketones - Specific Lonoke 1.010 Occult Blood - pH 6.5 Urine Protein trace Urobilinogen,Semi-Qn - Nitrite, Urine - WBC Esterase - Urinalysis Gross Exam - Urinalysis, Routine Reviewed date:11/23/2023 01:49:55 PM Interpretation: Performing Lab: Notes/Report: Urine-Color yellow Appearance clear Glucose - Bilirubin - Ketones - Specific Lonoke 1.015 Occult Blood - pH 6.0 Urine Protein 1+ Urobilinogen,Semi-Qn - Nitrite, Urine - WBC Esterase 2+ Reason For Referral No Information Medications Medication SIG (Take, Route, Frequency, Duration) Notes Start Date End Date Status Losartan Potassium 25 MG 1 tablet Orally Once a day Active Omeprazole 20 MG 1 capsule 30 minutes before morning meal Orally Once a day Active Finasteride 5 MG 1 tablet Orally Once a day Active Bumetanide 2 MG 1 tablet Orally Once a day Active Ciprofloxacin HCl 500 MG 1 tablet Orally every 12 hrs for 3 days 11/23/2023 Not-Taking amLODIPine Besylate 10 MG 1 tablet Orall y Once a day Active Tamsulosin HCl 0.4 MG 1 capsule Orally O nce a day Active Metoprolol Tartrate 25 MG [...] (Standard) Question Answer Notes Tobacco use: Nonsmoker Problems Problem Type SNOMED Code ICD Code Onset Dates Problem Status W/U Status Risk Notes Problem 14562674 Essential (primary) hypertension (I10) Active confirmed Problem Lower urinary tract symptoms due to benign prostatic hypertrophy (85463442688604 ) Benign prostatic hyperplasia with lower urinary tract symptoms (N40.1) Active confirmed Problem Acute renal failure syndrome (23896361) LIU (acute kidney injury) (N17.9) Active confirmed history of LIU Problem Retention of urine (249812516) History of urinary retention (Z87.898) Active confirmed Problem Incomplete emptying of bladder (526494646) Incomplete emptying of bladder (R33.9) Active confirmed Problem Benign prostatic hypertrophy with outflow obstruction (601978237) BPH loc w urin obs/LUTS (N40.1) Active confirmed Vital Signs Heart Rate 72 /min 03/04/2024 Temperature 97.8 degrees Fahrenheit 08/07/2023 Blood pressure diastolic 87 mm Hg 03/04/2024 Height-cm 173.99 cm 03/04/2024 Weight-kg 79.38 kg 03/04/2024 Height 68.5 in 03/04/2024 Blood pressure systolic 125 mm Hg 03/04/2024 Weight 175 lbs 03/04/2024 BMI 26.22 kg/m2 03/04/2024 Procedures Procedure Date Ordered Date Performed Result Body Sit e Bladder Scan 08/07/2023 08/07/2023 N/A Bladder Scan 11/06/2023 11/06/2023 N/A UroFlow 12/28/2023 N/A Bladder Scan 12/28/2023 12/28/2023 PVR 144ml Voiding Trial 02/05/2024 N/A Bladder Scan 03/04/2024 03/04/2024 PVR 395ml Encounters Encounter Location Date Provider Diagnosis [employer], [facility] [address] [place] [address] 01/25/2024 GARRETT BUNCH Preop testing Z01.81 8 and Essential (primary) hypertension I10 [facility], [facility] [address] [place] [address] 08/07/2023 GARRETT BUNCH BPH loc w urin obs/LUTS N40.1 ; Incomplete emptying of bladder R33.9 ; LIU (acute kidney injury) N17.9 and History of urinary retention Z87.898 [facility], [facility] [address] [place] [address] 11/06/2023 GARRETT BUNCH BPH loc w urin obs/LUTS N40.1 ; Incomplete emptying of bladder R33.9 ; LIU (acute kidney injury) N17.9 and History of urinary retention Z87.898 [facility], [facility] [address] [place] [address] 12/28/2023 GARRETT BUNCH Incomplete emptying of bladder R33.9 ; LIU (acute kidney injury) N17.9 ; History of urinary retention Z87.898 and Benign prostatic hyperplasia with lower urinary tract symptoms N40.1 [facility] [employer], [facility] [address] [place] [address] 01/25/2024 Sukumar Pevril Incomplete emptying of bladder R33.9 ; LIU (acute kidney injury) N17.9 ; History of urinary retention Z87.898 and Benign prostatic hyperplasia with lower urinary tract symptoms N40.1 [facility] [employer], [facility] [address] [place] [address] 02/05/2024 Sukumar Pevril Catheter (urine) change required Z46.6 and BPH loc w urin obs/LUTS N40.1 [facility] [employer], [facility] [address] [place] [address] 11/23/2023 GARRETT BUNCH Incomplete emptying of bladder R33.9 ; LIU (acute kidney injury) N17.9 ; History of urinary retention Z87.898 and Benign prostatic hyperplasia with lower urinary tract symptoms N40.1 [facility] [employer], [facility] [address] [place] [address] 03/04/2024 GARRETT BUNCH Incomplete emptying of bladder R33.9 ; History of urinary retention Z87.898 and Benign prostatic hyperplasia with lower urinary tract symptoms N40.1 [facility], [facility] [address] [place] [address] 01/30/2024 GARRETT MILANER BPH loc w urin obs/LUTS N40.1 Assessments Encounter Date Diagnosis (ICD Code) Assessment Notes Treatment Notes Treatment Clinical Notes Section Notes 02/05/2024 Catheter (urine) change required (ICD-10 - Z46.6) 02/05/2024 BPH loc w urin obs/LUTS (ICD-10 - N40.1) 01/25/2024 Preop testing (ICD-10 - Z01.818) 01/25/2024 Incomplete emptying of bladder (ICD-10 - R33.9) 83 YO M w BPH/LUTS on MMM with Flomax and finasteride. History of LIU and AUR. Previous IPSS 25. Previous Cysto shows trilobar long 5.5cm obstructing prostate. He is still eager to move forward with Optilume. Previous cystoscopy found PUL 5.5 cm. Given everything discussed and failed outpatient management, we discussed on how the procedure was performed, and we also had further discussion with risks/benefits/alt ernatives and postprocedural expectations. Presurgical and what to expect postoperatively was also discussed. Presurgical packet with after care discussed and given to patient as well as medications to hold that can thin the blood.. The plan is to have this done as soon as possible given symptoms. UA today sent today for presurgical culture. Patient is agreeable and is eager to have done. For now, no further workup or investigation at this time, and further recommendations following the procedure. All questions that were asked, were answered. Patient satisfied with this plan. 11/23/2023 Incomplete emptying of bladder (ICD-10 - R33.9) 83 YO M w BPH/LUTS on MMM with Flomax and finasteride. History of LIU and AUR. IPSS 20. PVR 721cc. Cysto shows trilobar long obstructing prostate. Plan: -BPH pamphlets given today Optilume, PVP, Rezum - RTC 4-6 weeks FR/PVR and IPSS -RTC or call sooner with any concerns 03/04/2024 Incomplete emptying of bladder (ICD-10 - R33.9) 83 YO M w BPH/LUTS on MMM with Flomax and finasteride. History of LIU and AUR. He underwent optilume BPH on 01/30/24. IPSS 12. QoL 5. PVR 395cc. Doing well postoperatively. He will return in 3m with UA,PVR,IPSS and see Tatiana K Yosi, LICENSED PESTICIDE APPLICATOR. Return sooner with any concern. Plan: -RTC in 3m with UA,PVR and IPSS and see Tatiana Deluca APRN I, Alyssa Red, Abrilibog, am scribing for, and in the presence of, Dr. Bunch. I, Dr. Garrett Bunch, personally performed the services prescribed in this documentation, as scribed by Alyssa Red, in my presence, and it is both accurate and complete. 01/30/2024 BPH loc w urin obs/LUTS (ICD-10 - N40.1) 08/07/2023 Incomplete emptying of bladder (ICD-10 - R33.9) 83 YO M w BPH/LUTS on MMM with flomax/ finasteride. History of LIU and AUR. IPSS 20. PVR 721cc. We discussed in consultation his residual urine volume and the need to begin CIC regimine. I recommend pt CIC TID. He will void naturally then measure residuals. If he frequently has residuals over 500ml, we discussed increasing CIC to QID. We discussed risks associated with high volume incomplete emptying. He denies having seen help aid and reports PCP manages labs. Pt reports he feels like his stream is strong when he does void naturally. All questions that were asked were answered and pt is in agreement with this plan. Plan: -Start CIC TID -Cont Flomax and Finasteride -f/u in 3 mos with UA/ PVR, IPSS 08/07/2023 BPH loc w urin obs/LUTS (ICD-10 - N40.1) 83 YO M w BPH/LUTS on MMM with flomax/ finasteride. History of LIU and AUR. IPSS 20. PVR 721cc. We discussed in consultation his residual urine volume and the need to begin CIC regimine. I recommend pt CIC TID. He will void naturally then measure residuals. If he frequently has residuals over 500ml, we discussed increasing CIC to QID. We discussed risks associated with high volume incomplete emptying. He denies having seen help aid and reports PCP manages labs. Pt reports he feels like his stream is strong when he does void naturally. All questions that were asked were answered and pt is in agreement with this plan. Plan: -Start CIC TID -Cont Flomax and Finasteride -f/u in 3 mos with UA/ PVR, IPSS 12/28/2023 Incomplete emptying of bladder (ICD-10 - R33.9) 83 YO M w BPH/LUTS on MMM with Flomax and finasteride. History of LIU and AUR. IPSS 25. PVR 144cc. Cysto shows trilobar long 5.5cm obstructing prostate. Discussed BPH procedures,Optilum e, PVP, Rezum. Will need to hold Aspirin 7 days prior. How the procedures were performed was discussed along with risks/benefits/alt ernatives and postprocedural expectations. Pt chose optilume and will schedule next available. Plan: hold ASA 7 days prior to surgery - Will schedule next available Optilume BPH treatment at [facility] - RTC post op Alyssa Modi Scribe, am scribing for, and in the presence of, Dr. Bunch. I, Dr. Garrett Bunch, personally performed the services prescribed in this documentation, as scribed by Alyssa Red, in my presence, and it is both accurate and complete. 11/06/2023 Incomplete emptying of bladder (ICD-10 - R33.9) 83 YO M w BPH/LUTS on MMM with Flomax and finasteride. History of LIU and AUR. IPSS 20. PVR 721cc. He is performing CIC 3x/day. PVR 138 ml For further evaluation of his anatomy, we will proceed with an in office Cystoscopy. Pt elects to plan of care and will continue with Flomax, Finasteride and CIC 3x daily. All question answered Plan: continue flomax and proscar continue CIC 3x/day with 14 Fr straight catheter - RTC for next available Cystoscopy -RTC or call sooner with any concerns Alyssa Modi Scribe, am scribing for, and in the presence of, Dr. Bunch. I, Dr. Garrett Bunch, personally performed the services prescribed in this documentation, as scribed by Alyssa Red, in my presence, and it is both accurate and complete. 11/06/2023 BPH loc w urin obs/LUTS (ICD-10 - N40.1) 83 YO M w BPH/LUTS on MMM with Flomax and finasteride. History of LIU and AUR. IPSS 20. PVR 721cc. He is performing CIC 3x/day. PVR 138 ml For further evaluation of his anatomy, we will proceed with an in office Cystoscopy. Pt elects to plan of care and will continue with Flomax, Finasteride and CIC 3x daily. All question answered Plan: continue flomax and proscar continue CIC 3x/day with 14 Fr straight catheter - RTC for next available Cystoscopy -RTC or call sooner with any concerns IAlyssa, Scrtom, am scribing for, and in the presence of, Dr. Bunch. I, Dr. Garrett Bunch, personally performed the services prescribed in this documentation, as scribed by Alyssa Red, in my presence, and it is both accurate and complete. 08/07/2023 LIU (acute kidney injury) (ICD-10 - N17.9) history of LIU 83 YO M w BPH/LUTS on MMM with flomax/ finasteride. History of LIU and AUR. IPSS 20. PVR 721cc. We discussed in consultation his residual urine volume and the need to begin CIC regimine. I recommend pt CIC TID. He will void naturally then measure residuals. If he frequently has residuals over 500ml, we discussed increasing CIC to QID. We discussed risks associated with high volume incomplete emptying. He denies having seen help aid and reports PCP manages labs. Pt reports he feels like his stream is strong when he does void naturally. All questions that were asked were answered and pt is in agreement with this plan. Plan: -Start CIC TID -Cont Flomax and Finasteride -f/u in 3 mos with UA/ PVR, IPSS 11/06/2023 LIU (acute kidney injury) (ICD-10 - N17.9) history of LIU 83 YO M w BPH/LUTS on MMM with Flomax and finasteride. History of LIU and AUR. IPSS 20. PVR 721cc. He is performing CIC 3x/day. PVR 138 ml For further evaluation of his anatomy, we will proceed with an in office Cystoscopy. Pt elects to plan of care and will continue with Flomax, Finasteride and CIC 3x daily. All question answered Plan: continue flomax and proscar continue CIC 3x/day with 14 Fr straight catheter - RTC for next available Cystoscopy -RTC or call sooner with any concerns I, Stormy Kapelski, Scribe, am scribing for, [...] 12. QoL 5. PVR 395cc. Doing well postoperatively. He will return in 3m with UA,PVR,IPSS and see Tatinaa Deluca APRN. Return sooner with any concern. Plan: -RTC in 3m with UA,PVR and IPSS and see Tatiana Deluca APRN I, Stormy Kapelski, Scribe, am scribing for, and in the presence of, Dr. Bunch. I, Dr. Garrett Bunch, personally performed the services prescribed in this documentation, as scribed by Alyssa Red, in my presence, and it is both accurate and complete. 12/28/2023 LIU (acute kidney injury) (ICD-10 - N17.9) history of LIU 83 YO M w BPH/LUTS on MMM with Flomax and finasteride. History of LIU and AUR. IPSS 25. PVR 144cc. Cysto shows trilobar long 5.5cm obstructing prostate. Discussed BPH procedures,Optilum e, PVP, Rezum. Will need to hold Aspirin 7 days prior. How the procedures were performed was discussed along with risks/benefits/alt ernatives and postprocedural expectations. Pt chose optilume and will schedule next available. Plan: hold ASA 7 days prior to surgery - Will schedule next available Optilume BPH treatment at [facility] - RTC post op Alyssa Modi Scribe, am scribing for, and in the presence of, Dr. Bunch. Rian, Dr. Garrett Bunch, personally performed the services prescribed in this documentation, as scribed by Alyssa Red, in my presence, and it is both accurate and complete. 11/23/2023 LIU (acute kidney injury) (ICD-10 - N17.9) history of LIU 83 YO M w BPH/LUTS on MMM with Flomax and finasteride. History of LIU and AUR. IPSS 20. PVR 721cc. Cysto shows trilobar long obstructing prostate. Plan: -BPH pamphlets given today Optilume, PVP, Rezum - RTC 4-6 weeks FR/PVR and IPSS -RTC or call sooner with any concerns 01/25/2024 LIU (acute kidney injury) (ICD-10 - N17.9) history of LIU 83 YO M w BPH/LUTS on MMM with Flomax and finasteride. History of LIU and AUR. Previous IPSS 25. Previous Cysto shows trilobar long 5.5cm obstructing prostate. He is still eager to move forward with Optilume. Previous cystoscopy found PUL 5.5 cm. Given everything discussed and failed outpatient management, we discussed on how the procedure was performed, and we also had further discussion with risks/benefits/alt ernatives and postprocedural expectations. Presurgical and what to expect postoperatively was also discussed. Presurgical packet with after care discussed and given to patient as well as medications to hold that can thin the blood.. The plan is to have this done as soon as possible given symptoms. UA today sent today for presurgical culture. Patient is agreeable and is eager to have done. For now, no further workup or investigation at this time, and further recommendations following the procedure. All questions that were asked, were answered. Patient satisfied with this plan. 01/25/2024 Essential (primary) hypertension (ICD-10 - I10) 01/25/2024 History of urinary retention (ICD-10 - Z87.898) 83 YO M w BPH/LUTS on MMM with Flomax and finasteride. History of LIU and AUR. Previous IPSS 25. Previous Cysto shows trilobar long 5.5cm obstructing prostate. He is still eager to move forward with Optilume. Previous cystoscopy found PUL 5.5 cm. Given everything discussed and failed outpatient management, we discussed on how the procedure was performed, and we also had further discussion with risks/benefits/alt ernatives and postprocedural expectations. Presurgical and what to expect postoperatively was also discussed. Presurgical packet with after care discussed and given to patient as well as medications to hold that can thin the blood.. The plan is to have this done as soon as possible given symptoms. UA today sent today for presurgical culture. Patient is agreeable and is eager to have done. For now, no further workup or investigation at this time, and further recommendations following the procedure. All questions that were asked, were answered. Patient satisfied with this plan. 11/23/2023 History of urinary retention (ICD-10 - Z87.898) 83 YO M w BPH/LUTS on MMM with Flomax and finasteride. History of LIU and AUR. IPSS 20. PVR 721cc. Cysto shows trilobar long obstructing prostate. Plan: -BPH pamphlets given today Optilume, PVP, Rezum - RTC 4-6 weeks FR/PVR and IPSS -RTC or call sooner with any concerns 12/28/2023 History of urinary retention (ICD-10 - Z87.898) 83 YO M w BPH/LUTS on MMM with Flomax and finasteride. History of LIU and AUR. IPSS 25. PVR 144cc. Cysto shows trilobar long 5.5cm obstructing prostate. Discussed BPH procedures,Optilum e, PVP, Rezum. Will need to hold Aspirin 7 days prior. How the procedures were performed was discussed along with risks/benefits/alt ernatives and postprocedural expectations. Pt chose optilume and will schedule next available. Plan: hold ASA 7 days prior to surgery - Will schedule next available Optilume BPH treatment at [facility] - RTC post op IAlyssa, Maria Del Carmen, am scribing for, and in the presence of, Dr. Bunch. I, Dr. Garrett Bunch, personally performed the services prescribed in this documentation, as scribed by Alyssa Red, in my presence, and it is both accurate and complete. 11/06/2023 History of urinary retention (ICD-10 - Z87.898) 83 YO M w BPH/LUTS on MMM with Flomax and finasteride. History of LIU and AUR. IPSS 20. PVR 721cc. He is performing CIC 3x/day. PVR 138 ml For further evaluation of his anatomy, we will proceed with an in office Cystoscopy. Pt elects to plan of care and will continue with Flomax, Finasteride and CIC 3x daily. All question answered Plan: continue flomax and proscar continue CIC 3x/day with 14 Fr straight catheter - RTC for next available Cystoscopy -RTC or call sooner with any concerns Alyssa Modi Scribe, am scribing for, and in the presence of, Dr. Bunch. I, Dr. Garrett Bunch, personally performed the services prescribed in this documentation, as scribed by Alyssa Red, in my presence, and it is both accurate and complete. 08/07/2023 History of urinary retention (ICD-10 - Z87.898) 83 YO M w BPH/LUTS on MMM with flomax/ finasteride. History of LIU and AUR. IPSS 20. PVR 721cc. We discussed in consultation his residual urine volume and the need to begin CIC regimine. I recommend pt CIC TID. He will void naturally then measure residuals. If he frequently has residuals over 500ml, we discussed increasing CIC to QID. We discussed risks associated with high volume incomplete emptying. He denies having seen help aid and reports PCP manages labs. Pt reports he feels like his stream is strong when he does void naturally. All questions that were asked were answered and pt is in agreement with this plan. Plan: -Start CIC TID -Cont Flomax and Finasteride -f/u in 3 mos with UA/ PVR, IPSS 03/04/2024 Benign prostatic hyperplasia with lower urinary tract symptoms (ICD-10 - N40.1) 83 YO M w BPH/LUTS on MMM with Flomax and finasteride. History of LIU and AUR. He underwent optilume BPH on 01/30/24. IPSS 12. QoL 5. PVR 395cc. Doing well postoperatively. He will return in 3m with UA,PVR,IPSS and see Tatiana Deluca APRN. Return sooner with any concern. Plan: -RTC in 3m with UA,PVR and IPSS and see Tatiana Deluca APRN I, Stormy Kapelski, Scribe am scribing for, and in the presence of, Dr. Bunch. IDr. Garrett, personally performed the services prescribed in this documentation, as scribed by Alyssa Red, in my presence, and it is both accurate and complete. 01/25/2024 Benign prostatic hyperplasia with lower urinary tract symptoms (ICD-10 - N40.1) 83 YO M w BPH/LUTS on MMM with Flomax and finasteride. History of LIU and AUR. Previous IPSS 25. Previous Cysto shows trilobar long 5.5cm obstructing prostate. He is still eager to move forward with Optilume. Previous cystoscopy found PUL 5.5 cm. Given everything discussed and failed outpatient management, we discussed on how the procedure was performed, and we also had further discussion with risks/benefits/alt ernatives and postprocedural expectations. Presurgical and what to expect postoperatively was also discussed. Presurgical packet with after care discussed and given to patient as well as medications to hold that can thin the blood.. The plan is to have this done as soon as possible given symptoms. UA today sent today for presurgical culture. Patient is agreeable and is eager to have done. For now, no further workup or investigation at this time, and further recommendations following the procedure. All questions that were asked, were answered. Patient satisfied with this plan. 11/23/2023 Benign prostatic hyperplasia with lower urinary tract symptoms (ICD-10 - N40.1) 83 YO M w BPH/LUTS on MMM with Flomax and finasteride. History of LIU and AUR. IPSS 20. PVR 721cc. Cysto shows trilobar long obstructing prostate. Plan: -BPH pamphlets given today Optilume, PVP, Rezum - RTC 4-6 weeks FR/PVR and IPSS -RTC or call sooner with any concerns 12/28/2023 Benign prostatic hyperplasia with lower urinary tract symptoms (ICD-10 - N40.1) 83 YO M w BPH/LUTS on MMM with Flomax and finasteride. History of LIU and AUR. IPSS 25. PVR 144cc. Cysto shows trilobar long 5.5cm obstructing prostate. Discussed BPH procedures,Optilum e, PVP, Rezum. Will need to hold Aspirin 7 days prior. How the procedures were performed was discussed along with risks/benefits/alt ernatives and postprocedural expectations. Pt chose optilume and will schedule next available. Plan: hold ASA 7 days prior to surgery - Will schedule next available Optilume BPH treatment at [facility] - RTC post op Alyssa Modi Scribe, am scribing for, and in the presence of, Dr. Bunch. I, Dr. Garrett Bunch, personally performed the services prescribed in this documentation, as scribed by Alyssa Red, in my presence, and it is both accurate and complete. Plan Of Treatment Pending Test Test Name Order Date Urinalysis, Routine 11/06/2023 Voiding Trial 02/05/2024 UroFlow 12/28/2023 Electrocardiogram, 12 Lead Tracing-21900 01/25/2024 Next Appt Details Provider Name:TATIANA RIVERA, 06/03/2024 09:00:00 AM, [address] [place], [address], Insurance Providers Payer Name Payer Address Payer Phone Subscriber Number Group Number Insured Name Patient Relationship to Insured Coverage Start Date Coverage End Date [place] [address] [facility] [id number] Darin Baca Self - patient is the insured Medical (General) History Medical History History ICD Code BPH w/ LUTS Bronchitis hypertension back trouble diabetes recurrent bladder infections incomplete emptying of bladder Surgical History Surgery Date(Month/Year) bilateral hip replacement Optilume Hospitalization History Reason Date(Month/Year) see sx hx
--- OUTSIDE RECORDS SUMMARY | 2024-05-18 17:50 | XMS_ITS ---
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 Name Role Phone Kelly Gutierrez Primary Care Provider GARRETT Barksdale Unavailable [phone] Sukumar Bethea Unavailable [phone] Allergies No Known Allergies REASON FOR VISIT VT Medications Medication SIG (Take, Route, Frequency, Duration) Notes Start Date End Date Status Ciprofloxacin HCl 500 MG 1 tablet Orally every 12 hrs for 3 days 11/23/2023 Not-Taking Bumetanide 2 MG 1 tablet Orally Once a day Active Tamsulosin HCl 0.4 MG 1 capsule Orally O nce a day Active amLODIPine Besylate 10 MG 1 tablet Orall y Once a day Active Finasteride 5 MG 1 tablet Orally Once a day Active Gabapentin 300 MG 1 capsule Orally Onc e a day Active Metoprolol Tartrate 25 MG 1 tablet with food Orally Twice a day Active Aspirin 81 81 MG 1 tablet Orally Once a day Active Omeprazole 20 MG 1 capsule 30 minutes before morning meal Orally Once a day Active Losartan Potassium 25 MG 1 tablet Orally Once a day Active Social History Tobacco Use: Social History Observation Description Date Details (start date - stop date) Never Smoker NA - NA Tobacco Control (Standard) Question Answer Notes Tobacco use: Nonsmoker Vital Signs Blood pressure systolic 137 mm Hg 02/05/20 24 Blood pressure diastolic 68 mm Hg 024 Heart Rate 86 /min 02/05/2024 Height 68.5 in 02/05/2024 Weight 175 lbs 02/05/2024 BMI 26.22 kg/m2 02/05/2024 Height-cm 173.99 cm 02/05/2024 Weight-kg 79.38 kg 02/05/2024 Procedures Procedure Date Ordered Date Performed Result Body Sit e Voiding Trial 02/05/2024 N/A Encounters Encounter Location Date Provider Diagnosis [facility] [address] [place] [address] 02/05/2024 Sukumar Bethea Catheter (urine) change required Z46.6 and BPH loc w urin obs/LUTS N40.1 Assessments Encounter Date Diagnosis (ICD Code) Assessment Notes Treatment Notes Treatment Clinical Notes Section Notes 02/05/2024 Catheter (urine) change required (ICD-10 - Z46.6) 02/05/2024 BPH loc w urin obs/LUTS (ICD-10 - N40.1) Plan Of Treatment Pending Test Test Name Order Date Voiding Trial 02/05/2024 Next Appt Details Follow Up: post op 4 Weeks, Reason: Provider Name:TATIANA RIVERA, 06/03/2024 09:00:00 AM, [address] [place], [address], Progress Notes * Darin GANDHI GDOB: [birth year] (83 yo M)Acc No.[id number]:02/05/2024 Progress Note Patient:?Darin GANDHI Grupo Provider:?Sukumar Bethea APRN :1940???Age:83 Y???Sex:Male Gerry e:02/05/2024 Address:[address] [place], [place] [id number] Pcp:Kelly Gutierrez Subjective: * Chief Complaints: * ???1. VT. * Medical History:?BPH w/ LUTS , Bronchitis, Hypertension, Back trouble, Diabetes, Recurrent bladder infections, Incomplete emptying of bladder. * Surgical History:?bilateral hip replacement 2015/2016. * Hospitalization/Major Diagno stic Procedure:?see sx hx [...] the patient * Allergies:?N.K.D.A. Objective: * Vitals:?BP: 137/68 mm Hg, HR : 86 /min, Wt: 175 lbs, Wt-k.38 kg, Ht: 68.5 in, Ht-cm: 173.99 cm, BMI: 26.22 Index, Body Surface Area: 1.96. Assessment: * Assessment: 1.?Catheter (urine) change r equired - Z46.6 (Primary)???2.?BPH loc w urin obs/LUTS - N40.1??? Plan: * Treatment: * Procedure Codes:?75902 IRRIG ATION OF BLADDER * Follow Up:?post op 4 Weeks * Billing Information: * Visit Code:? * Procedure Codes:? 54967 IRRIGATION OF BLADDER. * ORK PROGRAMMER Sign off status: Completed true * Provider:?Sukumar Bethea APRN Date:?01/20 Generated for Kulwant rodríguez/Debra/Rosalinditting on:?05/18/2024 05:49 PM CDT
[2024-05-18] MEDS: enoxaparin 40 mg/0.4 mL Syringe SUBCUT (19:16)
[2024-05-18] MEDS: pantoprazole 40 mg SDV IVP (19:17)
[2024-05-18] MEDS: TRAMadol 50 mg Tablet PO (19:17)
[2024-05-18] MEDS: metoprolol tartrate 25 mg Tablet PO (19:17)
[2024-05-18] MEDS: gabapentin 300 mg Capsule PO (19:17)
[2024-05-18 19:36] LABS: Glucose Point of Care 358 mg/dL (70-110)
[2024-05-18] MEDS: insulin lispro 100 unit/1 mL SUBCUT (20:29)
[2024-05-18 21:15] LABS: Glucose Point of Care 305 mg/dL (70-110)
[2024-05-19] VITALS (16 sets, daily range): BP systolic 116–154; BP diastolic 50–83; PULSE 73–88; RESP 16–19; TEMP 36.7–36.9; O2SAT 93–97
[2024-05-19 05:26] LABS: Basophils % 0.1 %; Hematocrit 31.1 % (37-53); Lymphocytes # 0.6 10^3/uL (0.8-4.8); Lymphocytes % 5.8 %; Mean Corpuscular HGB Conc 26.7 g/dL (30-55); Mean Corpuscular Hemoglobin 18.8 pg (27-33); Mean Corpuscular Volume 70.4 fl (82-101); Mean Platelet Volume 10.2 fL (7.4-10.4); Monocytes % 0.4 %; Neutrophils # 10.26 10^3/uL (1.8-7.7); Nucleated Red Blood Cells % 0 %; Platelet Count 310 10^3/cmm (157-399); Red Blood Count 4.42 10^6/uL (3.85-5.65); Red Cell Distribution Width 17.5 % (12.1-15.1); White Blood Count 11.03 10^3/uL (3.29-11.43)
[2024-05-19 05:50] LABS: Estmated Average Glucose 128; Hemoglobin A1C 6.1 % (4.0-6.0)
[2024-05-19 05:53] LABS: Alanine Aminotransferase < 5 U/L (0-41); Albumin Level 3.4 g/dL (3.5-5.2); Alkaline Phosphatase 117 U/L (40-130); Anion Gap 14.5 (5-19); Aspartate Amino Transferase 14 U/L (0-40); Blood Urea Nitrogen 15 mg/dL (8-23); Calcium 8.5 mg/dL (8.5-10.5); Carbon Dioxide 30 mmol/L (22-29); Chloride 96 mmol/L (98-107); Globulin 3.3 g/dL (1.3-4.6); Glucose 229 mg/dL (65-115); Osmolality Calculated 290 mOsm/kg (285-295); Potassium 4.5 mmol/L (3.5-5.1); Sodium 136 mmol/L (136-145); Total Bilirubin 0.5 mg/dL (0.15-1.2); Total Protein 6.7 g/dL (6.6-8.7)
[2024-05-19] MEDS: aspirin 81 mg EC Tablet PO (06:20)
[2024-05-19] MEDS: bumetanide 1 mg Tablet PO (06:21)
[2024-05-19] MEDS: losartan 50 mg Tablet 25 MG PO (06:21)
[2024-05-19] MEDS: finasteride 5 mg Tablet PO (06:21)
--- NOTE | 2024-05-19 06:21 | P.PN_ITS ---
Subjective 2 Subjective: Says that he feels better today, his breathing is better, and he is able to move around more. Did receive a unit of blood yesterday. Has a microcytic anemia. Blood pressure is a little bit elevated today. Currently at 154/83. His oxygen requirement is down to 3 L with his O2 sats at 96%. He says his baseline at home is 2-1/2 L. He did have strep bovis and a urine culture last month. He has blood cultures pending. He did have a CT of the abdomen and pelvis in 2021 that did not show any colon masses. Vitals/I&O/Wt Last Vital Signs Temp 98.2 F 05/19/24 04:00 Pulse 78 05/19/24 05:28 Resp 19 H 05/19/24 04:00 BP 153/69 05/19/24 04:00 Pulse Ox 94 05/19/24 04:00 O2 Del Method Nasal Cannula 05/19/24 04:00 O2 Flow Rate 2.5 05/18/24 20:00 05/18/24 05/18/24 05/19/24 14:59 22:59 06:59 Intake Total 0 / 0 300 / 300 Output Total 300 / 300 Balance 0 / 0 300 / 300 -300 / 0 Weight last 48 hrs Weight 185 lb 14.4 oz Weight 183 lb 5 oz Weight 175 lb Physical Exam 2 Narrative: General: Cooperative patient in no apparent distress. Patient in respiratory distress with mild activity. HEENT: Normocephalic, Atraumatic. External ears normal. Nasal passages patent without drainage. MMM. Heart: RRR. Resp: There are widespread crackles, rhonchi, and occasional wheezes. Abd: Soft, non-tender. Non-distended. Extremities: He is very weak and unstable when standing. Skin: No rash or lesions on exposed areas. Data 05/19/24 04:31 05/19/24 04:31 Micro: Microbiology 05/18/24 13:53 Blood Culture - Preliminary Blood SPECIMEN COLLECTED 05/18/24 13:55 Blood Culture - Preliminary Blood SPECIMEN COLLECTED A&P Assessment and plan (1) Pneumonia: Qualifiers: Pneumonia type: due to unspecified organism Laterality: bilateral Lung location: unspecified part of lung Qualified Code(s): J18.9 - Pneumonia, unspecified organism (2) COPD (chronic obstructive pulmonary disease): Qualifiers: COPD type: unspecified COPD Qualified Code(s): J44.9 - Chronic obstructive pulmonary disease, unspecified (3) COPD with acute exacerbation: (4) Acute on chronic hypoxic respiratory failure: (5) Diabetes: Qualifiers: Diabetes mellitus type: type 2 Diabetes mellitus long-term insulin use: without long-term use Diabetes mellitus complication status: without complication Qualified Code(s): E11.9 - Type 2 diabetes mellitus without complications (6) Hypertension: Qualifiers: Hypertension type: essential hypertension Qualified Code(s): I10 - Essential (primary) hypertension (7) Leg swelling: Plan 84-year-old male admitted for pneumonia, respiratory distress and hypoxia. Continue close inpatient monitoring. Antibiotics switched to levofloxacin. Will continue for now. Chest x-ray shows possible consolidation multiple areas of scarring, as well as right lobectomy. CT scan obtained 05/18/2024 shows: 1. Bilateral pleural calcifications most consistent with asbestosis exposure. 2. Prominent 6.1 x 7.8 x 4.3 cm partially calcified soft tissue thickening/mass in the right posterior pleural space which may be asbestosis related fibrosis although neoplasm is not ruled out. 3. 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 Oxygen requirement is improved. He is still on 3 L but he is satting in the upper 90s. Will reduce back to his baseline at 2.5. WBCs improved to 11 from 12.3 on admission. He received a unit of blood yesterday. Hemoglobin is up today 8.3 from 7.3. He does appear to have a microcytic anemia. We will obtain an anemia panel as well. Continue antibiotics and steroids. Recheck labs in the a.m. Code Status: Full IVF: None DVT PPx: Lovenox GI PPx: Protonix ABx: Levofloxacin Diet: Regular Discharge plan: Home when appropriate. PDMP PDMP Reviewed: Not Reviewed Attestations 2 Medical Necessity Statement*: Will need continued inpatient stay for treatment of pneumonia including lab evaluation, anemia workup, physical therapy, and IV antibiotics. Coding Level of Care Code Acute Code for Chg Fwd Moderate MDM includes number and complexity of problems actively addressed during encounter, amount and/or complexity of data reviewed/ordered and described risk of complication, morbidity or mortality of management as documented Diagnoses Pneumonia of both lungs due to infectious organism, unspecified part of lung J18.9 Pneumonia type: due to unspecified organism Laterality: bilateral Lung location: unspecified part of lung Chronic obstructive pulmonary disease, unspecified COPD type J44.9 COPD type: unspecified COPD COPD with acute exacerbation J44.1 Acute on chronic hypoxic respiratory failure J96.21 Type 2 diabetes mellitus without complication, without long-term current use of insulin E11.9 Diabetes mellitus type: type 2 Diabetes mellitus 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
[2024-05-19 06:38] LABS: Glucose Point of Care 272 mg/dL (70-110)
[2024-05-19] MEDS: insulin glargine 100 units/1 mL 20 UNIT SUBCUT (06:45)
[2024-05-19] MEDS: amlodipine 10 mg Tablet PO (08:14)
[2024-05-19] MEDS: insulin lispro 100 unit/1 mL SUBCUT ×3 (08:14→17:10)
[2024-05-19] MEDS: tamsulosin 0.4 mg Capsule PO (08:14)
[2024-05-19] MEDS: TRAMadol 50 mg Tablet PO ×2 (08:14→17:12)
[2024-05-19] MEDS: metoprolol tartrate 25 mg Tablet PO ×2 (08:14→17:12)
[2024-05-19] MEDS: gabapentin 300 mg Capsule PO ×2 (08:14→17:12)
[2024-05-19] MEDS: albuterol 2.5 mg/3 mL Neb INHALATION ×4 (08:29→20:00)
[2024-05-19 09:44] LABS: Ferritin 23 ng/mL (30-400); Iron 20 ug/dL (59-158); Percent Saturation 5.8 % (20-50); Total Iron Binding Capacity 342 mcg/dl; Unsaturated Iron Binding 322 ug/dL (112-347)
[2024-05-19 10:00] LABS: Folate Level 14.9 ng/mL (4.5-32.2)
[2024-05-19 10:01] LABS: Vitamin B12 541 pg/mL (232-1245)
[2024-05-19 11:12] LABS: Glucose Point of Care 269 mg/dL (70-110)
[2024-05-19 15:25] LABS: Glucose Point of Care 291 mg/dL (70-110)
[2024-05-19 16:38] LABS: Glucose Point of Care 272 mg/dL (70-110)
[2024-05-19] MEDS: methylPREDNISolone sod succ 125 mg/2 mL INJ 60 MG IVP (17:11)
[2024-05-19] MEDS: pantoprazole 40 mg SDV IVP (17:11)
[2024-05-19] MEDS: enoxaparin 40 mg/0.4 mL Syringe SUBCUT (17:13)
[2024-05-19] MEDS: levofloxacin-dextrose 5 % 500 MG/100 ML PREMIX 100 MG IV (17:14)
[2024-05-19 20:48] LABS: Glucose Point of Care 310 mg/dL (70-110)
[2024-05-20 00:06] VITALS: BP 139/82; PULSE 80; RESP 18; TEMP 36.6; O2SAT 93
[2024-05-20 04:22] VITALS: BP 150/68; PULSE 78; RESP 12; TEMP 36.7; O2SAT 92
[2024-05-20 05:24] LABS: Basophils % 0.1 %; Hematocrit 30.1 % (37-53); Lymphocytes # 0.5 10^3/uL (0.8-4.8); Lymphocytes % 2.7 %; Mean Corpuscular HGB Conc 27.6 g/dL (30-55); Mean Corpuscular Hemoglobin 19.5 pg (27-33); Mean Corpuscular Volume 70.8 fl (82-101); Mean Platelet Volume 10.6 fL (7.4-10.4); Monocytes # 0.3 10^3/uL (0.2-0.9); Monocytes % 1.9 %; Neutrophils # 16.07 10^3/uL (1.8-7.7); Neutrophils % 94.2 %; Nucleated Red Blood Cells % 0 %; Platelet Count 286 10^3/cmm (157-399); Red Blood Count 4.25 10^6/uL (3.85-5.65); White Blood Count 17.05 10^3/uL (3.29-11.43)
[2024-05-20 05:36] VITALS: PULSE 73
[2024-05-20 05:50] LABS: Alanine Aminotransferase 6 U/L (0-41); Albumin Level 3.2 g/dL (3.5-5.2); Alkaline Phosphatase 103 U/L (40-130); Anion Gap 11.8 (5-19); Aspartate Amino Transferase 15 U/L (0-40); Blood Urea Nitrogen 24 mg/dL (8-23); Calcium 8.8 mg/dL (8.5-10.5); Carbon Dioxide 33 mmol/L (22-29); Chloride 96 mmol/L (98-107); Globulin 3.5 g/dL (1.3-4.6); Glucose 260 mg/dL (65-115); Osmolality Calculated 295 mOsm/kg (285-295); Potassium 4.8 mmol/L (3.5-5.1); Sodium 136 mmol/L (136-145); Total Bilirubin 0.2 mg/dL (0.15-1.2); Total Protein 6.7 g/dL (6.6-8.7)
[2024-05-20] MEDS: methylPREDNISolone sod succ 125 mg/2 mL INJ 60 MG IVP (05:53)
[2024-05-20] MEDS: losartan 50 mg Tablet 25 MG PO (05:55)
[2024-05-20] MEDS: finasteride 5 mg Tablet PO (05:56)
[2024-05-20] MEDS: aspirin 81 mg EC Tablet PO (05:56)
[2024-05-20] MEDS: bumetanide 1 mg Tablet PO (05:57)
[2024-05-20] MEDS: insulin glargine 100 units/1 mL 20 UNIT SUBCUT (05:58)
[2024-05-20 06:48] LABS: Glucose Point of Care 271 mg/dL (70-110)
[2024-05-20 08:00] VITALS: BP 151/68; PULSE 76; PULSE 82; RESP 17; RESP 18; TEMP 36.9; O2SAT 92
[2024-05-20] MEDS: albuterol 2.5 mg/3 mL Neb INHALATION (08:02)
[2024-05-20] MEDS: insulin lispro 100 unit/1 mL SUBCUT (08:08)
[2024-05-20] MEDS: TRAMadol 50 mg Tablet PO (08:10)
[2024-05-20] MEDS: tamsulosin 0.4 mg Capsule PO (08:10)
[2024-05-20] MEDS: amlodipine 10 mg Tablet PO (08:11)
[2024-05-20] MEDS: metoprolol tartrate 25 mg Tablet PO (08:11)
[2024-05-20] MEDS: gabapentin 300 mg Capsule PO (08:12)
--- NOTE | 2024-05-20 08:46 | P.PN_ITS ---
Subjective 2 Subjective: Symptomatically has been feeling better. Sugars have trended up since hospitalization, likely due to steroids. Most recent check showed 260. Hemoglobin A1c was checked and was 6.1, so he is well-controlled diabetic. Blood culture did show gram-positive rods 1/3 bottles. May be a contaminant. Repeats are pending. Blood pressure was a little high this morning 151/68. He is back on 2-1/2 L nasal cannula and satting in the 90s. Vitals/I&O/Wt Last Vital Signs Temp 98.4 F 05/20/24 08:00 Pulse 82 05/20/24 08:00 Resp 17 05/20/24 08:00 BP 151/68 05/20/24 08:00 Pulse Ox 92 05/20/24 08:00 O2 Del Method Nasal Cannula 05/20/24 08:00 O2 Flow Rate 2.5 05/20/24 08:00 05/19/24 05/20/24 05/20/24 22:59 06:59 14:59 Intake Total 340 / 820 360 / 360 Output Total 400 / 400 Balance 340 / 820 -400 / 420 360 / 360 Weight last 48 hrs Weight 185 lb Weight 185 lb 14.4 oz Weight 183 lb 5 oz Weight 175 lb Physical Exam 2 Narrative: General: Cooperative patient in no apparent distress. Patient in respiratory distress with mild activity. HEENT: Normocephalic, Atraumatic. External ears normal. Nasal passages patent without drainage. MMM. Heart: RRR. Resp: There are widespread crackles, rhonchi, and occasional wheezes. Abd: Soft, non-tender. Non-distended. Extremities: He is very weak and unstable when standing. Skin: No rash or lesions on exposed areas. Data 05/20/24 04:51 05/20/24 04:51 Micro: Microbiology 05/19/24 21:20 Blood Culture - Preliminary Blood SPECIMEN COLLECTED 05/19/24 21:28 Blood Culture - Preliminary Blood SPECIMEN COLLECTED 05/18/24 13:53 Blood Culture - Preliminary Blood 05/18/24 13:55 Blood Culture - Preliminary Blood NEGATIVE TO DATE A&P PDMP PDMP Reviewed: Not Reviewed Coding Level of Care Code Acute Code for Chg Fwd
--- NOTE | 2024-05-20 09:06 | PM.DCS ---
Discharge Providers Date of Admission: 05/18/24 14:41 Date of Discharge: May 20, 2024 Attending Provider at Admission: Laurent Rodriguez DO Attending Provider at Discharge: Laurent Rodriguez DO Primary Care Provider: KINZA Perla Diagnoses at Discharge Discharge Diagnosis (1) Pneumonia: Status: Acute Qualifiers: Laterality: bilateral Lung location: unspecified part of lung Pneumonia type: due to unspecified organism Qualified Code(s): J18.9 - Pneumonia, unspecified organism (2) COPD (chronic obstructive pulmonary disease): Status: Acute Qualifiers: COPD type: unspecified COPD Qualified Code(s): J44.9 - Chronic obstructive pulmonary disease, unspecified (3) COPD with acute exacerbation: Status: Acute (4) Acute on chronic hypoxic respiratory failure: Status: Acute (5) Diabetes: Status: Acute Qualifiers: Diabetes mellitus complication status: without complication Diabetes mellitus long-term insulin use: without buttermilk drier operator use Diabetes mellitus type: type 2 Qualified Code(s): E11.9 - Type 2 diabetes mellitus without complications (6) Hypertension: Status: Acute Qualifiers: Hypertension type: essential hypertension Qualified Code(s): I10 - Essential (primary) hypertension (7) Leg swelling: Status: Acute Reason for Visit Reason for Visit: trouble breathing Brief History: Darin Bhardwaj is a 84 year old male with a history of BPH, chronic hypoxemic respiratory failure on 2 to 3 L nasal cannula at all times, COPD/asbestosis, diabetes, hyperlipidemia, hypertension and congestive heart failure who presents to the emergency room with worsening shortness of breath. He was treated for pneumonia from his PCP, which consisted of Augmentin and Azithromycin. States that he did not have improvement with antibiotics and family says he continue to worsen. He is had increased oxygen requirements requiring at least 3 L at all times. He generally just wears his oxygen at night. He has worsening exertional dyspnea. Reports that he has had increased respiratory effort and has been coughing up some thick white and yellow sputum. Reports that he had prostate surgery in the last couple of months. Reports that his O2 sats have been in the 80's% on his home 2 L. In the ER, chest x-ray was obtained which showed multiple areas of scarring with possible consolidation. Hospital Course Hospital Course Symptomatically has been feeling better. Sugars have trended up since hospitalization, likely due to steroids. Most recent check showed 260. Hemoglobin A1c was checked and was 6.1, so he is well-controlled diabetic. Blood culture did show gram-positive rods 1/3 bottles. May be a contaminant. Repeats are pending. Blood pressure was a little high this morning 151/68. He is back on 2-1/2 L nasal cannula and satting in the 90s. States that he feels back to his normal self. He was on his baseline home oxygen requirement. Discussed with him regarding his positive blood culture for 1/4 gram-positive rods. This is likely a contaminant this was explained to the patient. He did have good response to the levofloxacin and remained afebrile throughout the rest of his stay. His white count did trend up some but this was thought to be related to the steroids. He was discharged on a continued prescription of levofloxacin, and he was encouraged to follow-up with his primary care later this week to review if blood cultures repeated were positive. Physical Exam Narrative: General: Cooperative patient in no apparent distress. Patient in respiratory distress with mild activity. HEENT: Normocephalic, Atraumatic. External ears normal. Nasal passages patent without drainage. MMM. Heart: RRR. Resp: There are widespread crackles, rhonchi, and occasional wheezes. Abd: Soft, non-tender. Non-distended. Extremities: He is very weak and unstable when standing. Skin: No rash or lesions on exposed areas. Discharge Data Studies Completed and Pending Completed Studies During Hospitalization Category Date Time Status CT chest wo con [id number] Routine Cat Scan 05/18/24 17:19 Completed XR chest 1V portable [id number] Stat Exams 05/18/24 13:03 Completed Pending at discharge Category Date Time Status Blood Culture Stat Lab 05/18/24 13:53 Results Blood Culture Stat Lab 05/19/24 21:20 Results Complete Blood Count w/Auto AM LABS Lab 05/21/24 04:00 Ordered Comprehensive Metabolic Panel AM LABS Lab 05/21/24 04:00 Ordered Radiology Impressions Chest X-Ray 05/18/24 13:03 IMPRESSION: Multiple chronic changes as above. No acute chest abnormality. Chest CT 05/18/24 17:19 IMPRESSION: 1. Bilateral pleural calcifications most consistent with asbestosis exposure. 2. Prominent 6.1 x 7.8 x 4.3 cm partially calcified soft tissue thickening/mass in the right posterior pleural space which may be asbestosis related fibrosis although neoplasm is not ruled out. 3. 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 Laboratory Results WBC 17.05 10^3/uL (3.29-11.43) H 05/20/24 04:51 RBC 4.25 10^6/uL (3.85-5.65) 05/20/24 04:51 Hgb 8.30 g/dL (11.27-16.99) L 05/20/24 04:51 Hct 30.1 % (37-53) L 05/20/24 04:51 MCV 70.8 fl (82-101) L 05/20/24 04:51 MCH 19.5 pg (27-33) L 05/20/24 04:51 MCHC 27.6 g/dL (30-55) L 05/20/24 04:51 RDW 18.0 % (12.1-15.1) H 05/20/24 04:51 Plt Count 286 10^3/cmm (157-399) 05/20/24 04:51 MPV 10.6 fL (7.4-10.4) H 05/20/24 04:51 Neut % (Auto) 94.2 % 05/20/24 04:51 Lymph % (Auto) 2.7 % 05/20/24 04:51 Summers % (Auto) 1.9 % 05/20/24 04:51 Eos % (Auto) 0.0 % 05/20/24 04:51 Baso % (Auto) 0.1 % 05/20/24 04:51 Neut # (Auto) 16.07 10^3/uL (1.8-7.7) H 05/20/24 04:51 Lymph # (Auto) 0.5 10^3/uL (0.8-4.8) L 05/20/24 04:51 Summers # (Auto) 0.3 10^3/uL (0.2-0.9) 05/20/24 04:51 Eos # (Auto) 0.0 10^3/uL (0.0-0.8) 05/20/24 04:51 Baso # (Auto) 0.0 10^3/uL (0.0-0.1) 05/20/24 04:51 Nucleated RBC % (auto) 0 % 05/20/24 04:51 Nucleated RBCs # 0.0 /100WBC 05/20/24 04:51 Specimen Type Arterial 05/18/24 13:06 Sample Site Radial, right 05/18/24 13:06 ABG pH 7.45 (7.35-7.45) 05/18/24 13:06 ABG pCO2 53.4 mmHg (35-45) H 05/18/24 13:06 ABG pO2 53.7 mmHg (80.0-100.0) L 05/18/24 13:06 ABG HCO3 36.9 mmol/L (22-26) H 05/18/24 13:06 ABG O2 Saturation 88.5 05/18/24 13:06 ABG Base Excess 11.6 mmol/L (-2.0-2.0) H 05/18/24 13:06 Rodolfo Test Pos 05/18/24 13:06 A-a O2 Gradient 4.0 mmHg (5-10) L 05/18/24 13:06 Hematocrit 22.9 % (42-52) L 05/18/24 13:06 Hgb O2 Saturation 86.1 % (95-100) L 05/18/24 13:06 Carboxyhemoglobin 2.3 %THgb (0.4-20.1) 05/18/24 13:06 Methemoglobin 0.4 % (0.4-1.5) 05/18/24 13:06 Total Hemoglobin 7.5 g/dL (14-18) L 05/18/24 13:06 Sodium 140.0 mmol/L (131-143) 05/18/24 13:06 Potassium 3.8 mmol/L (3.5-5.0) 05/18/24 13:06 Glucose 116.0 mg/dL (70-115) H 05/18/24 13:06 Ionized Calcium 1.2 mmol/L (1.1-1.4) 05/18/24 13:06 O2 Delivery Device Nc 05/18/24 13:06 O2 Liters/Min 3.0 % 05/18/24 13:06 Chemistry Technical Officer ID Walci 05/18/24 13:06 Sodium 136 mmol/L (136-145) 05/20/24 04:51 Potassium 4.8 mmol/L (3.5-5.1) 05/20/24 04:51 Chloride 96 mmol/L (98-107) L 05/20/24 04:51 Carbon Dioxide 33 mmol/L (22-29) H 05/20/24 04:51 Anion Gap 11.8 (5-19) 05/20/24 04:51 BUN 24 mg/dL (8-23) H 05/20/24 04:51 Creatinine 1.1 mg/dL (0.7-1.2) 05/20/24 04:51 GFR Calculation Not Reportable 05/20/24 04:51 Glucose 260 mg/dL (65-115) H 05/20/24 04:51 POC Glucose 271 mg/dL (70-110) H 05/20/24 06:39 Estimat Average Glucose 128 05/19/24 04:31 Hemoglobin A1c 6.1 % (4.0-6.0) H 05/19/24 04:31 Calculated Osmolality 295 mOsm/kg (285-295) 05/20/24 04:51 Lactic Acid 1.5 mmol/L (0.5-2.2) 05/18/24 13:33 Calcium 8.8 mg/dL (8.5-10.5) 05/20/24 04:51 Iron 20 ug/dL (59-158) L 05/19/24 04:31 TIBC 342 mcg/dl 05/19/24 04:31 % Saturation 5.8 % (20-50) L 05/19/24 04:31 Unsat Iron Binding 322 ug/dL (112-347) 05/19/24 04:31 Ferritin 23 ng/mL (30-400) L 05/19/24 04:31 Total Bilirubin 0.2 mg/dL (0.15-1.2) 05/20/24 04:51 AST 15 U/L (0-40) 05/20/24 04:51 ALT 6 U/L (0-41) 05/20/24 04:51 Alkaline Phosphatase 103 U/L (40-130) 05/20/24 04:51 C-Reactive Protein 39.1 mg/L (0.0-4.9) H 05/18/24 13:33 NT-Pro-B Natriuret Pep 403 pg/mL (0-450) 05/18/24 13:33 Total Protein 6.7 g/dL (6.6-8.7) 05/20/24 04:51 Albumin 3.2 g/dL (3.5-5.2) L 05/20/24 04:51 Globulin 3.5 g/dL (1.3-4.6) 05/20/24 04:51 Vitamin B12 541 pg/mL (232-1245) 05/19/24 04:31 Folate 14.9 ng/mL (4.5-32.2) 05/19/24 04:31 Procalcitonin 0.06 ng/mL (0-0.5) 05/18/24 13:33 TSH 0.60 uIU/mL (0.27-4.20) 05/19/24 04:31 Influenza A (PCR) Negative (Negative) 05/18/24 13:33 Influenza Type B (PCR) Negative (Negative) 05/18/24 13:33 RSV (PCR) Negative (Negative) 05/18/24 13:33 SARS-CoV-2 (PCR) Negative (Negative) 05/18/24 13:33 Blood Type A Positive 05/18/24 14:42 Rho(D) Type Rh positive 05/18/24 14:42 Antibody Screen Negative 05/18/24 14:42 Crossmatch See Detail 05/18/24 14:42 Vitals Last Vital Signs Temp 98.4 F 05/20/24 08:00 Pulse 82 05/20/24 08:00 Resp 17 05/20/24 08:00 BP 151/68 05/20/24 08:00 Pulse Ox 92 05/20/24 08:00 O2 Del Method Nasal Cannula 05/20/24 08:00 O2 Flow Rate 2.5 05/20/24 08:00 Discharge Plan Discharge Patient Disposition: Home Condition: Stable Prescriptions: New levofloxacin 500 mg tablet 500 mg PO DAILY 5 Days Qty: 5 0RF Continued metoprolol tartrate 25 mg tablet 25 mg PO BID Qty: 180 1RF finasteride 5 mg tablet 5 mg PO QAM Qty: 90 1RF tramadol 50 mg tablet 50 mg PO BID Qty: 60 2RF (DME) oxygen at 3L See Rx Instructions .Route .MEDSUPPLY Qty: 1 0RF Rx Instructions: As directed fluticasone propionate [Flonase Allergy Relief] 50 mcg/actuation spray,suspension 2 spray intranasal DAILY Qty: 16 2RF Rx Instructions: administer into each nostril (DME) pen needle, diabetic [TRUEplus Pen Needle] 31 gauge x 5/16 needle See Rx Instructions .ROUTE .COMPLEX Qty: 100 5RF Dose Instruction: USE DIRECTED Rx Instructions: USE ONE DAILY TO INJECT INSULIN (DME) Bard 14 [place] urological catheter See Rx Instructions .Route .MEDSUPPLY Qty: 1 11RF Rx Instructions: Pt to self cath 5-6 times daily keeping volumes 500 ml or lower in bladder losartan 25 mg tablet 25 mg PO QAM Qty: 90 1RF aspirin 81 mg Tablet,Delayed Release (Dr/Ec) 81 mg PO QAM fluticasone furoate-vilanterol [Breo Ellipta] 100-25 mcg/dose blister with device 1 inh INHALATION QAM albuterol sulfate 90 mcg/actuation HFA aerosol inhaler 2 puff INHALATION QID PRN (Reason: Shortness Of Breath) tamsulosin 0.4 mg capsule 0.4 mg PO DAILY amlodipine 10 mg tablet 10 mg PO DAILY gabapentin 300 mg capsule 300 mg PO BID omeprazole 20 mg capsule,delayed release(DR/EC) 20 mg PO BID bumetanide 1 mg tablet 1 mg PO QAM insulin glargine [Lantus Solostar U-100 Insulin] 100 unit/mL (3 mL) insulin pen 20 unit SUBCUT QAM Discharge Orders: Discharge Order (Routine); Ordered 05/20/24 Ordered By: Laurent Rodriguez Referrals: Kelly Gutierrez FNP [Primary Care Provider] - 05/28/24 10:20 am Patient Instructions: Levofloxacin (By mouth), COPD (Chronic Obstructive Pulmonary Disease) (DC), Community Acquired Pneumonia (DC), COPD Stoplight, Opioid Safety Discharge Attestations Time Spent in Discharge Care*: greater than 30 min Specific Discharge Activities: educating patient, educating and/or supporting family/caregiver, discussing with pcp/other providers, discussing with caseworker protective services/social workers/dc planners, documenting/other paperwork and evaluating patient/reviewing data Quality Metrics Clinical Quality Measures [ No reported AMI, CVA or VTE this stay] Coding Level of Care Code Acute Code for Chg Fwd Total time (in minutes) for Discharge: 32 Diagnoses Pneumonia of both lungs due to infectious organism, unspecified part of lung J18.9 Laterality: bilateral Lung location: unspecified part of lung Pneumonia type: due to unspecified organism Chronic obstructive pulmonary disease, unspecified COPD type J44.9 COPD type: unspecified COPD COPD with acute exacerbation J44.1 Acute on chronic hypoxic respiratory failure J96.21 Type 2 diabetes mellitus without complication, without long-term current use of insulin E11.9 Diabetes mellitus complication status: without complication Diabetes mellitus buttermilk drier operator insulin use: without buttermilk drier operator use Diabetes mellitus type: type 2 Essential hypertension I10 Hypertension type: essential hypertension Leg swelling M79.89
[2024-05-20 11:32] VITALS: BP 151/68; PULSE 82; RESP 17; TEMP 36.9; O2SAT 92
== END 2024-05-20 11:35 | disposition home or self-care (01) | DRG 193 ==
LOC: ER 15:03 → ER IP 16:20 → MEDSURG 17:47
PROVIDERS: Admitting Provider Family Medicine; Emergency Provider Emergency Medicine; PCP Nurse Practitioner Family; Visit Provider Family Medicine
DX: J18.9 Pneumonia, unspecified organism (principal); J96.21 Acute and chronic respiratory failure with hypoxia; J44.0 Chronic obstructive pulmonary disease with (acute) lower respiratory infection; J44.1 Chronic obstructive pulmonary disease with (acute) exacerbation; Z99.81 Dependence on supplemental oxygen; E11.9 Type 2 diabetes mellitus without complications; I11.0 Hypertensive heart disease with heart failure; I50.9 Heart failure, unspecified; N40.0 Benign prostatic hyperplasia without lower urinary tract symptoms; J61 Pneumoconiosis due to asbestos and other mineral fibers; E78.5 Hyperlipidemia, unspecified; K21.9 Gastro-esophageal reflux disease without esophagitis; Z79.82 Long term (current) use of aspirin; Z79.4 Long term (current) use of insulin
CPT/HCPCS: 36415; 36416; 36430; 36600; 71045; 71250; 80051; 80053; 82330; 82607; 82728; 82746; 82805; 82962; 83036; 83540; 83550; 83605; 83880; 84145; 84443; 85025; 86140; 86850; 86900; 86920; 87040; 87150; 87205; 87637; 93005; 94640; 94664; 96365; 96372; 96375; 96376; 99285; J1650; J1815; J1956; J2020; J2185; J2470; J2919; J7613; J9999; P9016

== ENCOUNTER → 2024-06-13 10:27 | Outpatient (BNVA) | payer MEDICARE, SELFPAY | PROVIDERS: PCP Nurse Practitioner Family; Visit Provider Nurse Practitioner Family | DX: R97.20 Elevated prostate specific antigen [PSA] (principal); D64.9 Anemia, unspecified | CPT/HCPCS: 80053; 84153; 85025 ==

== ENCOUNTER → 2024-07-01 14:06 | Outpatient (BNVA) | payer MEDICARE, SELFPAY | PROVIDERS: PCP Nurse Practitioner Family; Visit Provider Nurse Practitioner Family | DX: E87.5 Hyperkalemia (principal) | CPT/HCPCS: 80048; 85025 ==

== ENCOUNTER → 2024-07-09 10:06 | Outpatient (BNVA) | payer MEDICARE, SELFPAY | PROVIDERS: PCP Nurse Practitioner Family; Visit Provider Nurse Practitioner Family | DX: R94.39 Abnormal result of other cardiovascular function study (principal); I10 Essential (primary) hypertension; N17.9 Acute kidney failure, unspecified; E78.2 Mixed hyperlipidemia; R60.0 Localized edema; Z79.82 Long term (current) use of aspirin | CPT/HCPCS: 99213 ==